=== PATIENT | female | born 1935 | race Caucasian/White ===

== ENCOUNTER 2017-04-30 20:32 | Emergency (ER) | payer MEDICARE, OTHER ==
[~2017-04-30] VITALS: Ht 162.6 cm; Wt 83.5 kg
--- OUTSIDE RECORDS SUMMARY | ~2017-04-30 | XMS | Clinical Summary ---
Demographics + + + | Address | [address] | | | [place] [address] | + + + | Home Phone | | + + + | Preferred Language | Unknown | + + + | Marital Status | Single | + + + | Roman Catholic Affiliation | Unknown | + + + [...] | Unavailable | + + + Support +------+ +---------+ + | Name | Relationship | Address | Phone | +------+ +---------+ + ECON | Unknown | Unavailable | +------+ +---------+ + Care Team Providers + +------+-------+ | Care Process Line Operator Name | Role | Phone | + +------+-------+ | Tanvir Waters DO | PP | tel | + +------+-------+ Source Comments BOGDAN is fully live on both [facility] Ambulatory and [facility] InPatient.[facility] Allergies + + + + + + [...] 1 Tab by mouth | | | 12/20 | | Activ | | Oral Tablet | every two days. | | | 09/07 | | e | | | | | | 11 | | | + + +-------+---------+------+------+-------+ | ALPRAZolam XR 2 mg | Take 1 Tab by mouth | | | 08/2 | | Activ | | Oral Tablet | once daily at | | | 4/20 | | e | | Extended Release [...] kidney disease) stage 4, GFR 15-29 ml/min (HCC) | | + +---+ + + | 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 | | GFR < 20 mL/min | + + + +---+ | Diabetes mellitus, type II (HCC) | | + +---+ + + [...] + +---+ | Reactive airways dysfunction syndrome | | + +---+ + + | [...] lumpectomy approximately for benign | | disease 2003 | + + Social History + + [...] | + + + + + | INFLUENZA VACCINE | | | | | (FLU SHOT) | 7 | | | + + + + + Results Not on filefrom Last 3 Months
[~2017-04-30 20:32] MED LIST: ACETAMINOPHEN325 M1 PO; ALBUTEROL SULFAT4 MG PO; ALPRAZOLAM2 MG PO; AMLODIPINE BES2.5 MG PO; ATROVENT HFA12.9 GM INH; BENADRYL25 MG PO; COREG25 MG PO; EFFEXOR XR150 MG PO; FUROSEMIDE40 MG PO; KEFLEX500 MG PO; LISINOPRIL5 MG PO; LOSARTAN POTASS50 MG PO; NORCO 5-325 TA1 EACH PO; NOVOLOG MI100 UNIT/1 SUB-Q; OMEPRAZOLE20 MG PO; PARICALCITOL2 MCG PO; POTASSIUM CHLO20 ME1 PO; PRAVASTATIN SOD40 MG PO
== END 2017-04-30 21:00 | disposition left against medical advice (07) ==
LOC: ED 20:32
DX: Z53.21 Procedure and treatment not carried out due to patient leaving prior to being seen by health care provider (principal)

== ENCOUNTER 2018-08-07 11:50 | Observation (INO) | payer MEDICARE, OTHER, MEDICAID ==
[~2018-08-07] VITALS: Ht 162.6 cm; Wt 83.5 kg
--- OUTSIDE RECORDS SUMMARY | ~2018-08-07 | XMS | Encounter Summary ---
Demographics + + + | Address | [address] | | | [place] [address] | + + + | Home Phone | | + + + | Preferred Language | Unknown | + + + | Marital Status | Single | + + + | Adventist Affiliation | [phone] | + + + | Race | Unknown | + + + | Ethnic Group | Unknown | + + + Author + + + | Author | [facility] | | | and [place] | + + + | Organization | [facility] | | | and [place] | + + + | Address | Unknown | + + + | Phone | Unavailable | + + + Support + + + + + | Name | Relationship | Address | Phone | + + + + + | Brissa Dale | ECON | [address] | | | | | [place] | | | | | [address] | | + + + + + Care Team Providers + +------+ + | Care Auger Mill Operator Name | Role | Phone | + +------+ + | Shaan Manzanares PCP | | | MD | | | + +------+ + Encounter Details +--------+ + + + + | Date | Type | Department | Care Team | Description | +--------+ + + + + | 06/03/ | Orders Only | [facility] | Andre Pickett | CHRONIC KIDNEY | | 2019 | | NEPHROLOGY [address] | M, DO [address] | DISEASE STAGE IV | | | | [address] | [place] | ([place]) (Primary | | | | [place], [place] | [place], [place] | Dx); Mixed | | | | [address] | [address] | hyperlipidemia; Type | | | | [phone] | | 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 | | | | | | disease, unspecified | | | | | | whether prison | | | | | | insulin use (HCC) | +--------+ + + + + Social History + + + +--------+ + | Tobacco Use | Types | Packs/Day | Years | Date | | | | | Used | | + + + +--------+ + | Former Smoker | Cigarettes | 1 | 15 | Quit: 05/21/1983 | + + + +--------+ + + +---+---+---+ | Smokeless Tobacco: | | | | | Never Used | | | | + +---+---+---+ + + +---------+ + | Alcohol Use | Drinks/We | oz/Week | Comments | | | ek | | | + + +---------+ + | No | | | | + + +---------+ + + + + | Sex Assigned at | Date Recorded | | | | + + + | Not on file | | + + + as of this encounter Functional Status + + + + | Functional Status | Response | Date of Assessment | + + + + | Are you deaf or do you have serious | No | 09/12/2013 | | difficulty hearing? | | | + + + + | Are you blind or do you have serious | No | 09/12/2013 | | difficulty seeing, even when wearing | | | | glasses? | | | + + + + | Do you have serious difficulty walking or | Yes | 09/12/2013 | | climbing stairs? (5 years old or older) | | | + + + + | Do you have difficulty dressing or bathing? | No | 09/12/2013 | | (5 years old or older) | | | + + + + | Because of a physical, mental, or emotional | No | 09/12/2013 | | condition, do you have difficulty doing | | | | errands alone such as visiting a doctor's | | | | office or shopping? [15 years old or | | | | older)] | | | + + + + + + + + | Cognitive Status | Response | Date of Assessment | + + + + | Because of a physical, mental, or emotional | No | 09/12/2013 | | condition, do you have serious difficulty | | | | concentrating, remembering, or making | | | | decisions? (5 years old or older) | | | + + + + as of this encounter Progress Notes Lizebth Negro RN - 06/03/2018 1626 PSTLabs for nephrology appt on 07/01/18 sent to Arsenio santiago in this encounter Plan of Treatment +--------+ + + + + | Date | Type | Specialty | Care Team | Description | +--------+ + + + + | 08/19/ | Off-Site | Nephrology | [facility]ett | | | 2018 | Visit | | Colin, [address] [place] [address] | | | | | | [place], [address] | | | | | | [place] | | | | | | [phone] | | | | | | | | +--------+ + + + + as of this encounter Visit Diagnoses + + | Diagnosis | + + | CHRONIC KIDNEY DISEASE STAGE IV (SEVERE) - Primary | + + | Chronic kidney disease, Stage IV (severe) | + + | Mixed hyperlipidemia | + + | Type 2 diabetes mellitus with stage 4 chronic kidney disease, unspecified whether long | | term insulin use (HCC) | + +"
--- OUTSIDE RECORDS SUMMARY | ~2018-08-07 | XMS | Clinical Summary ---
Demographics + + + | Address | [address] | | | [place] [address] | + + + | Home Phone | | + + + | Preferred Language | Unknown | + + + | Marital Status | Single | + + + | Church Affiliation | Unknown | + + + | Race | Unknown | + + + | Ethnic Group | Unknown | + + + Author + + + | Author | [facility] | + + + | Organization | [facility] | + + + | Address | Unknown | + + + | Phone | Unavailable | + + + Support + + + + + | Name | Relationship | Address | Phone | + + + + + | Brissa Corrales | ECON | [address] | | | | | [place] | | | | | [address] | | + + + + + Care Team Providers + +------+ + | Care Fertilizer Mixer Name | Role | Phone | + +------+ + | Hardik Waters DO | PP | | + +------+ + Allergies + + + + + + | Active Allergy | Reactions | Severity | Noted | Comments | | | | | Date | | + + + + + + | Sulfa Antibiotics | Hives | High | 06/08/19 | | | | | | 15 | | + + + + + + Current Medications + + +-------+---------+------+------+-------+ | Prescription | Sig. | Disp. | Refills | Star | End | Statu | | | | | | t | Date | s | | | | | | Date | | | + + +-------+---------+------+------+-------+ | carvedilol (COREG) | Take 25 mg by mouth | | | | | Activ | | 25 MG tablet | 2 (two) times daily | | | | | e | | | with meals. | | | | | | + + +-------+---------+------+------+-------+ | venlafaxine | Take 75 mg by mouth | | | | | Activ | | (EFFEXOR) 75 MG | 3 (three) times | | | | | e | | tablet | daily. | | | | | | + + +-------+---------+------+------+-------+ | furosemide (LASIX) | Take 40 mg by mouth | | | | | Activ | | 40 MG tablet | 2 (two) times daily. | | | | | e | + + +-------+---------+------+------+-------+ | omeprazole | Take 20 mg by mouth | | | | | Activ | | (PRILOSEC) 20 MG | every morning before | | | | | e | | capsule | breakfast. | | | | | | + + +-------+---------+------+------+-------+ | pravastatin | Take 40 mg by mouth | | | | | Activ | | (PRAVACHOL) 40 MG | nightly. | | | | | e | | tablet | | | | | | | + + +-------+---------+------+------+-------+ | ALPRAZolam (XANAX | Take 2 mg by mouth | | | | | Activ | | XR) 2 MG 24 hr | every morning. | | | | | e | | tablet | | | | | | | + + +-------+---------+------+------+-------+ | paricalcitol | Take 1 mcg by mouth | | | | | Activ | | (ZEMPLAR) 1 MCG | daily. | | | | | e | | capsule | | | | | | | + + +-------+---------+------+------+-------+ | insulin aspart | Inject into the | | | | | Activ | | (NOVOLOG) 100 | skin 3 (three) times | | | | | e | | UNIT/ML injection | daily before meals. | | | | | | + + +-------+---------+------+------+-------+ | diphenhydrAMINE | Take 25 mg by mouth | | | | | Activ | | (BENADRYL) 25 mg | every 6 (six) hours | | | | | e | | capsule | as needed for | | | | | | | | Itching. | | | | | | + + +-------+---------+------+------+-------+ | acetaminophen | Take 325 mg by mouth | | | | | Activ | | (TYLENOL) 325 MG | every 6 (six) hours | | | | | e | | tablet | as needed for Pain. | | | | | | + + +-------+---------+------+------+-------+ | nitroGLYCERIN | Place 0.6 mg under | | | | | Activ | | (NITROSTAT) 0.6 MG | the tongue every 5 | | | | | e | | SL tablet | (five) minutes as | | | | | | | | needed for Chest | | | | | | | | pain. | | | | | | + + +-------+---------+------+------+-------+ | amLODIPine | Take 5 mg by mouth | | | | | Activ | | (NORVASC) 5 MG | daily. | | | | | e | | tablet | | | | | | | + + +-------+---------+------+------+-------+ | ipratropium | Take 0.5 mg by | | | | | Activ | | (ATROVENT) 0.02 % | nebulization 4 | | | | | e | | nebulizer solution | (four) times daily. | | | | | | + + +-------+---------+------+------+-------+ Active Problems Not on file Social History + +-------+ +--------+------+ | Tobacco Use | Types | Packs/Day | Years | Date | | | | | Used | | + +-------+ +--------+------+ | Former Smoker | | | | | + +-------+ +--------+------+ + + +---------+ + | Alcohol Use | Drinks/We | oz/Week | Comments | | | ek | | | + + +---------+ + | No | | | | + + +---------+ + + + + | Sex Assigned at | Date Recorded | | | | + + + | Not on file | | + + + Last Filed Vital Signs + + + + | Vital Sign | Reading | Time Taken | + + + + | Blood Pressure | 162/67 | 06/08/2014 4:28 PM PST | + + + + | Pulse | 79 | 06/08/2014 4:28 PM PST | + + + + | Temperature | 36.9 C (98.5 F) | 06/08/2014 1:18 PM PST | + + + + | Respiratory Rate | 16 | 06/08/2014 4:28 PM PST | + + + + | Oxygen Saturation | 97% | 06/08/2014 4:28 PM PST | + + + + | Inhaled Oxygen | - | - | | Concentration | | | + + + + | Weight | 88 kg (194 lb) | 06/08/2014 1:18 PM PST | + + + + | Height | 162.6 cm (5' 4") | 06/08/2014 1:18 PM PST | + + + + | Body Mass Index | 33.3 | 06/08/2014 1:18 PM PST | + + + + Plan of Treatment Not on file Results Not on filefrom Last 3 Months Insurance + +--------+ +------+-------+ + | Payer | Benefi | Subscriber | Type | Phone | Address | | | t Plan | ID | | | | | | / | | | | | | | Group | | | | | + +--------+ +------+-------+ + | MEDICARE | MEDICA | [id number] | | | [address] | | | RE | | | | [place] [address] | | | IP-OP | | | | | + +--------+ +------+-------+ + | [employer] | ODS | [id number] | | | | | | HEALTH | | | | | | | PLAN | | | | | + +--------+ +------+-------+ + + +--------+ +--------+ + + | Guarantor Name | Accoun | Relation to | Date | Phone | Billing Address | | | t Type | Patient | of | | | | | | | | | | + +--------+ +--------+ + + | DALIA KAT | Person | Self [birth year] Home: | [address] | | | man[place] | | 1936 | [phone] [place] | | | [place] | | | [phone] | [phone] | + +--------+ +--------+ + +
--- OUTSIDE RECORDS SUMMARY | ~2018-08-07 | XMS | Clinical Summary ---
Demographics + + + | Address | [address] | | | [place] [address] | + + + | Home Phone | | + + + | Preferred Language | Unknown | + + + | Marital Status | Single | + + + | Buddhist Affiliation | 1041 | + + + | Race | Unknown | + + + | Ethnic Group | Unknown | + + + Author + + + | Author | [facility] | | | and [place] | + + + | Organization | [facility] | | | [...] [place] | | | | | [address] | | + + + + + Care Team Providers + +------+ + | Care Director Of Industrial Relations Name | Role | Phone | + +------+ + | Shaan Manzanares | PP | | | MD | | | + +------+ + Allergies + + + + + + | Active Allergy | Reactions | Severity | Noted | Comments | | | | | Date | | + + + + + + | Codeine Sulfate | Itching | Low | | | + + + + + + | Oxycodone | Itching | Low | 01/19/20 | | | | | | 11 | | + + + + + + | Sulfa Antibiotics | Rash | Low | | | + + + + + + Current Medications + + +---------+---------+------+------+-------+ | Prescription | Sig. | Disp. | Refills | Star | End | Statu | | | | | | t | Date | s | | | | | | Date | | | + + +---------+---------+------+------+-------+ | carvedilol (COREG) | Take 25 mg by mouth | | | 05/1 | | Activ | | 25 mg tablet | 2 times daily. | | | 01/07 | | e | | | | | | 12 | | | + + +---------+---------+------+------+-------+ | pravastatin | Take 40 mg by mouth | | | 09/18 | | Activ | | (PRAVACHOL) 40 MG | Daily. | | | 01/07 | | e | | tablet | | | | 12 | | | + + +---------+---------+------+------+-------+ | furosemide (LASIX) | Take 40 mg by mouth | | | 09/18 | | Activ | | 40 mg | 2 times daily. | | | 01/07 | | e | | tabletIndications: | | | | 12 | | | | Chronic kidney | | | | | | | | disease, stage III | | | | | | | | (moderate) ([facility]), | | | | | | | | Anemia in chronic | | | | | | | | kidney | | | | | | | | disease(285.21), | | | | | | | | Diabetes mellitus, | | | | | | | | type 2 ([facility]), CHF | | | | | | | | (congestive heart | | | | | | | | failure) ([facility]), | | | | | | | | Chronic kidney | | | | | | | | failure | | | | | | | + + +---------+---------+------+------+-------+ | insulin aspart | Inject 10 Units | | | | | Activ | | protamine-insulin | under the skin 2 | | | | | e | | aspart (NOVOLOG MIX | times daily (with | | | | | | | 70/30 FLEXPEN) 100 | breakfast & dinner). | | | | | | | units/mL | | | | | | | | injectionIndications | | | | | | | | : Chronic kidney | | | | | | | | disease, stage III | | | | | | | | (moderate) (HCC), | | | | | | | | Anemia in chronic | | | | | | | | kidney | | | | | | | | disease(285.21), | | | | | | | | Diabetes mellitus, | | | | | | | | type 2 (HCC), | | | | | | | | Secondary | | | | | | | | hyperparathyroidism | | | | | | | | (HCC) | | | | | | | + + +---------+---------+------+------+-------+ | venlafaxine | Take 75 mg by mouth. | | | | | Activ | | (EFFEXOR XR) 75 mg | total of 225 mg, | | | | | e | | 24 hr | daily. | | | | | | | capsuleIndications: | | | | | | | | Chronic kidney | | | | | | | | disease, stage IV | | | | | | | | (severe) (HCC), | | | | | | | | Diabetes mellitus, | | | | | | | | type 2 (HCC), Other | | | | | | | | and unspecified | | | | | | | | hyperlipidemia, | | | | | | | | Unspecified | | | | | | | | essential | | | | | | | | hypertension | | | | | | | + + +---------+---------+------+------+-------+ | venlafaxine | Take 150 mg by mouth | | | | | Activ | | (EFFEXOR XR) 150 mg | Daily. total of 225 | | | | | e | | 24 hr | mg, daily. | | | | | | | capsuleIndications: | | | | | | | | Chronic kidney | | | | | | | | disease, stage IV | | | | | | | | (severe) (HCC), | | | | | | | | Diabetes mellitus, | | | | | | | | type 2 (HCC), Other | | | | | | | | and unspecified | | | | | | | | hyperlipidemia, | | | | | | | | Unspecified | | | | | | | | essential | | | | | | | | hypertension | | | | | | | + + +---------+---------+------+------+-------+ | ATROVENT HFA 17 | Inhale 2 puffs into | | | 02/0 | | Activ | | MCG/ACT inhaler | the lungs Twice | | | 6/20 | | e | | | daily as needed. | | | 14 | | | + + +---------+---------+------+------+-------+ | albuterol (PROAIR | Inhale 2 puffs into | | | 06/0 | | Activ | | HFA) 90 mcg/puff | the lungs every 6 | | | 420 | | e | | inhalerIndications: | hours as needed. | | | 12 | | | | Chronic kidney | | | | | | | | disease, stage IV | | | | | | | | (severe) (HCC), | | | | | | | | Unspecified | | | | | | | | hypertensive kidney | | | | | | | | disease with chronic | | | | | | | | kidney disease | | | | | | | | stage I through | | | | | | | | stage IV, or | | | | | | | | unspecified(403.90), | | | | | | | | Hyperlipidemia, | | | | | | | | Secondary | | | | | | | | hyperparathyroidism | | | | | | | | (HCC) | | | | | | | + + +---------+---------+------+------+-------+ | NITROSTAT 0.4 MG | | | | 10/2 | | Activ | | SL tablet | | | | 8 | | e | | | | | | 14 | | | + + +---------+---------+------+------+-------+ | amLODIPine | Take 2.5 mg by mouth | | | 12/3 | | Activ | | (NORVASC) 5 mg | Daily. | | | 0/20 | | e | | tablet | | | | 14 | | | + + +---------+---------+------+------+-------+ | ALPRAZolam (XANAX | Take 1 tablet by | | 0 | 08/2 | | Activ | | XR) 3 MG 24 hr | mouth every morning. | | | 01/07 | | e | | tablet | | | | 17 | | | + + +---------+---------+------+------+-------+ | losartan (COZAAR) | Take 1 tablet by | 60 | 5 | 08/0 | | Activ | | 25 mg | mouth Daily. | tablet | | 11/07 | | e | | tabletIndications: | | | | 18 | | | | Essential | | | | | | | | hypertension with | | | | | | | | goal blood pressure | | | | | | | | less than 140/90, | | | | | | | | Secondary | | | | | | | | hyperparathyroidism | | | | | | | | (HCC), Chronic | | | | | | | | kidney disease, | | | | | | | | stage IV (severe) | | | | | | | | (HCC), Mixed | | | | | | | | hyperlipidemia | | | | | | | + + +---------+---------+------+------+-------+ | paricalcitol | Take 2 capsules by | 60 | 10 | 10/3 | | Activ | | (ZEMPLAR) 1 mcg | mouth daily. | capsule | | 0/20 | | e | | capsuleIndications: | Indications: | | | 18 | | | | Secondary | secondary | | | | | | | Hyperparathyroidism | hyperparathyroidism | | | | | | + + +---------+---------+------+------+-------+ Active Problems + + + | Problem | Noted Date | + + + | Awaiting kidney transplant status | 10/29/2013 | + + + + + | Overview: Referred to [facility] on 07/26/10 | | Status: Inactive due to GFR too high | + + + + + | CERVICAL STRAIN | 10/13/2011 | + + + | THORACIC STRAIN | 10/13/2011 | + + + | CANDIDIASIS, VAGINAL | 10/13/2011 | + + + | COPD | 10/19/2009 | + + + | ANEMIA IN CHRONIC KIDNEY DISEASE | 10/19/2009 | + + + + + | Overview: ICD-10 Record update | + + + +---+ | HYPERLIPIDEMIA | | + +---+ | DYSURIA | | + +---+ | CHRONIC KIDNEY DISEASE STAGE IV (SEVERE) | | + +---+ | SECONDARY HYPERPARATHYROIDISM | | + +---+ | DIABETES, TYPE 2 | | + +---+ | HYPERTENSION | | + +---+ | GERD | | + +---+ | ANXIETY STATE, UNSPECIFIED | | + +---+ + + | Overview: ICD-10 Record update | + + + +---+ | Migraine headache | | + +---+ | Depression | | + +---+ | CHF (congestive heart failure) (HCC) | | + +---+ | Other and unspecified hyperlipidemia | | + +---+ | Chronic airway obstruction, not elsewhere classified | | + +---+ | Other primary cardiomyopathies | | + +---+ | Type II or unspecified type diabetes mellitus without mention of | | | complication, not stated as uncontrolled | | + +---+ | Secondary hyperparathyroidism (of renal origin) | | + +---+ + + | Overview: ICD-10 Record update | + + + +---+ | Essential hypertension | | + +---+ | Esophageal reflux | | + +---+ | Sprain of neck | | + +---+ | Sprain of thoracic region | | + +---+ Resolved Problems + + + + | Problem | Noted | Resolved | | | Date | Date | + + + + | Unspecified hypertensive kidney disease with chronic kidney | 11/09/19 | | | disease stage I through stage IV, or unspecified(403.90) | 14 | 5 | + + + + | Chronic kidney disease, stage III (moderate) ([facility]) | 02/28/20 | | | | 12 | 5 | + + + + | Asthma | | | | | | 8 | + + + + Encounters +--------+ + + + + | Date | Type | Specialty | Care Team | Description | +--------+ + + + + | 07/17/ | Orders Only | | Andre Pickett | CHRONIC KIDNEY | | 2018 | | | DO Colin | DISEASE STAGE IV | | | | | | (SEVERE) (Primary | | | | | | Dx); Mixed | | | | | | hyperlipidemia; Type | | | | | | 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 | | | | | | disease, unspecified | | | | | | whether terminal make up operator | | | | | | insulin use (HCC) | +--------+ + + + + | 06/21/ | Abstract | | Andre Pickett | | | 2018 | | | DO Colin | | +--------+ + + + + | 01/31/ | Orders Only | | Andre Pickett | CHRONIC KIDNEY | | 2018 | | | M, DO | DISEASE STAGE IV | | | | | | (SEVERE) (Primary | | | | | | Dx); Mixed | | | | | | hyperlipidemia; Type | | | | | | 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 | | | | | | disease, unspecified | | | | | | whether longterm | | | | | | insulin use (HCC) | +--------+ + + + + | 06/11/ | Abstract | | Andre Pickett | | | 2018 | | | M, DO | | +--------+ + + + + | 06/03/ | Orders Only | | Andre Pickett | CHRONIC KIDNEY | | 2018 | | | M, DO | DISEASE STAGE IV | | | | | | (SEVERE) (Primary | | | | | | Dx); Mixed | | | | | | hyperlipidemia; Type | | | | | | 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 | | | | | | disease, unspecified | | | | | | whether longterm | | | | | | insulin use (HCC) | +--------+ + + + + from Last 3 Months Family History + + +------+ + | Medical History | Relation | Name | Comments | + + +------+ + | Diabetes | Other | | | + + +------+ + | Heart disease | Other | | | + + +------+ + | Stroke | Other | | | + + +------+ + + +------+--------+ + | Relation | Name | Status | Comments | + +------+--------+ + | Other | | | | + +------+--------+ + Social History + + + +--------+ [...] + + + | Blood Pressure | 152/60 | 12/24/20171749 PDT | + + + + | Pulse | 81 | 07/20/20141409 PST | + + + + | Temperature | 35.6 C (96 F) | 12/24/20171749 PDT | + + + + | Respiratory Rate | 15 | 07/20/20141409 PST | + + + + | Oxygen Saturation | 97% | 07/20/2014 1410 PST | + + + + | Inhaled Oxygen | - | - | | Concentration | | | + + + + | Weight | 83 kg (183 lb) | 12/24/20171749 PDT | + + + + | Height | 162.6 cm (5' 4") | 07/20/2014 1410 PST | + + + + | Body Mass Index | 31.41 | 12/24/20171749 PDT | + + + + Plan of Treatment +--------+ + + + + | Date | Type | Specialty | Care Team | Description | +--------+ + + + + | 08/19/ | Off-Site | | Andre Pickett | | | 2018 | Visit | | DO [place] [address] | | | | | | [address] | | | | | | [place], [place] | | | | | | [address] | | | | | | | | +--------+ + + + + + + + + + | Health Maintenance | Due Date | Last Done | Comments | + + + + + | Diabetic Eye Exam | | | | | | 6 | | | + + + + + | Diabetic Foot Exam | | | | | | 6 | | | + + + + + | Vaccine: | | | | | Dtap/Tdap/Td (1 - | 7 | | | | Tdap) | | | | + + + + + | Vaccine: Zoster (1 | | | | | of 2) | 8 | | | + + + + + | Vaccine: | | | | | Pneumococcal 65+ | 3 | | | | High/Highest Risk (1 | | | | | of 2 - PCV13) | | | | + + + + + | Adult Annual | | | | | Wellness Visit | 5 | | | + + + + + | Vaccine: Influenza | | | | | (#1) | 8 | | | + + + + + | Hemoglobin A1c Q6 | | 06/20/2018, 06/10/2018, | | | Months | 9 | 12/20/2017, Additional history | | | | | exists | | + + + + + Procedures + +--------+ + + + | Procedure Name | Priori | Date/Time | Associated Diagnosis | Comments | | | ty | | | | + +--------+ + + + | LABS - EXTERNAL SCAN | | 06/20/2018 | | Results for this | | | | 0000 PST | | procedure are in the | | | | | | results section. | + +--------+ + + + | CREATININE | Routin | 06/20/2018 | | Results for this | | CLEARANCE, RESULT | e | 0000 PST | | procedure are in the | | | | | | results section. | + +--------+ + + + | HEMOGLOBIN A1C | Routin | 06/20/2018 | | Results for this | | | e | 0000 PST | | procedure are in the | | | | | | results section. | + +--------+ + + + | EXTERNAL LAB: BUN | Routin | 06/20/2018 | | Results for this | | | e | 0000 PST | | procedure are in the | | | | | | results section. | + +--------+ + + + | EXTERNAL LAB: | Routin | 06/20/2018 | | Results for this | | GLUCOSE | e | 0000 PST | | procedure are in the | | | | | | results section. | + +--------+ + + + | EXTERNAL LAB: ALT | Routin | 06/20/2018 | | Results for this | | | e | 0000 PST | | procedure are in the | | | | | | results section. | + +--------+ + + + | EXTERNAL LAB: AST | Routin | 06/20/2018 | | Results for this | | | e | 0000 PST | | procedure are in the | | | | | | results section. | + +--------+ + + + | EXTERNAL LAB: | Routin | 06/20/2018 | | Results for this | | ALKALINE PHOSPHATASE | e | 0000 PST | | procedure are in the | | | | | | results section. | + +--------+ + + + | EXTERNAL LAB: | Routin | 06/20/2018 | | Results for this | | BILIRUBIN, TOTAL | e | 0000 PST | | procedure are in the | | | | | | results section. | + +--------+ + + + | EXTERNAL LAB: | Routin | 06/20/2018 | | Results for this | | ALBUMIN | e | 0000 PST | | procedure are in the | | | | | | results section. | + +--------+ + + + | EXTERNAL LAB: | Routin | 06/20/2018 | | Results for this | | PROTEIN, TOTAL | e | 0000 PST | | procedure are in the | | | | | | results section. | + +--------+ + + + | EXTERNAL LAB: | Routin | 06/20/2018 | | Results for this | | PHOSPHORUS | e | 0000 PST | | procedure are in the | | | | | | results section. | + +--------+ + + + | EXTERNAL LAB: | Routin | 06/20/2018 | | Results for this | | CALCIUM | e | 0000 PST | | procedure are in the | | | | | | results section. | + +--------+ + + + | EXTERNAL LAB: CARBON | Routin | 06/20/2018 | | Results for this | | DIOXIDE | e | 0000 PST | | procedure are in the | | | | | | results section. | + +--------+ + + + | EXTERNAL LAB: | Routin | 06/20/2018 | | Results for this | | CHLORIDE | e | 0000 PST | | procedure are in the | | | | | | results section. | + +--------+ + + + | EXTERNAL LAB: | Routin | 06/20/2018 | | Results for this | | POTASSIUM | e | 0000 PST | | procedure are in the | | | | | | results section. | + +--------+ + + + | EXTERNAL LAB: SODIUM | Routin | 06/20/2018 | | Results for this | | | e | 0000 PST | | procedure are in the | | | | | | results section. | + +--------+ + + + | EXTERNAL LAB: | Routin | 06/20/2018 | | Results for this | | VITAMIN D, | e | 0000 PST | | procedure are in the | | 25-HYDROXY | | | | results section. | + +--------+ + + + | EXTERNAL LAB: | Routin | 06/20/2018 | | Results for this | | PROTEIN, URINE, 24HR | e | 0000 PST | | procedure are in the | | | | | | results section. | + +--------+ + + + | EXTERNAL LAB: CBC | Routin | 06/20/2018 | | Results for this | | | e | 0000 PST | | procedure are in the | | | | | | results section. | + +--------+ + + + | EXTERNAL LAB: | Routin | 06/20/2018 | | Results for this | | TRIGLYCERIDES | e | 0000 PST | | procedure are in the | | | | | | results section. | + +--------+ + + + | EXTERNAL LAB: | Routin | 06/20/2018 | | Results for this | | CHOLESTEROL, HDL | e | 0000 PST | | procedure are in the | | | | | | results section. | + +--------+ + + + | EXTERNAL LAB: | Routin | 06/20/2018 | | Results for this | | CHOLESTEROL, TOTAL | e | 0000 PST | | procedure are in the | | | | | | results section. | + +--------+ + + + | EXTERNAL LAB: | Routin | 06/20/2018 | | Results for this | | CHOLESTEROL, LDL | e | 0000 PST | | procedure are in the | | | | | | results section. | + +--------+ + + + | EXTERNAL LAB: EGFR | Routin | 06/20/2018 | | Results for this | | | e | 0000 PST | | procedure are in the | | | | | | results section. | + +--------+ + + + | EXTERNAL LAB: | Routin | 06/20/2018 | | Results for this | | CREATININE | e | 0000 PST | | procedure are in the | | | | | | results section. | + +--------+ + + + | LABS - EXTERNAL SCAN | | 06/10/2018 | | Results for this | | | | 0000 PST | | procedure are in the | | | | | | results section. | + +--------+ + + + | EXTERNAL LAB: | Routin | 06/10/2018 | | Results for this | | PROTEIN/CREATININE | e | 0000 PST | | procedure are in the | | RATIO | | | | results section. | + +--------+ + + + | EXTERNAL LAB: PTH, | Routin | 06/10/2018 | | Results for this | | INTACT | e | 0000 PST | | procedure are in the | | | | | | results section. | + +--------+ + + + | HEMOGLOBIN A1C | Routin | 06/10/2018 | | Results for this | | | e | 0000 PST | | procedure are in the | | | | | | results section. | + +--------+ + + + | EXTERNAL LAB: BUN | Routin | 06/10/2018 | | Results for this | | | e | 0000 PST | | procedure are in the | | | | | | results section. | + +--------+ + + + | EXTERNAL LAB: | Routin | 06/10/2018 | | Results for this | | GLUCOSE | e | 0000 PST | | procedure are in the | | | | | | results section. | + +--------+ + + + | EXTERNAL LAB: ALT | Routin | 06/10/2018 | | Results for this | | | e | 0000 PST | | procedure are in the | | | | | | results section. | + +--------+ + + + | EXTERNAL LAB: AST | Routin | 06/10/2018 | | Results for this | | | e | 0000 PST | | procedure are in the | | | | | | results section. | + +--------+ + + + | EXTERNAL LAB: | Routin | 06/10/2018 | | Results for this | | ALKALINE PHOSPHATASE | e | 0000 PST | | procedure are in the | | | | | | results section. | + +--------+ + + + | EXTERNAL LAB: | Routin | 06/10/2018 | | Results for this | | BILIRUBIN, TOTAL | e | 0000 PST | | procedure are in the | | | | | | results section. | + +--------+ + + + | EXTERNAL LAB: | Routin | 06/10/2018 | | Results for this | | ALBUMIN | e | 0000 PST | | procedure are in the | | | | | | results section. | + +--------+ + + + | EXTERNAL LAB: | Routin | 06/10/2018 | | Results for this | | PROTEIN, TOTAL | e | 0000 PST | | procedure are in the | | | | | | results section. | + +--------+ + + + | EXTERNAL LAB: | Routin | 06/10/2018 | | Results for this | | PHOSPHORUS | e | 0000 PST | | procedure are in the | | | | | | results section. | + +--------+ + + + | EXTERNAL LAB: | Routin | 06/10/2018 | | Results for this | | CALCIUM | e | 0000 PST | | procedure are in the | | | | | | results section. | + +--------+ + + + | EXTERNAL LAB: CARBON | Routin | 06/10/2018 | | Results for this | | DIOXIDE | e | 0000 PST | | procedure are in the | | | | | | results section. | + +--------+ + + + | EXTERNAL LAB: | Routin | 06/10/2018 | | Results for this | | CHLORIDE | e | 0000 PST | | procedure are in the | | | | | | results section. | + +--------+ + + + | EXTERNAL LAB: | Routin | 06/10/2018 | | Results for this | | POTASSIUM | e | 0000 PST | | procedure are in the | | | | | | results section. | + +--------+ + + + | EXTERNAL LAB: SODIUM | Routin | 06/10/2018 | | Results for this | | | e | 0000 PST | | procedure are in the | | | | | | results section. | + +--------+ + + + | EXTERNAL LAB: | Routin | 06/10/2018 | | Results for this | | VITAMIN D, | e | 0000 PST | | procedure are in the | | 25-HYDROXY | | | | results section. | + +--------+ + + + | EXTERNAL LAB: CBC | Routin | 06/10/2018 | | Results for this | | | e | 0000 PST | | procedure are in the | | | | | | results section. | + +--------+ + + + | EXTERNAL LAB: | Routin | 06/10/2018 | | Results for this | | TRIGLYCERIDES | e | 0000 PST | | procedure are in the | | | | | | results section. | + +--------+ + + + | EXTERNAL LAB: | Routin | 06/10/2018 | | Results for this | | CHOLESTEROL, HDL | e | 0000 PST | | procedure are in the | | | | | | results section. | + +--------+ + + + | EXTERNAL LAB: | Routin | 06/10/2018 | | Results for this | | CHOLESTEROL, TOTAL | e | 0000 PST | | procedure are in the | | | | | | results section. | + +--------+ + + + | EXTERNAL LAB: | Routin | 06/10/2018 | | Results for this | | CHOLESTEROL, LDL | e | 0000 PST | | procedure are in the | | | | | | results section. | + +--------+ + + + | EXTERNAL LAB: EGFR | Routin | 06/10/2018 | | Results for this | | | e | 0000 PST | | procedure are in the | | | | | | results section. | + +--------+ + + + | EXTERNAL LAB: | Routin | 06/10/2018 | | Results for this | | CREATININE | e | 0000 PST | | procedure are in the | | | | | | results section. | + +--------+ + + + from Last 3 Months Results External Lab: CODY (06/20/2018)Only the most recent of 2 results within the time period is i ncluded. + +--------+ + + | Component | Value | Ref Range | Performed At | + +--------+ + + | BUN, External | 28 (A) | 6 - 23 | EXTERNAL LAB | + +--------+ + + + + | Other Results Text | + + | [facility] | + + + +---------+ + + | Performing | Address | City/State/Zipcode | Phone Number | | Organization | | | | + +---------+ + + | EXTERNAL LAB | | | | + +---------+ + + External Lab: Glucose (06/20/2018)Only the most recent of 2 results within the time period is included. + +---------+ + + | Component | Value | Ref Range | Performed At | + +---------+ + + | Glucose, External | 168 (A) | 70 - 100 | EXTERNAL LAB | + +---------+ + + + + | Other Results Text | + + | [facility] | + + + +---------+ + + | Performing | Address | City/State/Zipcode | Phone Number | | Organization | | | | + +---------+ + + | EXTERNAL LAB | | | | + +---------+ + + External Lab: ALT (06/20/2018)Only the most recent of 2 results within the time period is i ncluded. + +-------+ + + | Component | Value | Ref Range | Performed At | + +-------+ + + | ALT, External | 9 | 7 - 52 | EXTERNAL LAB | + +-------+ + + + + | Other Results Text | + + | [facility] | + + + +---------+ + + | Performing | Address | City/State/Zipcode | Phone Number | | Organization | | | | + +---------+ + + | EXTERNAL LAB | | | | + +---------+ + + External Lab: DEAN (06/20/2018)Only the most recent of 2 results within the time period is i ncluded. + +--------+ + + | Component | Value | Ref Range | Performed At | + +--------+ + + | AST, External | 10 (A) | 13 - 39 | EXTERNAL LAB | + +--------+ + + + + | Other Results Text | + + | [facility] | + + + +---------+ + + | Performing | Address | City/State/Zipcode | Phone Number | | Organization | | | | + +---------+ + + | EXTERNAL LAB | | | | + +---------+ + + External Lab: Alkaline Phosphatase (06/20/2018)Only the most recent of 2 results within the time period is included. + +-------+ + + | Component | Value | Ref Range | Performed At | + +-------+ + + | ALP, External | 65 | 31 - 130 | EXTERNAL LAB | + +-------+ + + + + | Other Results Text | + + | [facility] | + + + +---------+ + + | Performing | Address | City/State/Zipcode | Phone Number | | Organization | | | | + +---------+ + + | EXTERNAL LAB | | | | + +---------+ + + External Lab: Bilirubin, Total (06/20/2018)Only the most recent of 2 results within the is included. + +-------+ + + | Component | Value | Ref Range | Performed At | + +-------+ + + | Bilirubin, Total, | 0.5 | 0 - 1.2 | EXTERNAL LAB | | External | | | | + +-------+ + + + + | Other Results Text | + + | [facility] | + + + +---------+ + + | Performing | Address | City/State/Zipcode | Phone Number | | Organization | | | | + +---------+ + + | EXTERNAL LAB | | | | + +---------+ + + External Lab: Albumin (06/20/2018)Only the most recent of 2 results within the time period is included. + +-------+ + + | Component | Value | Ref Range | Performed At | + +-------+ + + | Albumin, External | 4 | 3.5 - 5 | EXTERNAL LAB | + +-------+ + + + + | Other Results Text | + + | [facility] | + + + +---------+ + + | Performing | Address | City/State/Zipcode | Phone Number | | Organization | | | | + +---------+ + + | EXTERNAL LAB | | | | + +---------+ + + External Lab: Protein, Total (06/20/2018)Only the most recent of 2 results within the time period is included. + +-------+ + + | Component | Value | Ref Range | Performed At | + +-------+ + + | Protein, Total, | 6.1 | 6 - 8.3 | EXTERNAL LAB | | External | | | | + +-------+ + + + + | Other Results Text | + + | [facility] | + + + +---------+ + + | Performing | Address | City/State/Zipcode | Phone Number | | Organization | | | | + +---------+ + + | EXTERNAL LAB | | | | + +---------+ + + External Lab: Phosphorus (06/20/2018)Only the most recent of 2 results within the time karen od is included. + +-------+ + + | Component | Value | Ref Range | Performed At | + +-------+ + + | Phosphorus, External | 3.5 | 2.5 - 5 | EXTERNAL LAB | + +-------+ + + + + | Other Results Text | + + | [facility] | + + + +---------+ + + | Performing | Address | City/State/Zipcode | Phone Number | | Organization | | | | + +---------+ + + | EXTERNAL LAB | | | | + +---------+ + + External Lab: Calcium (06/20/2018)Only the most recent of 2 results within the time period is included. + +-------+ + + | Component | Value | Ref Range | Performed At | + +-------+ + + | Calcium, External | 9.7 | 8.5 - 10.3 | EXTERNAL LAB | + +-------+ + + + + | Other Results Text | + + | [facility] | + + + +---------+ + + | Performing | Address | City/State/Zipcode | Phone Number | | Organization | | | | + +---------+ + + | EXTERNAL LAB | | | | + +---------+ + + External Lab: Carbon Dioxide (06/20/2018)Only the most recent of 2 results within the time period is included. + +--------+ + + | Component | Value | Ref Range | Performed At | + +--------+ + + | Carbon Dioxide, | 28 (A) | 6 - 23 | EXTERNAL LAB | | External | | | | + +--------+ + + + + | Other Results Text | + + | [facility] | + + + +---------+ + + | Performing | Address | City/State/Zipcode | Phone Number | | Organization | | | | + +---------+ + + | EXTERNAL LAB | | | | + +---------+ + + External Lab: Chloride (06/20/2018)Only the most recent of 2 results within the time period is included. + +-------+ + + | Component | Value | Ref Range | Performed At | + +-------+ + + | Chloride, External | 101 | 95 - 112 | EXTERNAL LAB | + +-------+ + + + + | Other Results Text | + + | [facility] | + + + +---------+ + + | Performing | Address | City/State/Zipcode | Phone Number | | Organization | | | | + +---------+ + + | EXTERNAL LAB | | | | + +---------+ + + External Lab: Potassium (06/20/2018)Only the most recent of 2 results within the time dipika cardona is included. + +-------+ + + | Component | Value | Ref Range | Performed At | + +-------+ + + | Potassium, External | 3.6 | 3.6 - 5.1 | EXTERNAL LAB | + +-------+ + + + + | Other Results Text | + + | [facility] | + + + +---------+ + + | Performing | Address | City/State/Zipcode | Phone Number | | Organization | | | | + +---------+ + + | EXTERNAL LAB | | | | + +---------+ + + External Lab: Sodium (06/20/2018)Only the most recent of 2 results within the time period i s included. + +-------+ + + | Component | Value | Ref Range | Performed At | + +-------+ + + | Sodium, External | 143 | 132 - 143 | EXTERNAL LAB | + +-------+ + + + + | Other Results Text | + + | [facility] | + + + +---------+ + + | Performing | Address | City/State/Zipcode | Phone Number | | Organization | | | | + +---------+ + + | EXTERNAL LAB | | | | + +---------+ + + External Lab: Vitamin D, 25-Hydroxy (06/20/2018)Only the most recent of 2 results within e time period is included. + +-------+ + + | Component | Value | Ref Range | Performed At | + +-------+ + + | Vitamin D, | 32 | 30 - 100 | EXTERNAL LAB | | 25-Hydroxy, External | | | | + +-------+ + + + + | Specimen | + + | Blood | + + + + | Other Results Text | + + | [facility] | + + + +---------+ + + | Performing | Address | City/State/Zipcode | Phone Number | | Organization | | | | + +---------+ + + | EXTERNAL LAB | | | | + +---------+ + + External Lab: Protein, Urine, 24Hr (06/20/2018) + +-------+ + + | Component | Value | Ref Range | Performed At | + +-------+ + + | Protein, Urine 24Hr, | 255 | | EXTERNAL LAB | | External | | | | + +-------+ + + + + | Specimen | + + | Urine | + + + + | Other Results Text | + + | [facility] | + + + +---------+ + + | Performing | Address | City/State/Zipcode | Phone Number | | Organization | | | | + +---------+ + + | EXTERNAL LAB | | | | + +---------+ + + External Lab: CBC (06/20/2018)Only the most recent of 2 results within the time period is i ncluded. + + + + + | Component | Value | Ref Range | Performed At | + + + + + | WBC, External | 5.6 | 4.5 - 11 | EXTERNAL LAB | + + + + + | HGB, External | 11.9 (A) | 12 - 16 | EXTERNAL LAB | + + + + + | HCT, External | 35.9 | 35 - 45 | EXTERNAL LAB | + + + + + | PLT, External | 203 | 140 - 440 | EXTERNAL LAB | + + + + + | RBC, External | 3.66 (A) | 3.8 - 5.1 | EXTERNAL LAB | + + + + + | MCV, External | 98 | 81 - 99 | EXTERNAL LAB | + + + + + | RDW, External | 16.5 (A) | 10.5 - 15 | EXTERNAL LAB | + + + + + + + | Other Results Text | + + | [facility] | + + + +---------+ + + | Performing | Address | City/State/Zipcode | Phone Number | | Organization | | | | + +---------+ + + | EXTERNAL LAB | | | | + +---------+ + + External Lab: Triglycerides (06/20/2018)Only the most recent of 2 results within the time nash fonseca is included. + +---------+ + + | Component | Value | Ref Range | Performed At | + +---------+ + + | Triglycerides, | 157 (A) | 30 - 150 | EXTERNAL LAB | | External | | | | + +---------+ + + + + | Specimen | + + | Blood | + + + + | Other Results Text | + + | [facility] | + + + +---------+ + + | Performing | Address | City/State/Zipcode | Phone Number | | Organization | | | | + +---------+ + + | EXTERNAL LAB | | | | + +---------+ + + External Lab: Cholesterol, HDL (06/20/2018)Only the most recent of 2 results within the period is included. + +-------+ + + | Component | Value | Ref Range | Performed At | + +-------+ + + | HDL Cholesterol, | 47.9 | 40 mg/dl | EXTERNAL LAB | | External | | | | + +-------+ + + + + | Specimen | + + | Blood | + + + + | Other Results Text | + + | [facility] | + + + +---------+ + + | Performing | Address | City/State/Zipcode | Phone Number | | Organization | | | | + +---------+ + + | EXTERNAL LAB | | | | + +---------+ + + External Lab: Cholesterol, Total (06/20/2018)Only the most recent of 2 results within the period is included. + +-------+ + + | Component | Value | Ref Range | Performed At | + +-------+ + + | Cholesterol, Total, | 178 | 200 mg/dl | EXTERNAL LAB | | External | | | | + +-------+ + + + + | Specimen | + + | Blood | + + + + | Other Results Text | + + | [facility] | + + + +---------+ + + | Performing | Address | City/State/Zipcode | Phone Number | | Organization | | | | + +---------+ + + | EXTERNAL LAB | | | | + +---------+ + + External Lab: Cholesterol, LDL (06/20/2018)Only the most recent of 2 results within the is included. + +-------+ + + | Component | Value | Ref Range | Performed At | + +-------+ + + | LDL Cholesterol, | 99 | 100 | EXTERNAL LAB | | External | | | | + +-------+ + + + + | Specimen | + + | Blood | + + + + | Other Results Text | + + | [facility] | + + + +---------+ + + | Performing | Address | City/State/Zipcode | Phone Number | | Organization | | | | + +---------+ + + | EXTERNAL LAB | | | | + +---------+ + + External Lab: eGFR (06/20/2018)Only the most recent of 2 results within the time period is included. + +-------+ + + | Component | Value | Ref Range | Performed At | + +-------+ + + | eGFR, External | 19 | | EXTERNAL LAB | + +-------+ + + + + | Specimen | + + | Blood | + + + + | Other Results Text | + + | [facility] | + + + +---------+ + + | Performing | Address | City/State/Zipcode | Phone Number | | Organization | | | | + +---------+ + + | EXTERNAL LAB | | | | + +---------+ + + External Lab: Creatinine (06/20/2018)Only the most recent of 2 results within the time karen od is included. + +---------+ + + | Component | Value | Ref Range | Performed At | + +---------+ + + | Creatinine, External | 2.5 (A) | 0.7 - 1.11 | EXTERNAL LAB | + +---------+ + + + + | Specimen | + + | Blood | + + + + | Other Results Text | + + | [facility] | + + + +---------+ + + | Performing | Address | City/State/Zipcode | Phone Number | | Organization | | | | + +---------+ + + | EXTERNAL LAB | | | | + +---------+ + + LABS - EXTERNAL SCAN (06/20/2018)Only the most recent of 2 results within the time period i s included. + + + | Narrative | Performed At | + + + | Ordered by an | | | unspecified provider. | | + + + Creatinine Clearance, Result (06/20/2018) + + + + + | Component | Value | Ref Range | Performed At | + + + + + | CREATININE CLEARANCE | 26.0 (A) | 88.0 - 128.0 mL/min | | + + + + + | 24H Urine Volume | 2,550 (A) | 15 - 65 mL | | + + + + + | PTH Intact, External | 74.30 | | | + + + + + + + | Specimen | + + | Urine | + + Hemoglobin A1C (06/20/2018)Only the most recent of 2 results within the time period is incl uded. + +-------+ + + | Component | Value | Ref Range | Performed At | + +-------+ + + | Hemoglobin A1c | 6.3 | % | EXTERNAL LAB | + +-------+ + + + + | Specimen | + + | Blood | + + + + | Other Results Text | + + | [facility] | + + + +---------+ + + | Performing | Address | City/State/Zipcode | Phone Number | | Organization | | | | + +---------+ + + | EXTERNAL LAB | | | | + +---------+ + + External Lab: PTH, Intact (06/10/2018) + +-------+ + + | Component | Value | Ref Range | Performed At | + +-------+ + + | PTH Intact, External | 80.51 | 12 - 88 | | + +-------+ + + External Lab: Protein/Creatinine Ratio (06/10/2018) + +-------+ + + | Component | Value | Ref Range | Performed At | + +-------+ + + | Protein/Creatinine | 0.178 | 0.2 | | | Ratio, External | | | | + +-------+ + + from Last 3 Months Insurance + +--------+ +--------+ + + | Payer | Benefi | Subscriber | Type | Phone | Address | | | t Plan | ID | | | | | | / | | | | | | | Group | | | | | + +--------+ +--------+ + + | MEDICARE | MEDICA | [id number] | Medica | [phone] | | | RE | | re | [phone] | | | | PART A | | | | | | | AND B | | | | | + +--------+ +--------+ + + | MODA | MODA | [id number] | Indemn | [phone] | [address] [address] | | | HEALTH | | ity | [phone] | [place] [address] | | | MDCR | | | | | | | SUPPL | | | | | + +--------+ +--------+ + + + +--------+ +--------+ + + | Guarantor Name | Accoun | Relation to | Date | Phone | Billing Address | | | t Type | Patient | of | | | | | | | | | | + +--------+ +--------+ + + | DALIA KAT | Person | Self [birth year] Home: | [address] | | [place] | al/Fam | | 1936 | [phone] | [address] | | | [address] | | | [phone] | [place] [address] | + +--------+ +--------+ + +
--- OUTSIDE RECORDS SUMMARY | ~2018-08-07 | XMS | Clinical Summary ---
Demographics + + + | Address | [address] | | | [place] [address] | + + + | Home Phone | | + + + | Preferred Language | Unknown | + + + | Marital Status | Single | + + + | Methodist Affiliation | Unknown | + + + | Race | Unknown | + + + | Ethnic Group | Unknown | + + + Author + + + | Author | [facility] | + + + | Organization | [facility] | + + + | Address | Unknown | + + + | Phone | Unavailable | + + + Support + + + + + | Name | Relationship | Address | Phone | + + + + + | Brissa Corrales | ECON | [address] | | | | | [place] | | | | | [address] | | + + + + + Care Team Providers + +------+ + | Care Sports Photographer Name | Role | Phone | + [...] +------+-------+ + | MEDICARE | MEDICA | [id number] | | | [address] | | | RE | | | | [place] [address] | | | IP-OP | | | | | + +--------+ +------+-------+ + | ODS HEALTH PLAN | ODS | [id number] | | | | | | HEALTH [...] | | | [place] | | | [phone] | [address] | + +--------+ +--------+ + +
--- OUTSIDE RECORDS SUMMARY | ~2018-08-07 | XMS | Encounter Summary ---
Demographics + + + | Address | [address] [facility] | | | [place] [address] | + + + | Home Phone [...] + + + | Author | [facility] | | | and [place] | + + + | Organization | 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
--- OUTSIDE RECORDS SUMMARY | ~2018-08-07 | XMS | Encounter Summary ---
Demographics + + + | Address | [address] | | | [place] [address] | + + + | Home Phone | | + + + | Preferred Language | Unknown | + + + | Marital Status | Single | + + + | Episcopal Affiliation | 1041 | + + + | Race | Unknown | + + + | Ethnic Group | Unknown | + + + Author + + + | Author | [facility] | | | and [place] | + + + | Organization | [facility] | | [...] [place] | | | | | [address] | | + + + + + Care Team Providers + +------+ + | Care Groundsman Name | Role | Phone | + +------+ + | Shaan Manzanares PCP | | | MD | | | + +------+ + Encounter Details +--------+ + + + + | Date | Type | Department | Care Team | Description | +--------+ + + + + | 06/21/ | Abstract | [facility] | Andre Pickett | | | 2019 | | NEPHROLOGY [address] | M, DO [address] | | | | | [address] | [place] | | | | | [place], [place] | [place], [place] | | | | | [address] | [address] | | | | | [phone] | | | +--------+ + + + [...] + + + as of this encounter Plan of Treatment +--------+ + + + + | Date | Type | Specialty | Care Team | Description | +--------+ + + + + | 08/19/ | Off-Site | Nephrology | Andre Pickett | | | 2018 | Visit | | DO [address] | | | | | | [address] | | | | | | [place], [place] | | | | | | [address] | | | | | | | | +--------+ + + + + as of this encounter Procedures + +--------+ + + + | Procedure Name | Priori | Date/Time | Associated Diagnosis | Comments | | | ty | | | | + +--------+ + + + | EXTERNAL LAB: CODY | Routin | 06/20/2018 | | Results [...] section. | + +--------+ + + + in this encounter Results Creatinine Clearance, Result (06/20/2018) + + + [...] | Urine | + + Hemoglobin A1C (06/20/2018) + +-------+ + + | Component [...] | + +---------+ + + External Lab: CODY (06/20/2018) + +--------+ + + | Component | [...] + +---------+ + + External Lab: Glucose (06/20/2018) + +---------+ + + | Component | [...] + +---------+ + + External Lab: ALT (06/20/2018) + +-------+ + + | Component [...] + +---------+ + + External Lab: AST (06/20/2018) + +--------+ + + | Component | [...] +---------+ + + External Lab: Alkaline Phosphatase (06/20/2018) + +-------+ + + | Component [...] +---------+ + + External Lab: Bilirubin, Total (06/20/2018) + +-------+ + + | Component [...] + +---------+ + + External Lab: Albumin (06/20/2018) + +-------+ + + | Component [...] +---------+ + + External Lab: Protein, Total (06/20/2018) + +-------+ + + | Component [...] + +---------+ + + External Lab: Phosphorus (06/20/2018) + +-------+ + + | Component [...] + +---------+ + + External Lab: Calcium (06/20/2018) + +-------+ + + | Component [...] +---------+ + + External Lab: Carbon Dioxide (06/20/2018) + +--------+ + + | Component | [...] + +---------+ + + External Lab: Chloride (06/20/2018) + +-------+ + + | Component [...] + +---------+ + + External Lab: Potassium (06/20/2018) + +-------+ + + | Component [...] + +---------+ + + External Lab: Sodium (06/20/2018) + +-------+ + + | Component [...] + + External Lab: Vitamin D, 25-Hydroxy (06/20/2018) + +-------+ + + | Component [...] + +---------+ + + External Lab: CBC (06/20/2018) + + + + + | [...] + +---------+ + + External Lab: Triglycerides (06/20/2018) + +---------+ + + | Component | [...] +---------+ + + External Lab: Cholesterol, HDL (06/20/2018) + +-------+ + + | Component [...] +---------+ + + External Lab: Cholesterol, Total (06/20/2018) + +-------+ + + | Component [...] +---------+ + + External Lab: Cholesterol, LDL (06/20/2018) + +-------+ + + | Component [...] + +---------+ + + External Lab: eGFR (06/20/2018) + +-------+ + + | Component [...] + +---------+ + + External Lab: Creatinine (06/20/2018) + +---------+ + + | Component | [...] | | | + +---------+ + + in this encounter Visit Diagnoses Not on filein this encounter"
--- OUTSIDE RECORDS SUMMARY | ~2018-08-07 | XMS | Encounter Summary ---
Demographics + + + | Address | [address] | | | [place] [address] | + + + | Home Phone | | + + + | Preferred Language | Unknown | + + + | Marital Status | Single | + + + | Congregation Affiliation | 1041 | + + + | Race | Unknown | + + + | Ethnic Group | Unknown | + + + Author + + + | Author | [facility] | | | and [place] | + + + | Organization | [facility] | | | and [...] [place] | | | | | [address] | | + + + + + Care Team Providers + +------+ + | Care Wireline Field Operator Name | Role | Phone | [...] | | [address] | [place] | ([place]) (Primary | | | | [place], [place] | [place], [place] | Dx); Mixed | | | | [address] | [address] | hyperlipidemia; Type | | | | [phone] | | 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 | | | | | | disease, unspecified | | | | | | whether usp | | | | | | insulin [...] + as of this encounter Progress Notes Alejandra Rosales RN - 07/17/2018 1537 PSTLabs for upcoming nephrology appointment sent to: Zohreh this encounter Plan of Treatment +--------+ + + + + | Date | Type | Specialty | Care Team | Description | +--------+ + + + + | 08/19/ | Off-Site | Nephrology | Andre Pickett | | | 2018 | Visit | | Colin, [address] [place] [address] | | | | | | [address] | | | | | | [place] | | | | | | [address] | | | | | | | [...] 07/17/2019 | + +--------+ + + | Creatinine Clearance, Result | Routin | CHRONIC KIDNEY | 1 Occurrences | | | e | DISEASE STAGE IV | starting 07/17/2018 | | | | ([place]) | until 07/17/2019 | + +--------+ + + | Protein, Urine, 24Hr | Routin | CHRONIC KIDNEY | 1 [...] unspecified whether | | | | | usp insulin | | | | | use (HCC) | | + +--------+ + + | [...] hyperlipidemia | | + +--------+ + + as of this encounter Visit [...]
--- OUTSIDE RECORDS SUMMARY | ~2018-08-07 | XMS | Clinical Summary ---
Demographics + + + | Address | [address] | | | [place] [address] | + + + | Home Phone | | + + + | Preferred Language | Unknown | + + + | Marital Status | Single | + + + | Holiness Affiliation | Unknown | + + + | Race | Unknown | + + + | Ethnic Group | Unknown | + + + Author + + + | Author | [facility] | + + + | Organization | [facility] | + + + | Address | Unknown | + + + | Phone | Unavailable | + + + Support + + + + + | Name | Relationship | Address | Phone | + + + + + | Brissa Corrales | ECON | [address] | | | | | [place] | | | | | [address] | | + + + + + Care Team Providers + +------+ + | Care Developer Prover Mechanical Name | Role | Phone | + [...] +------+-------+ + | MEDICARE | MEDICA | [id number] | | | [address] | | | RE | | | | [place] [address] | | | IP-OP | | | | | + +--------+ +------+-------+ + | ODS HEALTH PLAN | ODS | [id number] | | | | | | HEALTH [...] | | | [place] | | | [phone] | [address] | + +--------+ +--------+ + +
--- OUTSIDE RECORDS SUMMARY | ~2018-08-07 | XMS | Encounter Summary ---
Demographics + + + | Address | [address] | | | [place] [address] | + + + | Home Phone | | + + + | Preferred Language | Unknown | + + + | Marital Status | Single | + + + | Shinto Affiliation | 1041 | + + + | Race | Unknown | + + + | Ethnic Group | Unknown | + + + Author + + + | Author | [facility] | | | and [place] | + + + | Organization | [facility] | | | [...] [place] | | | | | [address] | | + + + + + Care Team Providers + +------+ + | Care Still Pump Operator Name | Role | Phone | [...] | | [address] | [place] | ([place]) (Primary | | | | [place], [place] | [place], [place] | Dx); Mixed | | | | [phone] | [address] | hyperlipidemia; Type | | | | [phone] | | 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
--- OUTSIDE RECORDS SUMMARY | ~2018-08-07 | XMS | Clinical Summary ---
Demographics + + + | Address | [address] | | | [place] [address] | + + + | Home Phone | | + + + | Preferred Language | Unknown | + + + | Marital Status | Single | + + + | Sikhism Affiliation | 1041 | + + + | Race | Unknown | + + + | Ethnic Group | Unknown | + + + Author + + + | Author | [facility] | | | and [place] | + + + | Organization | [facility] | | [...] [place] | | | | | [address] | | + + + + + Care Team Providers + +------+ + | Care Wood Last Maker Name | Role | Phone | + [...] | | | | | | (moderate) ([facility]), | | | | | | | | Anemia in chronic | | | | | | | | kidney | | | | | | | | disease(285.21), | | | | | | | | Diabetes mellitus, | | | | | | | | type 2 ([facility]), CHF | | | | | | | | (congestive heart | | | | | | | | failure) ([facility]), | | | | | [...] | Chronic kidney disease, stage III (moderate) ([facility]) | 02/28/20 | | | [...] | | | | | | whether laborer marine terminal | | | | | | insulin [...] | Visit | | DO [address] | | | | | | [address] | | | | | | [place], [place] | | | | | | [address] | | | | | | | [...] + + | MEDICARE | MEDICA | [id number] | Medica | [phone] | | | RE | | re | [phone] | | | | PART A | | | | | | | AND B | | | | | + +--------+ +--------+ + + | MODA | MODA | [id number] | Indemn | [phone] | [address] [address] | | | HEALTH | | ity | [phone] | [place] [address] | | | MDCR | | | [...] SHANKAR | al/Fam | | 1936 | [phone] | [address] | | | [address] | | | [phone] | [place] [address] | + +--------+ +--------+ + +
--- OUTSIDE RECORDS SUMMARY | ~2018-08-07 | XMS | Encounter Summary ---
Demographics + + + | Address | [address] | | | [place] [address] | + + + | Home Phone | | + + + | Preferred Language | Unknown | + + + | Marital Status | Single | + + + | Yarsani Affiliation | 1041 | + + + | Race | Unknown | + + + | Ethnic Group | Unknown | + + + Author + + + | Author | [facility] | | | and [place] | + + + | Organization | [facility] | | | and [...] [place] | | | | | [address] | | + + + + + Care Team Providers + +------+ + | Care Exterminator Name | Role | Phone | + [...] | | [address] | [place] | ([place]) (Primary | | | | [place], [place] | [place], [place] | Dx); Mixed | | | | [phone] | [address] | hyperlipidemia; Type | | | | [phone] | | 2 diabetes mellitus | | [...] | Visit | | DO [address] | | | | | | [address] | | | | | | [place] | | | | | | [address] | | | | | | | [...]
--- OUTSIDE RECORDS SUMMARY | ~2018-08-07 | XMS | Encounter Summary ---
Demographics + + + | Address | [address] | | | [place] [address] | + + + | Home Phone | | + + + | Preferred Language | Unknown | + + + | Marital Status | Single | + + + | Rastafarian Affiliation | 1041 | + + + | Race | Unknown | + + + | Ethnic Group | Unknown | + + + Author + + + | Author | [facility] | | | and [place] | + + + | Organization | [facility] | | | [...] [place] | | | | | [address] | | + + + + + Care Team Providers + +------+ + | Care Veneer Jointer Offbearer Name | Role | Phone | + +------+ + | Shaan Manzanares PCP | | | MD | | | + +------+ + Encounter Details +--------+ + + + + | Date | Type | Department | Care Team | Description | +--------+ + + + + | 06/11/ | Abstract | [facility] | Andre Pickett | | | 2019 | | NEPHROLOGY [address] | M, DO [address] | | | | | [address] | [place] | | | | | [place], [place] | [place], [place] | | | | | [address] | [address] | | | | | [phone] | | | +--------+ + + + [...] | Visit | | DO Colin [address] [place] [address] | | | | | | [address] | | | | | | [place], [place] | | | | | | [address] | | | | | | | [...] + + + in this encounter Results External Lab: Protein/Creatinine Ratio (06/10/2018) + +-------+ + + | Component | Value | Ref Range | Performed At | + +-------+ + + | Protein/Creatinine | 0.178 | 0.2 | | | Ratio, External | | | | + +-------+ + + External Lab: PTH, Intact (06/10/2018) + +-------+ + + | Component | Value | Ref Range | Performed At | + +-------+ + + | PTH Intact, External | 80.51 | 12 - 88 | | + +-------+ + + Hemoglobin A1C (06/10/2018) + +-------+ + + | Component | Value | Ref Range | Performed At | + +-------+ + + | Hemoglobin A1c | 6.2 | % | EXTERNAL LAB | + +-------+ + + + + | Specimen | + + | Blood | + + + +---------+ + + | Performing | Address | City/State/Zipcode | Phone Number | | Organization | | | | + +---------+ + + | EXTERNAL LAB | | | | + +---------+ + + External Lab: CODY (06/10/2018) + +-------+ + + | Component | Value | Ref Range | Performed At | + +-------+ + + | BUN, External | 31 | | EXTERNAL LAB | + +-------+ + + + +---------+ + + | Performing | Address | City/State/Zipcode | Phone Number | | Organization | | | | + +---------+ + + | EXTERNAL LAB | | | | + +---------+ + + External Lab: Glucose (06/10/2018) + +-------+ + + | Component | Value | Ref Range | Performed At | + +-------+ + + | Glucose, External | 177 | | EXTERNAL LAB | + +-------+ + + + +---------+ + + | Performing | Address | City/State/Zipcode | Phone Number | | Organization | | | | + +---------+ + + | EXTERNAL LAB | | | | + +---------+ + + External Lab: ALT (06/10/2018) + +-------+ + + | Component | Value | Ref Range | Performed At | + +-------+ + + | ALT, External | 9 | | EXTERNAL LAB | + +-------+ + + + +---------+ + + | Performing | Address | City/State/Zipcode | Phone Number | | Organization | | | | + +---------+ + + | EXTERNAL LAB | | | | + +---------+ + + External Lab: AST (06/10/2018) + +-------+ + + | Component | Value | Ref Range | Performed At | + +-------+ + + | AST, External | 11 | | EXTERNAL LAB | + +-------+ + + + +---------+ + + | Performing | Address | City/State/Zipcode | Phone Number | | Organization | | | | + +---------+ + + | EXTERNAL LAB | | | | + +---------+ + + External Lab: Alkaline Phosphatase (06/10/2018) + +-------+ + + | Component | Value | Ref Range | Performed At | + +-------+ + + | ALP, External | 65 | | EXTERNAL LAB | + +-------+ + + + +---------+ + + | Performing | Address | City/State/Zipcode | Phone Number | | Organization | | | | + +---------+ + + | EXTERNAL LAB | | | | + +---------+ + + External Lab: Bilirubin, Total (06/10/2018) + +-------+ + + | Component | Value | Ref Range | Performed At | + +-------+ + + | Bilirubin, Total, | 0.5 | | EXTERNAL LAB | | External | | | | + +-------+ + + + +---------+ + + | Performing | Address | City/State/Zipcode | Phone Number | | Organization | | | | + +---------+ + + | EXTERNAL LAB | | | | + +---------+ + + External Lab: Albumin (06/10/2018) + +-------+ + + | Component | Value | Ref Range | Performed At | + +-------+ + + | Albumin, External | 3.9 | | EXTERNAL LAB | + +-------+ + + + +---------+ + + | Performing | Address | City/State/Zipcode | Phone Number | | Organization | | | | + +---------+ + + | EXTERNAL LAB | | | | + +---------+ + + External Lab: Protein, Total (06/10/2018) + +-------+ + + | Component | Value | Ref Range | Performed At | + +-------+ + + | Protein, Total, | 6.3 | | EXTERNAL LAB | | External | | | | + +-------+ + + + +---------+ + + | Performing | Address | City/State/Zipcode | Phone Number | | Organization | | | | + +---------+ + + | EXTERNAL LAB | | | | + +---------+ + + External Lab: Phosphorus (06/10/2018) + +-------+ + + | Component | Value | Ref Range | Performed At | + +-------+ + + | Phosphorus, External | 4.1 | | EXTERNAL LAB | + +-------+ + + + +---------+ + + | Performing | Address | City/State/Zipcode | Phone Number | | Organization | | | | + +---------+ + + | EXTERNAL LAB | | | | + +---------+ + + External Lab: Calcium (06/10/2018) + +-------+ + + | Component | Value | Ref Range | Performed At | + +-------+ + + | Calcium, External | 9.2 | | EXTERNAL LAB | + +-------+ + + + +---------+ + + | Performing | Address | City/State/Zipcode | Phone Number | | Organization | | | | + +---------+ + + | EXTERNAL LAB | | | | + +---------+ + + External Lab: Carbon Dioxide (06/10/2018) + +-------+ + + | Component | Value | Ref Range | Performed At | + +-------+ + + | Carbon Dioxide, | 26 | | EXTERNAL LAB | | External | | | | + +-------+ + + + +---------+ + + | Performing | Address | City/State/Zipcode | Phone Number | | Organization | | | | + +---------+ + + | EXTERNAL LAB | | | | + +---------+ + + External Lab: Chloride (06/10/2018) + +-------+ + + | Component | Value | Ref Range | Performed At | + +-------+ + + | Chloride, External | 103 | | EXTERNAL LAB | + +-------+ + + + +---------+ + + | Performing | Address | City/State/Zipcode | Phone Number | | Organization | | | | + +---------+ + + | EXTERNAL LAB | | | | + +---------+ + + External Lab: Potassium (06/10/2018) + +-------+ + + | Component | Value | Ref Range | Performed At | + +-------+ + + | Potassium, External | 3.7 | | EXTERNAL LAB | + +-------+ + + + +---------+ + + | Performing | Address | City/State/Zipcode | Phone Number | | Organization | | | | + +---------+ + + | EXTERNAL LAB | | | | + +---------+ + + External Lab: Sodium (06/10/2018) + +-------+ + + | Component | Value | Ref Range | Performed At | + +-------+ + + | Sodium, External | 143 | | EXTERNAL LAB | + +-------+ + + + +---------+ + + | Performing | Address | City/State/Zipcode | Phone Number | | Organization | | | | + +---------+ + + | EXTERNAL LAB | | | | + +---------+ + + External Lab: Vitamin D, 25-Hydroxy (06/10/2018) + +-------+ + + | Component | Value | Ref Range | Performed At | + +-------+ + + | Vitamin D, | 24 | | EXTERNAL LAB | | 25-Hydroxy, External [...] + +---------+ + + External Lab: CBC (06/10/2018) + +-------+ + + | Component | Value | Ref Range | Performed At | + +-------+ + + | WBC, External | 5.0 | | EXTERNAL LAB | + +-------+ + + | HGB, External | 12.4 | | EXTERNAL LAB | + +-------+ + + | HCT, External | 37.3 | | EXTERNAL LAB | + +-------+ + + | PLT, External | 185 | | EXTERNAL LAB | + +-------+ + + | RBC, External | 3.78 | | EXTERNAL LAB | + +-------+ + + | MCV, External | 99 | | EXTERNAL LAB | + +-------+ + + | RDW, External | 16.3 | | EXTERNAL LAB | + +-------+ + + + +---------+ + + | Performing | Address | City/State/Zipcode | Phone Number | | Organization | | | | + +---------+ + + | EXTERNAL LAB | | | | + +---------+ + + External Lab: Triglycerides (06/10/2018) + +-------+ + + | Component | Value | Ref Range | Performed At | + +-------+ + + | Triglycerides, | 206 | | EXTERNAL LAB | | External [...] +---------+ + + External Lab: Cholesterol, HDL (06/10/2018) + +-------+ + + | Component | Value | Ref Range | Performed At | + +-------+ + + | HDL Cholesterol, | 47.6 | mg/dl | EXTERNAL LAB | | External [...] +---------+ + + External Lab: Cholesterol, Total (06/10/2018) + +-------+ + + | Component | Value | Ref Range | Performed At | + +-------+ + + | Cholesterol, Total, | 171 | mg/dl | EXTERNAL LAB | | External [...] +---------+ + + External Lab: Cholesterol, LDL (06/10/2018) + +-------+ + + | Component | Value | Ref Range | Performed At | + +-------+ + + | LDL Cholesterol, | 82 | | EXTERNAL LAB | | External [...] + +---------+ + + External Lab: eGFR (06/10/2018) + +-------+ + + | Component | Value | Ref Range | Performed At | + +-------+ + + | eGFR, External | 16 | | EXTERNAL LAB | + +-------+ + + + + | Specimen | + + | Blood | + + + +---------+ + + | Performing | Address | City/State/Zipcode | Phone Number | | Organization | | | | + +---------+ + + | EXTERNAL LAB | | | | + +---------+ + + External Lab: Creatinine (06/10/2018) + +-------+ + + | Component | Value | Ref Range | Performed At | + +-------+ + + | Creatinine, External | 2.81 | | EXTERNAL LAB | + +-------+ [...]
--- OUTSIDE RECORDS SUMMARY | ~2018-08-07 | XMS | Encounter Summary ---
Demographics + + + | Address | [address] | | | [place] [address] | + + + | Home Phone | | + + + | Preferred Language | Unknown | + + + | Marital Status | Single | + + + | Orthodoxy Affiliation | 1041 | + + + | Race | Unknown | + + + | Ethnic Group | Unknown | + + + Author + + + | Author | [facility] | | | and [place] | + + + | Organization | [facility] | | | [...] [place] | | | | | [address] | | + + + + + Care Team Providers + +------+ + | Care Guncotton Packer Name | Role | Phone | + [...] | | [address] | [place], [address] | | | | | [place], [place] | [place], [place] | | | | | [address] | [address] | | | | | [phone] | | | +--------+ + + + [...] | Visit | | DO Colin [address] [place] | | | | | | [address] | | | | | | [place], [place] | | | | | | [address] | | | | | | | [...]
--- OUTSIDE RECORDS SUMMARY | ~2018-08-07 | XMS | Clinical Summary ---
Demographics + + + | Address | [address] | | | [place] [address] | + + + | Home Phone | | + + + | Preferred Language | Unknown | + + + | Marital Status | Single | + + + | Rastafari Affiliation | Unknown | + + + [...] Team Providers + +------+ + | Care Poising Inspector Name | Role | Phone | + +------+ + | Tanvir Waters DO | PP | Unavailable | + +------+ + Source Comments [facility]OGDAN is fully live on both [facility] and [facility] InPatient.[facility] Allergies + + + [...] kidney disease) stage 4, GFR 15-29 ml/min ([facility]) | | + +---+ + + | 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 | | GFR < 20 mL/min | + + + +---+ | Diabetes mellitus, type II ([facility]) | | + +---+ + + | [...] | re | [address] | [place] [address] | | | B | | | | | + +--------+ +--------+ + + | MEDICARE RENAL | MEDICA | xxxxxxxxxx | Agency | | RENAL DEPT [id number] | | RECIPIENT EVAL | RE | | | | [place] [address] | | | RENAL | | | | | | | RECIPI | | | | | | | ENT | | | | | | | EVAL | | | | | + +--------+ +--------+ + + | MODA MEDICARE | MODA | xxxxxxxxx | POS | [phone] | [address] [address] | | SUPPLEMENT | MEDICA | | | [phone] | [place] [address] | | | RE | | | [...] | 1936 | +- | [place] [address] | | | heladio | | | [address]87 | | + +--------+ +--------+ + + | DALIA KAT | Specia | Self [birth year] | Home: | [address] | | [place] | l | | 1936 | [phone] | [place] [address] | | | [place] | | | [address] | | | | g | | | | | + +--------+ +--------+ + +
--- OUTSIDE RECORDS SUMMARY | ~2018-08-07 | XMS | Encounter Summary ---
Demographics + + + | Address | [address] | | | [place] [address] | + + + | Home Phone | | + + + | Preferred Language | Unknown | + + + | Marital Status | Single | + + + | Confucianism Affiliation | 1041 | + + + | Race | Unknown | + + + | Ethnic Group | Unknown | + + + Author + + + | Author | [facility] | | | and [place] | + + + | Organization | [facility] | | | [...] [place] | | | | | [address] | | + + + + + Care Team Providers + +------+ + | Care Laundry Manager Name | Role | Phone | + [...] | | [address] | [place], [address] | | | | | [place], [place] | [place], [place] | | | | | [address] | [address] | | | | | [phone] | | | +--------+ + + + [...] | Visit | | DO Colin [address] [place] | | | | | | [address] | | | | | | [place], [place] | | | | | | [address] | | | | | | | [...]
--- OUTSIDE RECORDS SUMMARY | ~2018-08-07 | XMS | Clinical Summary ---
Demographics + + + | Address | [address] | | | [place] [address] | + + + | Home Phone | | + + + | Preferred Language | Unknown | + + + | Marital Status | Single | + + + | Baptist Affiliation | Unknown | + + + [...] Team Providers + +------+ + | Care Interface Developer Name | Role | Phone | + +------+ + | Tanvir Waters DO | PP | Unavailable | + +------+ + Source Comments [facility]OG[facility] is fully live on both [facility] and [facility] InPatient.[facility] Allergies + + + + + [...] kidney disease) stage 4, GFR 15-29 ml/min (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 | | GFR < 20 mL/min | + + + +---+ | Diabetes mellitus, type II ([facility]) | | + +---+ + [...] | re | [address] | [place] [address] | | | B | | | | | + +--------+ +--------+ + + | MEDICARE RENAL | MEDICA | xxxxxxxxxx | Agency | | RENAL DEPT [id number] | | RECIPIENT EVAL | RE | | | | [place] [address] | | | RENAL | | | | | | | RECIPI | | | | | | | ENT | | | | | | | EVAL | | | | | + +--------+ +--------+ + + | MODA MEDICARE | MODA | xxxxxxxxx | POS | [phone] | [address] [address] | | SUPPLEMENT | MEDICA | | | [address] | [place] [address] | | | RE | | | [...] | 1936 | +- | [place] [address] | | | heladio | | | [address] | | + +--------+ +--------+ + + | DALIA KAT | Specia | Self | [birth year] | Home: | [address] | | [place] | l | | 1936 | [phone]- | [place] [address] | | | [place] | | | [address] | | | | g | | | | | + +--------+ +--------+ + +
--- OUTSIDE RECORDS SUMMARY | ~2018-08-07 | XMS | Encounter Summary ---
Demographics + + + | Address | [address] | | | [place] [address] | + + + | Home Phone | | + + + | Preferred Language | Unknown | + + + | Marital Status | Single | + + + | Tenriism Affiliation | 1041 | + + + | Race | Unknown | + + + | Ethnic Group | Unknown | + + + Author + + + | Author | [facility] | | | and [place] | + + + | Organization | [facility] | | | and [...] [place] | | | | | [address] | | + + + + + Care Team Providers + +------+ + | Care Electronics Engineering Manager Name | Role | Phone | [...] | | [address] | [place], [address] | ([place]) (Primary | | | | [place], [place] | [place], [place] | Dx); Mixed | | | | [address] | [address] | hyperlipidemia; Type | | | | [phone] | | 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 | | | | | | disease, unspecified | | | | | | whether snf | | | | | | insulin [...] | Visit | | DO Colin [address] [place] | | | | | | [address] | | | | | | [place] | | | | | | [address] | | | | | | | [...]
--- OUTSIDE RECORDS SUMMARY | ~2018-08-07 | XMS | Encounter Summary ---
Demographics + + + | Address | [address] | | | [place] [address] | + + + | Home Phone | | + + + | Preferred Language | Unknown | + + + | Marital Status | Single | + + + | Yazidism Affiliation | 1041 | + + + | Race | Unknown | + + + | Ethnic Group | Unknown | + + + Author + + + | Author | [facility] | | | and [place] | + + + | Organization | [facility] | | [...] [place] | | | | | [address] | | + + + + + Care Team Providers + +------+ + | Care Wilton Weaver Name | Role | Phone | + [...] | | [address] | [place], [address] | ([place]) (Primary | | | | [place], [place] | [place], [place] | Dx); Mixed | | | | [address] | [address] | hyperlipidemia; Type | | | | [phone] | | 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 | | | | | | disease, unspecified | | | | | | whether care home | | | | | | insulin [...] | Visit | | DO [address] [place] | | | | | | [address] | | | | | | [place] | | | | | | [address] | | | | | | | [...]
--- OUTSIDE RECORDS SUMMARY | ~2018-08-07 | XMS | Encounter Summary ---
Demographics + + + | Address | [address] | | | [place] [address] | + + + | Home Phone | | + + + | Preferred Language | Unknown | + + + | Marital Status | Single | + + + | Baptism Affiliation | 1041 | + + + | Race | Unknown | + + + | Ethnic Group | Unknown | + + + Author + + + | Author | [facility] | | | and [place] | + + + | Organization | [facility] | | | and [...] [place] | | | | | [address] | | + + + + + Care Team Providers + +------+ + | Care Php Mysql Developer Name | Role | Phone | [...] | | [address] | [place], [address] | | | | | [place], [place] | [place], [place] | | | | | [address] | [address] | | | | | [phone] | | | +--------+ + + + [...] | Visit | | DO [address] [place] | | | | | | [address] | | | | | | [place], [place] | | | | | | [address] | | | | | | | [...]
--- OUTSIDE RECORDS SUMMARY | ~2018-08-07 | XMS | Clinical Summary ---
Demographics + + + | Address | [address] | | | [place] [address] | + + + | Home Phone [...] Team Providers + +------+ + | Care Key Filer Name | Role | Phone | + +------+ + | Tanvir Waters DO | PP | Unavailable | + +------+ + Source Comments [facility]OG[facility] is fully live on both [facility] and 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 | | GFR < 20 mL/min | + + + +---+ | Diabetes mellitus, type II ([facility]) | | + +---+ + + | [...] | re | [address] | [place] [address] | | | B | | | | | + +--------+ +--------+ + + | MEDICARE RENAL | MEDICA | xxxxxxxxxx | Agency | | RENAL DEPT [id number] | | RECIPIENT EVAL | RE | | | | [place] [address] | | | RENAL | | | | | | | RECIPI | | | | | | | ENT | | | | | | | EVAL | | | | | + +--------+ +--------+ + + | MODA MEDICARE | MODA | xxxxxxxxx | POS | [phone] | [address] [address] | | SUPPLEMENT | MEDICA | | | [address] | [place] [address] | | | RE | | | [...] | 1936 | +- | [place] [address] | | | [place]adio | | | [address] | | + +--------+ +--------+ + + | DALIA AKT | Specia | Self | [birth year] | Home: | [address] | | [place] | l | | 1936 | [address]- | [place] [address] | | | [place] | | | [address] | | | | g | | | | | + +--------+ +--------+ + +
--- OUTSIDE RECORDS SUMMARY | ~2018-08-07 | XMS | Encounter Summary ---
Demographics + + + | Address | [address] | | | [place] [address] | + + + | Home Phone | | + + + | Preferred Language | Unknown | + + + | Marital Status | Single | + + + | Scientology Affiliation | 1041 | + + + [...] [place] | | | | | [address] | | + + + + + Care Team Providers + +------+ + | Care Public Area Supervisor Name | Role | Phone | + [...] | | [address] | [place], [address] | | | | | [place], [place] | [place], [place] | | | | | [address] | [address] | | | | | [phone] | | | +--------+ + + + [...] | Visit | | DO Colin [address] [place] | | | | | | [address] | | | | | | [place], [place] | | | | | | [address] | | | | | | | [...]
--- OUTSIDE RECORDS SUMMARY | ~2018-08-07 | XMS | Encounter Summary ---
Demographics + + + | Address | [address] | | | [place] [address] | + + + | Home Phone | | + + + | Preferred Language | Unknown | + + + | Marital Status | Single | + + + | Evangelical Affiliation | 1041 | + + + | Race | Unknown | + + + | Ethnic Group | Unknown | + + + Author + + + | Author | [facility] | | | and [place] | + + + | Organization | [facility] | | | [...] [place] | | | | | [address] | | + + + + + Care Team Providers + +------+ + | Care Engineering Supplies Sales Name | Role | Phone | + [...] | | [address] | [place], [address] | ([place]) (Primary | | | | [place], [place] | [place], [place] | Dx); Mixed | | | | [address] | [address] | hyperlipidemia; Type | | | | [phone] | | 2 diabetes mellitus | | [...] | 2018 | Visit | | Colin, [address] [place] [address] | | | | | | [place] [address] | | | | | | [place] | | | | | | [address] | | | | | | | [...] unspecified whether | | | | | longterm insulin | | | | | use [...]
--- OUTSIDE RECORDS SUMMARY | ~2018-08-07 | XMS | Encounter Summary ---
Demographics + + + | Address | [address] | | | [place] [address] | + + + | Home Phone | | + + + | Preferred Language | Unknown | + + + | Marital Status | Single | + + + | Latter-Day Affiliation | 1041 | + + + [...] [place] | | | | | [address] | | + + + + + Care Team Providers + +------+ + | Care Women Nurse Name | Role | Phone | + [...] | | [address] | [place], [address] | ([place]) (Primary | | | | [place], [place] | [place], [place] | [place]x); Mixed | | | | [address] | [address] | hyperlipidemia; Type | | | | [phone] | | 2 diabetes mellitus | | [...] | 2018 | Visit | | Colin, [address] [place] [address] | | | | | | [place], [address] | | | | | | [place] | | | | | | [phone] | | | | | | | [...]
--- OUTSIDE RECORDS SUMMARY | ~2018-08-07 | XMS | Clinical Summary ---
Demographics + + + | Address | [address] | | | [place] [address] | + + + | Home Phone | | + + + | Preferred Language | Unknown | + + + | Marital Status | Single | + + + | Orthodox Affiliation | 1041 | + + + | Race | Unknown | + + + | Ethnic Group | Unknown | + + + Author + + + | Author | [facility] | | | and [place] | + + + | Organization | [facility] | | | [...] [place] | | | | | [address] | | + + + + + Care Team Providers + +------+ + | Care Watch Technician Name | Role | Phone | [...] | | | | | | (moderate) ([facility]), | | | | | | | | Anemia in chronic | | | | | | | | kidney | | | | | | | | disease(285.21), | | | | | | | | Diabetes mellitus, | | | | | | | | type 2 ([facility]), CHF | | | | | | | | (congestive heart | | | | | | | | failure) ([facility]), | | | | | | | [...] | Chronic kidney disease, stage III (moderate) ([facility]) | 02/28/20 | | | | 12 [...] | | | | | | whether customer services supervisor | | | | | | insulin [...] | | | | | | whether skilled nursing | | | | | | insulin [...] | | | | | | whether skilled nursing | | | | | | insulin [...] | Visit | | DO [address] | | | | | | [address] | | | | | | [place], [place] | | | | | | [address] | | | | | | | [...] + + | MEDICARE | MEDICA | [id number] | Medica | [phone] | | | RE | | re | [phone] | | | | PART A | | | | | | | AND B | | | | | + +--------+ +--------+ + + | MODA | MODA | [id number] | Indemn | [phone] | [address] [address] | | | HEALTH | | ity | [phone] | [place] [address] | | | MDCR | | | [...] [place] | al/Fam | | 1936 | [phone] | [address] | | | [place] | | | [phone] | [place] [address] | + +--------+ +--------+ + +
[~2018-08-07 11:50] MED LIST changes: -PARICALCITOL2 MCG PO; +PRAVACHOL20 MG PO; -PRAVASTATIN SOD40 MG PO; +ZEMPLAR1 MCG PO
--- OUTSIDE RECORDS SUMMARY | 2018-08-07 11:54 | XMS ---
PreManage Notification: [facility] Assistant Events 1 event(s) in the past 18 months Most recent security events: Elopement at [facility] 04/30/2017 20:32 - Patient eloped before treatment completed. Details: [facility] CRITERIA MET - Group Notification - PDMP CARE PROVIDERS MICKIE CUELLAR [facility] 02/26/2018-Current PHONE: Unknown Hardik Waters Current PHONE: Unknown Deshawn has no Care Guidelines for this patient. E.DMelvin VISIT COUNT (12 MO.) [address] [place] [address] TOTAL 3 NOTE: Visits indicate total known visits. ED/UCC VISIT TRACKING (12 MO.) 08/07/2018 11:51 [facility] [place] TYPE: Emergency COMPLAINT: - FLU SYMPTOMS 03/14/2018 12:17 [facility] [place] TYPE: Emergency COMPLAINT: - CONFUSION DIAGNOSES: - Type 2 diabetes mellitus without complications - Heart failure, unspecified - Other termite exterminator helper (current) drug therapy - Gastro-esophageal reflux disease without esophagitis - Anxiety disorder, unspecified - Disorientation, unspecified - Chronic kidney disease, unspecified - Urinary tract infection, site not specified - Hypertensive heart and chronic kidney disease with heart failure and stage 1 through stage 4 chronic kidney disease, or unspecified chronic kidney disease - Allergy status to sulfonamides status 02/25/2018 08:[address] [facility] [place] TYPE: Emergency COMPLAINT: - FOREIGN OBJECT R EAR/MSE TO HOME DIAGNOSES: - Foreign body in right ear, initial encounter INPATIENT VISIT TRACKING (12 MO.) No inpatient visits to display in this time frame [email or web address]
[2018-08-07] MEDS ORDERED: DEMADEX20 MG PO (12:00)
[2018-08-07] MEDS ORDERED: VITAMIN D31000 UNI1 PO (12:01)
[2018-08-07] MEDS ORDERED: ALPRAZOLAM ER3 MG PO (15:28)
--- NOTE | 2018-08-07 15:35 | NUR ---
New admit to the floor. Pt awake, alert and oriented x3. Pt denies sob and chest pain. Pt oriented to room and call light. Personal supplies and call light within reach. No needs at this time.
[2018-08-07] MEDS ORDERED: VENLAFAXINE HCL75 M1 PO (15:52)
--- NOTE | 2018-08-07 16:36 | NUR ---
Medications reconciled using pharmacy records and patient interview. Patient will be taking her own medication, paricalcitol, which is stored in patient's cubby in [email or web address] [place]
--- NOTE | 2018-08-07 17:35 | NUR ---
PT FORGETFUL AT TIMES. AC/HS BS CHECKS. TOLERATING 60G DIABETIC DIET. STANDBY ASSIST TO BR. LR @125ML/HR. RA. VOIDING Q/S.
--- NOTE | 2018-08-07 19:00 | NUR ---
RECIEVED REPORT FROM MAY DAVILA. PATIENT RESTING AWAKE IN BED. IV FLUIDS INFUSING PER JUL ORDER. BED ALARM ON FOR SAFETY. DINNER TRAY REMOVED FROM ROOM. CALL LIGHT WITHIN REACH. NO MORE NEEDS AT THIS TIME.
--- NOTE | 2018-08-07 20:50 | NUR ---
ASSESSMENT COMPLETE. MEDICATIONS ADMINISTERED PER MAR ORDER. PATIENT DENIES PAIN, CHEST PAIN, SOB OR DIFFICULTY BREATHING. PATIENT REPORTS FEELING SLIGHTLY BLOATED, ACTIVE BOWEL TONES PRESENT. CAPILLARY REFILL LESS THAN 2 SECONDS. IV FLUIDS INFUSING PER MAR ORDER. PATIENT REPORTS HAVING NONPRODUCTIVE COUGH. IV ASSESSED, WNL. SCHEDULED BREATHING TREATMENT PROVIDED PER ORDER. CALL LIGHT WITHIN REACH. NO MORE NEEDS AT THIS TIME.
--- NOTE | 2018-08-07 23:09 | NUR ---
AMBULATED WITH PATIENT ON THE HALLWAY X1
--- NOTE | 2018-08-07 23:31 | NUR ---
ROUNDED ON PATIENT IN ROOM WITH COMPLIANCE INVESTIGATOR. IV FLUID BAG REPLACED AND INFUSING PER MAR ORDER. PROVIDED EDUCATION ABOUT PLAN OF CARE WITH PATIENT. BED ALARM ON FOR SAFETY. CALL LIGHT WITHIN REACH. NO MORE NEEDS AT THIS TIME.
--- NOTE | 2018-08-08 01:41 | NUR ---
ASSESSMENT COMPLETE. PATIENT DENIES CHEST PAIN, PAIN, SOB OR DIFFICULTY BREATHING. IV FLUIDS INFUSING PER MAR ORDER. TEMPERATURE IN ROOM INCREASED TO 75 DEGREES PER PATIENT REQUEST. THERAPEUTIC MUSIC PLAYING, EYE MASK PROVIDED, AND WARM BLANKET PROVIDED TO PROMOTE THERAPEUTIC ENVIROMENT AND TO HELP PATIENT REST DUE TO PATIENT STATING SHE HASN'T BEEN ABLE TO SLEEP VERY WELL. WHILE PERFORMING ASSESSMENT, PATIENT EXHIBITIED SOME SCATTERED THROUGHTS, REORIENTED PATIENT TO DAY OF WEEK. CALL LIGHT WITHIN REACH. NO MORE NEEDS AT THIS TIME.
--- NOTE | 2018-08-08 03:02 | NUR ---
ROUNDED ON PATIENT RESTING IN BED WITH EYE MASK ON, RESPIRATORY RATE IS EVEN AND UNLABORED. CALL LIGHT WITHIN REACH. BED ALARM ON FOR SAFETY.
--- NOTE | 2018-08-08 04:41 | NUR ---
PATIENT AWAKE FOR FIRST HALF OF SHIFT AND SLEPT ON AND OFF THROUGHOUT THE REST OF SHIFT. ROOM AIR. SBA. 60 G CONSISTENT CARBOHYDRATE DIET. PT/OT. ACCU CHECKS WITH SS, NO COVERAGE NEEDED THIS SHIFT. IV FLUIDS INFUSING PER MAR ORDER. PATIENT FORGETFUL AT TIME. BED ALARM FOR SAFETY.
--- NOTE | 2018-08-08 05:39 | NUR ---
ROUNDED ON PATIENT LAYING AWAKE IN BED. LEATHER TOOLER IN ROOM OBTAINING VITALS. CALL LIGHT WITHIN REACH. NO MORE NEEDS AT THIS TIME.
--- NOTE | 2018-08-08 07:30 | NUR ---
PATIENT RESTING IN BED. PATIENT'S BREAKFAST ORDERED. CALL LIGHT WITHIN REACH. NO OTHER NEEDS AT THIS TIME
--- NOTE | 2018-08-08 07:35 | NUR ---
0700: Bedside report recieved from Bhumika DAVILA. Pt resting in her bed and she denies any new problems at this time. Call zamora within reach and other personal items.
--- NOTE | 2018-08-08 08:32 | NUR ---
PT RESTING AT THE BEDSIDE HAVING BREAKFAST AT THIS TIME. SHE DENIES ANY PAIN OR SOB AT THIS TIME. CALL KEEN WITHIN REACH.
--- NOTE | 2018-08-08 09:18 | NUR ---
PATIENT SITTING UP IN BED. VITAL SIGNS AND I&O DONE. ICE WATER GIVEN. CALL LIGHT WITHIN REACH. NO OTHER NEEDS AT THIS TIME
--- NOTE | 2018-08-08 09:46 | NUR ---
Pt resting in bed, call light in reach and bed alarm is on. PT denies any problems and states she is going to take a nap at this time.
--- NOTE | 2018-08-08 10:10 | NUR ---
Pt ambulated in the length of the gregory and back. She denies any SOB, CP or dizziness. She did state she felt "a little tired" and she stoped twice to rest durring the walk. Her sat was 98% on room air durring the walk and the highest her HR hit was 118. Pt now back to her room and is sitting in her chair.
--- NOTE | 2018-08-08 10:40 | NUR ---
A DISCUSSION WITH THE PT TOOK PLACE TO WHY SHE IS HERE AND SHE STATES SHE UNDERSTANDS BUT STATES SHE WOULD LIKE TO GO HOME TODAY. I INFORMED HER THAT THAT ORDER WOULD HAVE TO COME FROM HER PHYSICIAN WHICH SHE STATES SHE UNDERSTANDS. THE PT IS CURRENTLY ABLE TO ANSWER PERSON, PLACE AND TIME QUESTIONS CORRECLTY. SHE IS HOWEVER QUITE FORGETFUL AND BOUNCES FROM TOPIC TO TOPIC. CHARLES WAS INFORMED TO CALL BEFORE GETTING UP AND SHE STATES SHE HAS RECENTLY DID GET UP AND WALKED AROUND THE ROOM, HOWEVER THE BED ALARM WAS ON AND IT DID NOT GO OFF AND HER IV PUMP IS STILL PLUGGED IN. BED ALARM REMAINS ON AT THIS TIME.
--- NOTE | 2018-08-08 11:03 | NUR ---
PT SITTING IN BED, ALERT AND [place]. WE TALKED SHE SEEMED TO GET DISTRACTED EASILY AND CONFUSION SEEMED TO SET IN. AT ONE POINT SHE STATED THAT SHE FEELS SHE IS BEING LIED TO ABOUT HER CARE. SHE THEN BACKTRACKED SOME AND SAID THAT SHE JUST ISN'T BEING TOLD ANYTHING. I MENTIONED THIS TO HER RN FANI AND HE SAID THAT HE WOULD VISIT WITH PT. OFFERED TO HAVE RADIOLOGY DIRECTOR COME AND VISIT, SHE NEVER COULD GIVE ME AN ANSWER. EXTENDED A BLESSING, WILL FOLLOW NEEDED
--- NOTE | 2018-08-08 12:15 | NUR ---
PT STATES SHE HAS HIP PAIN RATED AT AN 8/10 AFTER HER WALK WITH PT. PT MEDICATED AT THIS TIME.
--- NOTE | 2018-08-08 12:46 | NUR ---
Pt now moved to the recliner and chair alarm turned on. Pt denies pain with movement.
--- NOTE | 2018-08-08 13:13 | NUR ---
PATIENT SITTING UP IN CHAIR. PATIENT GOES TO USE BATHROOM. PATIENT USES A WALKER. ONE PERSON ASSISTING. PATIENT BACKS TO BED. VITAL SIGNS AND I&O DONE. CALL LIGHT WITHIN REACH. NO OTHER NEEDS AT THIS TIME
--- NOTE | 2018-08-08 13:48 | NUR ---
PT DENIES PAIN AND APPEARS IN NO DISTRESS AT THIS TIME. BED ALARM IS ON AND CALL KEEN WITHIN REACH.
--- NOTE | 2018-08-08 16:02 | NUR ---
PT resting in bed with no complaints other than not wanting to be here. Bed alarm is on and call zamora is within reach.
--- NOTE | 2018-08-08 16:04 | NUR ---
PATIENT RESTING IN BED. PATIENT WAS ASKED ABOUT TAKING A SHOWER TODAY BUT SHE REFUSED. CALL LIGHT WITHIN REACH. BED ALARM ON. NO OTHER NEEDS AT THIS TIME
--- NOTE | 2018-08-08 18:05 | NUR ---
PATIENT RESTING IN BED. VITAL SIGNS AND I&O DONE. CALL LIGHT WITHIN REACH. NO OTHER NEEDS AT THIS TIME
--- NOTE | 2018-08-08 18:23 | NUR ---
Pt has attempted to get out of bed several times and forgets to call. Her bed alarm has gone off many times as she has attepted to get up, due to this the pt was moved to room 111 across from the nurses station and her alarm remains on.
--- NOTE | 2018-08-08 19:38 | NUR ---
REPORT RECEIVED, PT RESTING IN BED, EYES CLOSED, BREATHS EVEN, UNLABORED, IV FLUIDS INFUSING PER EMAR WNL, CALL LIGHT WITHIN REACH. FALL PRECAUTIONS IN PLACE.
--- NOTE | 2018-08-08 21:10 | NUR ---
IN ROOM TO ADMIN EVENING MEDS, PT AOX4, HOWEVER IS FORGETFUL, AND OCCASIONALLY CONFUSED, PT'S CBG 131, NO INSULIN COVERAGE INDICATED, PT RESTING IN BED, ASSESSMENT COMPLETE, NO C/O SOB/CP, NO C/O PAIN, PT DOES NOT USE CALL LIGHT APPROPRIATELY AND IS IMPULSIVE AT TIMES TO GET UP AND OUT OF BED, BED ALARM ON, PT AMBULATES WELL WITH 1 PERSON SBA/CANE. PT DENIES LIGHT HEADEDNESS OR DIZZINESS, CALL LIGHT WITHIN REACH. NO REQUESTS AT THIS TIME, FALL PRECAUTIONS IN PLACE, IV FLUIDS INFUSING PER EMAR WNL.
--- NOTE | 2018-08-08 23:00 | NUR ---
PT RESTING IN BED, NO REQUESTS AT THIS TIME, CALL LIGHT WITHIN REACH. IV FLUIDS INFUSING PER EMAR WNL.
--- NOTE | 2018-08-09 00:20 | NUR ---
HELPED PT TO THE BATHROOM AND BACK TO BED WITH HER FWW. BED ALARM SET. BEDSIDE TABLE AND CALL LIGHT IN REACH.
--- NOTE | 2018-08-09 00:30 | NUR ---
PT RESTING IN BED, EYES CLOSED, BREATHS EVEN, UNLABORED, NO REQUESTS AT THIS TIME, IV FLUIDS INFUSING PER EMAR WNL, CALL LIGHT WITHIN REACH.
--- NOTE | 2018-08-09 02:26 | NUR ---
PT RESTING IN BED, EYES CLOSED, BREATHS EVEN, UNLABORED, NO REQUESTS AT THIS TIME, IV FLUIDS INFUSING PER EMAR WNL. CALL LIGHT WITHIN REACH. BED ALARM ON.
--- NOTE | 2018-08-09 03:31 | NUR ---
PT RESTING IN BED, EYES CLOSED, BREATHS EVEN, UNLABORED, NO REQUESTS AT THIS TIME, IV FLUIDS INFUSING PER EMAR WNL, CALL LIGHT WITHIN REACH. FALL PRECAUTIONS IN PLACE. BED ALARM ON.
--- NOTE | 2018-08-09 03:49 | NUR ---
PT ASSISTED TO BATHROOM FROM BED, PT AOX4, SOME CONFUSION REMAINS, PT PLEASANT OVERALL, SHIFT ASSESSMENT COMPLETE. PT BACK TO BED, NO FURTHER REQUESTS AT THIS TIME, IV FLUIDS INFUSING PER EMAR WNL, CALLL IGHT WITHIN REACH, BED ALARM ON.
--- NOTE | 2018-08-09 05:10 | NUR ---
PT AOX4 THIS SHIFT HOWEVER IS CONFUSED AND FORGETFUL AND IS EASILY DISTRACTED AND EMOTIONAL AT TIMES, PT'S VSS, AFEBRILE, IMPULSIVE AT TIMES, BED ALARM ON THROUGHOUT NIGHT, IV FLUIDS INFUSED PER EMAR WNL. PT HAS HAD GOOD URINE OUTPUT, TOLERATES AMBULATION WELL WITH 1 PERSON SBA/CANE, PT HAS BEEN ABLE TO SLEEP ON AND OFF THIS SHIFT, NO C/O PAIN.
--- NOTE | 2018-08-09 06:16 | NUR ---
PT RESTING IN BED, EYES CLOSED, BREATHS EVEN, UNLABORED, NO REQUESTS AT THIS TIME, CALL LIGHT WITHIN REACH, FALL PRECAUTIONS IN PLACE. BED ALARM ON. IV FLUIDS INFUSING PER EMAR WNL.
--- NOTE | 2018-08-09 06:56 | NUR ---
HELPED PT TO THE BATHROOM AND BACK TO BED WITH HER FWW. BEDSIDE TABLE AND CALL LIGHT IN REACH. BED ALARM SET.
--- NOTE | 2018-08-09 07:30 | NUR ---
0710: Bedside report recieved from Bethel DAVILA. The pt just awoke and denies any problems. Call zamora within reach.
--- NOTE | 2018-08-09 08:30 | NUR ---
PATIENT IN BED. PATIENT TRANSFERRED TO CHAIR. PATIENT USES A CANE. ONE PERSON ASSITING. LINENS CHANGED. CALL LIGHT WITHIN REACH. CHAIR ALARM ON. NO OTHER NEEDS AT THIS TIME
--- NOTE | 2018-08-09 09:10 | NUR ---
Dr Latham to the room checking up on the pt. She states she is feeling "better". She denies feeling dizzy or lightheaded.
--- NOTE | 2018-08-09 09:54 | NUR ---
PATIENT RESTING IN BED. VITAL SIGNS AND I&O DONE. BED ALARM ON. CALL LIGHT WITHIN REACH. NO OTHER NEEDS AT THIS TIME
--- NOTE | 2018-08-09 10:59 | NUR ---
Pt sleeping at this time.
--- NOTE | 2018-08-09 11:31 | NUR ---
Pt recieved her discharge instuctions by myself and pharmacy both written and verbal. Pt states her ride home will not be here untill around 1400. Pt denies any problems at this time.
--- NOTE | 2018-08-09 13:23 | NUR ---
PATIENT SITTING UP IN CHAIR. VITAL SIGNS AND I&O DONE. CALL LIGHT WITHIN REACH. NO OTHER NEEDS AT THIS TIME
== END 2018-08-09 14:00 | disposition home or self-care (01) ==
LOC: ED 11:50 → MS 11:52
PROVIDERS: ADMIT Student in an Organized Health Care Education/Training Program
DX: N17.9 Acute kidney failure, unspecified (principal); E86.0 Dehydration; E87.6 Hypokalemia; E21.1 Secondary hyperparathyroidism, not elsewhere classified; E11.22 Type 2 diabetes mellitus with diabetic chronic kidney disease; I13.0 Hypertensive heart and chronic kidney disease with heart failure and stage 1 through stage 4 chronic kidney disease, or unspecified chronic kidney disease; N18.4 Chronic kidney disease, stage 4 (severe); I50.9 Heart failure, unspecified; E83.52 Hypercalcemia; E03.9 Hypothyroidism, unspecified; K21.9 Gastro-esophageal reflux disease without esophagitis; F41.9 Anxiety disorder, unspecified; F43.10 Post-traumatic stress disorder, unspecified; E78.5 Hyperlipidemia, unspecified; D47.2 Monoclonal gammopathy; Z87.891 Personal history of nicotine dependence; Z66 Do not resuscitate; Z79.4 Long term (current) use of insulin; Z79.899 Other long term (current) drug therapy; Z88.2 Allergy status to sulfonamides
CPT/HCPCS: 36415; 71046; 80048; 80053; 82310; 82565; 83690; 83735; 83880; 83970; 84132; 84520; 85025; 94640; 96360; 96361; 96372; 97162; 97165; 99285-25; G0378; J1650; J7030; J7040; J7120

== ENCOUNTER 2018-08-25 18:14 | Emergency (ER) | payer MEDICARE, OTHER, MEDICAID ==
[~2018-08-25] VITALS: Ht 162.6 cm; Wt 83.5 kg
--- OUTSIDE RECORDS SUMMARY | ~2018-08-25 | XMS | Encounter Summary ---
Demographics + + + | Address | [address] | | | [place] [address] | + + + | Home Phone | | + + + | Preferred Language | Unknown | + + + | Marital Status | Single | + + + | Amish Affiliation | 1041 | + + + | Race | Unknown | + + + | Ethnic Group | Unknown | + + + Author + + + | Author | [facility] | | | and [place] | + + + | Organization | [facility] | | | and [...] [place] | | | | | [address] | | + + + + + Care Team Providers + +------+ + | Care Supervisor Show Operations Name | Role | Phone | + +------+ + | Shaan Manzanares PCP | | | MD | | | + +------+ + Encounter Details +--------+ + + + + | Date | Type | Department | Care Team | Description | +--------+ + + + + | 06/20/ | Orders Only | [facility] [place] | Andre Pickett | CHRONIC KIDNEY | | 2019 | | NEPHROLOGY [address] | M, DO [address] | DISEASE STAGE IV | | | | [address] | [place] | ([place]) (Primary | | | | [place], [place] | [place], [place] | Dx); Mixed | | | | [address] | [id number] | hyperlipidemia; Type | | | | [phone] | | 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 | | | | | | disease, unspecified | | | | | | whether senior care | | | | | | insulin [...] on file | | + + + + + + + | Job Start Date | Occupation | Industry | + + + + | Not on file | Not on file | Not on file | + + + + + + + + | Travel History | Travel Start | Travel End | + + + + + + | No recent travel history available. | + + documented as of this encounter Functional Status + [...] | | | + + + + documented as of this encounter Plan of Treatment +--------+ + + + + | Date | Type | Specialty | Care Team | Description | +--------+ + + + + | 03/03/ | Off-Site | Nephrology | Andre Pickett | | | 2018 | Visit | | DO [address] | | | | | | [place] | | | | | | [place] | | | | | | [phone] | | | | | | | | +--------+ + + + + documented as of this encounter Visit Diagnoses + + | Diagnosis | + + | CHRONIC KIDNEY DISEASE STAGE IV ([place]) - Primary Chronic kidney disease, Stage IV | | (severe) | + + | Mixed hyperlipidemia | + + | Type 2 diabetes mellitus with stage 4 chronic kidney disease, unspecified whether long | | term insulin use (HCC) | + + documented in this encounter"
--- OUTSIDE RECORDS SUMMARY | ~2018-08-25 | XMS | Encounter Summary ---
Demographics + + + | Address | [address] | | | [place] [address] | + + + | Home Phone | | + + + | Preferred Language | Unknown | + + + | Marital Status | Single | + + + | Catholic Affiliation | 1041 | + + + | Race | Unknown | + + + | Ethnic Group | Unknown | + + + Author + + + | Author | [facility] | | | and [place] | + + + | Organization | [facility] | | | and [...] [place] | | | | | [address] | | + + + + + Care Team Providers + +------+ + | Care Sheet Pile Driver Operator Name | Role | Phone | [...] | | [address] | [place] | ([place]) (Primary | | | | [place], [place] | [place], [place] | Dx); Mixed | | | | [phone] | [address] | hyperlipidemia; Type | | | | [phone] | | 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 | | | | | | disease, unspecified | | | | | | whether shelter | | | | | | insulin [...] + + documented as of this encounter Progress Notes Lizbeth Negro RN - 06/03/2018 1626 PSTLabs for nephrology appt on 07/01/18 sent to [facility]. documented in this encou nter Plan of Treatment +--------+ + + + + | Date | Type | Specialty | Care Team | Description | +--------+ + + + + | 03/03/ | Off-Site | Nephrology | Andre Pickett | | | 2018 | Visit | | DO [address] | | | | | | [address] | | | | | | [place] | | | | | | [phone] | | | | | | | [...]
--- OUTSIDE RECORDS SUMMARY | ~2018-08-25 | XMS | Encounter Summary ---
Demographics + + + | Address | [address] | | | [place] [address] | + + + | Home Phone | | + + + | Preferred Language | Unknown | + + + | Marital Status | Single | + + + | Anabaptism Affiliation | 1041 | + + + | Race | Unknown | + + + | Ethnic Group | Unknown | + + + Author + + + | Author | [facility] | | | and [place] | + + + | Organization | [facility] | | | [...] [place] | | | | | [address] | | + + + + + Care Team Providers + +------+ + | Care Ent Physician Name | Role | Phone | + +------+ + | Shaan Manzanares PCP | | | MD | | | + +------+ + Encounter Details +--------+ + + + + | Date | Type | Department | Care Team | Description | +--------+ + + + + | 08/19/ | Abstract | [facility] [place] | Andre iPckett | | | 2019 | | NEPHROLOGY [address] | M, DO [address] | | | | | [address] | [place] | | | | | [place], [place] | [place], [place] | | | | | [address] | [address] | | | | | [phone] | | | +--------+ + + + + Social [...] Nephrology | Andre Pickett | | | 2019 | Visit | | DO [address] | | | | | | [place] | | | | | | [place] | | | | | | [address] | | | | | | | | +--------+ + + + + documented as of this encounter Procedures + +--------+ + + + | Procedure Name | Priori | Date/Time | Associated Diagnosis | Comments | | | ty | | | | + +--------+ + + + | EXTERNAL LAB: SODIUM | Routin | 08/16/2018 | | Results for this | | | e | | | procedure are in the | | | | | | results section. | + +--------+ + + + | EXTERNAL LAB: | Routin | 08/16/2018 | | Results for this | | TRIGLYCERIDES | e | | | procedure are in the | | | | | | results section. | + +--------+ + + + | EXTERNAL LAB: | Routin | 08/16/2018 | | Results for this | | CHOLESTEROL, HDL | e | | | procedure are in the | | | | | | results section. | + +--------+ + + + | EXTERNAL LAB: | Routin | 08/16/2018 | | Results for this | | CHOLESTEROL, TOTAL | e | | | procedure are in the | | | | | | results section. | + +--------+ + + + | EXTERNAL LAB: | Routin | 08/16/2018 | | Results for this | | CHOLESTEROL, LDL | e | | | procedure are in the | | | | | | results section. | + +--------+ + + + | HEMOGLOBIN A1C | Routin | 08/16/2018 | | Results for this | | | e | | | procedure are in the | | | | | | results section. | + +--------+ + + + documented in this encounter Results Hemoglobin A1C (08/16/2018) + +-------+ + + + | Component | Value | Ref Range | Performed | Pathologist | | | | | At | Signature | + +-------+ + + + | Hemoglobin | 5.7 | % | | | | A1c | | | | | + +-------+ + + + + + | Specimen | + + | Blood | + + External Lab: Sodium (08/16/2018) + +-------+ + + + | Component | Value | Ref Range | Performed | Pathologist | | | | | At | Signature | + +-------+ + + + | Sodium, | 142 | 132 - 143 | | | | External | | | | | + +-------+ + + + External Lab: Triglycerides (08/16/2018) + +-------+ + + + | Component | Value | Ref Range | Performed | Pathologist | | | | | At | Signature | + +-------+ + + + | Triglycerid | 124 | 30 - 150 | | | | es, | | | | | | External | | | | | + +-------+ + + + + + | Specimen | + + | Blood | + + External Lab: Cholesterol, HDL (08/16/2018) + +-------+ + + + | Component | Value | Ref Range | Performed | Pathologist | | | | | At | Signature | + +-------+ + + + | HDL | 46.3 | 40 mg/dl | | | | Cholesterol | | | | | | , External | | | | | + +-------+ + + + + + | Specimen | + + | Blood | + + External Lab: Cholesterol, Total (08/16/2018) + +-------+ + + + | Component | Value | Ref Range | Performed | Pathologist | | | | | At | Signature | + +-------+ + + + | Cholesterol | 144 | 200 mg/dl | | | | , Total, | | | | | | External | | | | | + +-------+ + + + + + | Specimen | + + | Blood | + + External Lab: Cholesterol, LDL (08/16/2018) + +-------+ + + + | Component | Value | Ref Range | Performed | Pathologist | | | | | At | Signature | + +-------+ + + + | LDL | 73 | 100 | | | | Cholesterol | | | | | | , External | | | | | + +-------+ + + + + + | Specimen | + + | Blood | + + documented in this encounter Visit Diagnoses Not on filedocumented in this encounter"
--- OUTSIDE RECORDS SUMMARY | ~2018-08-25 | XMS | Encounter Summary ---
Demographics + + + | Address | [address] | | | [place] [address] | + + + | Home Phone | | + + + | Preferred Language | Unknown | + + + | Marital Status | Single | + + + | Yarsani Affiliation | [id number] | + + + | Race | Unknown | + + + | Ethnic Group | Unknown | + + + Author + + + | Author | [facility] | | | and [place] | + + + | Organization | [facility] | | | [...] [place] | | | | | [address] | | + + + + + Care Team Providers + +------+ + | Care Geological Technician Name | Role | Phone | + +------+ + | Shaan Manzanares PCP | | | MD | | | + +------+ + Reason for Visit Follow Up (Routine) + +--------+ + + + + | Status | Reason | Specialty | Diagnoses / | Referred By | Referred To | | | | | Procedures | Contact | Contact | + +--------+ + + + + | Authorized | | Nephrology | Diagnoses | Jt, | Piyush, | | | | | Chronic | Tanvir E, | Andre M, DO | | | | | kidney | DO [address] | [address] | | | | | disease, | [address] | [place], [place] | | | | | stage 4 | [place], [place] | [address] | | | | | (severe) | [address] | [facility], [place] | | | | | (HCC) | Phone: | [phone] Phone: | | | | | Essential | [phone] | [phone] | | | | | hypertension | Fax: | Fax: | | | | | Anemia in | [phone] | [phone] | | | | | chronic | | | | | | | kidney | | | | | | | disease | | | | | | | Dysuria | | | | | | | Procedures | | | | | | | DC OFFICE | | | | | | | OUTPATIENT | | | | | | | VISIT 25 | | | | | | | MINUTES | | | + +--------+ + + + + Encounter Details +--------+ + + + + | Date | Type | Department | Care Team | Description | +--------+ + + + + | 08/19/ | Off-Site | [facility] | JakeAndre richardson | Mixed hyperlipidemia | | 2019 | Visit | NEPHROLOGY [address] | M, DO [address] | (Primary Dx); | | | | [address] | [place] | CHRONIC KIDNEY | | | | [place], [place] | [address] | DISEASE STAGE IV | | | | [address] | [address] | (SEVERE); Essential | | | | [phone] | | hypertension; Type 2 | | | | | | diabetes mellitus | | | | | | without | | | | | | complication, with | | | | | | long-term current | | | | | | use of insulin (HCC) | +--------+ + + + + [...] + + documented as of this encounter Last Filed Vital Signs + + + + | Vital Sign | Reading | Time Taken | + + + + | Blood Pressure | 162/60 | 08/19/20181532 PDT | + + + + | Pulse | - | - | + + + + | Temperature | 35.7 C (96.2 F) | 08/19/20181532 PDT | + + + + | Respiratory Rate | - | - | + + + + | Oxygen Saturation | - | - | + + + + | Inhaled Oxygen | - | - | | Concentration | | | + + + + | Weight | 79.5 kg (175 lb 4.3 | 08/19/20181532 PDT | | | oz) | | + + + + | Height | - | - | + + + + | Body Mass Index | 30.08 | 07/20/2014 1410 PST | + + + + documented in this encounter Functional Status + + + [...] documented as of this encounter Progress Notes Andre Pickett, - 08/19/2018 1500 PDTFormatting of this note might be different fro m the original. Subjective: NEPHROLOGY Patient ID: Dalia Anton is a 82 y.o. female. HPI : Followup for this pleasant, 82 YOWF with CKD suspicious for hypertensive nephroscler osis. She also has Type 2 DM, requiring insulin, a stable dilated cardiomyopathy, anemia se condary to CKD, hyperlipidemia, and SHPTH. She has previously had placement of a left arm AVF on 11/24/13, which has fully matured. She states that she was DC'd from [facility], [place], [place] on 08/16 after a stay for "dehydration. " Her lasix was held, but she cannot recall a great deal of other details, ad the DC record s are not currently available. She denies new edema, orthostatic sxs, hiccups or nausea. She does appear lucid, A&O x3, but slightly pale. Outpatient Prescriptions Marked as Taking for the 08/19/18 encounter (Off-Site Visit) with Mya Pickett, DO Medication Sig Dispense Refill albuterol (PROAIR HFA) 90 mcg/puff inhaler Inhale 2 puffs into the lungs every 6 hours as needed. ALPRAZolam (XANAX XR) 3 MG 24 hr tablet Take 1 tablet by mouth every morning. 0 amLODIPine (NORVASC) 5 mg tablet Take 2.5 mg by mouth Daily. ATROVENT HFA 17 MCG/ACT inhaler Inhale 2 puffs into the lungs Twice daily as needed. carvedilol (COREG) 25 mg tablet Take 25 mg by mouth 2 times daily. insulin aspart protamine-insulin aspart (NOVOLOG MIX 70/30 FLEXPEN) 100 units/mL inject ion Inject 10 Units under the skin 2 times daily (with breakfast & dinner). NITROSTAT 0.4 MG SL tablet paricalcitol (ZEMPLAR) 1 mcg capsule Take 2 capsules by mouth daily. Indications: secon blanco hyperparathyroidism 60 capsule 10 pravastatin (PRAVACHOL) 40 MG tablet Take 40 mg by mouth Daily. (Patient taking differe ntly: Take 20 mg by mouth Daily.) venlafaxine (EFFEXOR XR) 150 mg 24 hr capsule Take 150 mg by mouth Daily. total of 225 mg, daily. venlafaxine (EFFEXOR XR) 75 mg 24 hr capsule Take 75 mg by mouth. total of 225 mg, jennifer y. ALLERGIES: Allergies Allergen Reactions Codeine Sulfate Itching Oxycodone Itching Sulfa Antibiotics Rash Objective: BP 162/60 | Temp 35.7 C (96.2 F) | Wt 79.5 kg (175 lb 4.3 oz) | BMI 3 0.08 kg/m Physical Exam Heart: Regular rate and rhythm with grade 2/6 mid-DELROY at aortic area, no S3, or rub. Lungs: CTA in all [place]. No rales or wheezes. Abdomen: soft, obese, nontender, normoactive bowel sounds. Extremities: no edema, no clubbing, no cyanosis, AVF in LUE with (+) bruit. (+) pale skin. Lab Results Component Value Date NAEX 142 08/16/2018 KEX 3.7 08/16/2018 CLEX 105 08/16/2018 CO2EX 28 08/16/2018 BUNEX 26 08/16/2018 CREEX 2.77 08/16/2018 EGFREX 16 08/16/2018 GLUEX 133 08/16/2018 CAEX 9.3 08/16/2018 PHOSEX 3.5 06/20/2018 PTHEX 143 (A) 08/16/2018 ISU3IWS 5.7 08/16/2018 Lab Results Component Value Date CHOLEX 144 08/16/2018 HDLEX 46.3 08/16/2018 LDLEX 73 08/16/2018 TRIGEX 124 08/16/2018 Lab Results Component Value Date WBCEX 4.3 08/16/2018 HGBEX 10.7 08/16/2018 HCTEX 31.7 08/16/2018 PLTEX 197 08/16/2018 Lab Results Component Value Date CRCLEARANCE 26.0 (A) 06/20/2018 PROTEX 255 06/20/2018 Assessment: 1. CKD Stage 4, secondary to hypertensive nephrosclerosis-- eGFR is slightly improved. 2. Hypertension-- good control. 3. SHPTH-- good control. 4. Anemia secondary to CKD-- not yet requiring EPO. 5. Type II DM, requiring insulin-- good control. 6. Dilated cardiomyopathy-- compensated. 7. Hyperlipidemia--on statin Rx. 8. Gout-- stable. Plan: 1. Will attempt to obtain her DC records from [facility] from the recent stay. 2 I reviewed with Dalia her lab , HbA1c, GFR, and BP. Overall, she appears stable rela tive her prior comorbid conditions? 3. Her AVF is continuing to develop nicely, over time. 4. She may benefit from the ARB, losartain, which is currently on hold, in the future in lieu of the Amlodipine, for the renoprotective effect of the ARB? 5. Overall, she appears to be managing her risk factors as well as possible for the circum stances. 6. Will plan to see her back in 6 months at the [facility] at [place], [place]. She will have a CBC, CMP, PO4, HbA1c, iPTH, lipid profile, and 24 Hour Urine one week prior to that. : Shaan Cruz MD, FACS documented in this encounter Plan of Treatment +--------+ + + + + | Date | Type | Specialty | Care Team | Description | +--------+ + + + + | 03/03/ | Off-Site | Nephrology | Andre Pickett | | | 2018 | Visit | | DO [place] [address] | | | | | | [address] | | | | | | [place] | | | | | | [id number] | | | | | | | | +--------+ + + + + documented as of this encounter Procedures + +--------+ + + + | Procedure Name | Priori | Date/Time | Associated Diagnosis | Comments | | | ty | | | | + +--------+ + + + | EXTERNAL LAB: | Routin | 08/16/2018 | | Results for this | | HEMOGLOBIN A1C | e | | | procedure are in the | | | | | | results section. | + +--------+ + + + documented in this encounter Results External Lab: Hemoglobin A1c (08/16/2018) + +-------+ + + + | Component | Value | Ref Range | Performed | Pathologist | | | | | At | Signature | + +-------+ + + + | Hemoglobin | 5.7 | % | | | | A1c, | | | | | | external | | | | | + +-------+ + + + + + | Specimen | + + | Blood | + + documented in this encounter Visit Diagnoses + + | Diagnosis | + + | Mixed hyperlipidemia - Primary | + + | CHRONIC KIDNEY DISEASE STAGE IV (SEVERE) Chronic kidney disease, Stage IV (severe) | + + | Essential hypertension Unspecified essential hypertension | + + | Type 2 diabetes mellitus without complication, with long-term current use of insulin | | (HCC) | + + documented in this encounter
--- OUTSIDE RECORDS SUMMARY | ~2018-08-25 | XMS | Clinical Summary ---
Demographics + + + | Address | [id number] | | | [place] [address] | + + + | Home Phone | | + + + | Preferred Language | Unknown | + + + | Marital Status | Single | + + + | Church Affiliation | 1041 | + + + | Race | Unknown | + + + | Ethnic Group | Unknown | + + + Author + + + | Author | [facility] | | | and [place] | + + + | Organization | [facility] | | [...] [place] | | | | | [id number] | | + + + + + Care Team Providers + +------+ + | [facility] Director Name | Role | Phone | + [...] | + + + + + + Medications + + + +---------+------+------+-------+ | Medication | Sig | Dispensed | Refills | Star | End | Statu | | | | | | t | Date | s | | | | | | Date | | | + + + +---------+------+------+-------+ | carvedilol (COREG) | Take 25 mg by mouth | | 0 | 05/1 | | Activ | | 25 mg tablet | 2 times daily. | | | 8 | | e | | | | | | 12 | | | + + + +---------+------+------+-------+ | pravastatin | Take 40 mg by mouth | | 0 | 05/1 | | Activ | | (PRAVACHOL) 40 MG | Daily. | | | 01/07 | | e | | tablet | | | | 12 | | | + + + +---------+------+------+-------+ | furosemide (LASIX) | Take 40 mg by mouth | | 0 | 05/1 | | Activ | | 40 mg | 2 times daily. 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 | | 0 | | | Activ | | (EFFEXOR [...] | | | | | + + + +---------+------+------+-------+ | venlafaxine | Take 150 mg by mouth | | 0 | | | Activ | | (EFFEXOR [...] | | | | | + + + +---------+------+------+-------+ | ATROVENT HFA 17 | Inhale 2 puffs into | | 0 | 02/0 | | Activ | | MCG/ACT inhaler | the lungs Twice | | | 6/20 | | e | | | daily as needed. | | | 14 | | | + + + +---------+------+------+-------+ | albuterol (PROAIR | Inhale 2 puffs into | | 0 | 06/0 | | Activ | | HFA) 90 mcg/puff | the lungs every 6 | | | 4/20 | | e | | inhalerIndications: | [...] | | | | | + + + +---------+------+------+-------+ | NITROSTAT 0.4 MG | | | 0 | 10/2 | | Activ | | SL tablet | | | | 8/20 | | e | | | | | | 14 | | | + + + +---------+------+------+-------+ | amLODIPine | Take 2.5 mg by mouth | | 0 | 12/3 | | Activ | | (NORVASC) 5 mg | Daily. | | | 0/20 | | e | | tablet | | | | 14 | | | + + + +---------+------+------+-------+ | ALPRAZolam (XANAX | Take 1 tablet by | | 0 | 08/2 | | Activ | | XR) 3 MG 24 hr | mouth every morning. | | | 8 | | e | | tablet | | | | 17 | | | + + + +---------+------+------+-------+ | losartan (COZAAR) | Take 1 tablet [...] | | | | | + + + +---------+------+------+-------+ | paricalcitol | Take 2 capsules by [...] | | | | | + + + +---------+------+------+-------+ Active Problems + + + | Problem [...] + +---+ | CHF (congestive heart failure) | | + +---+ | Other and [...] | Chronic kidney disease, stage III (moderate) | 02/28/20 | | | | 12 | 5 | + + + + | Asthma | | | | | | 8 | + + + + Encounters +--------+ + + + + | Date | Type | Specialty | Care Team | Description | +--------+ + + + + | 08/19/ | Off-Site | | Andre Pickett | Mixed hyperlipidemia | | 2019 | Visit | | M, DO | (Primary Dx); | | | | | | CHRONIC KIDNEY | | | | | | DISEASE STAGE IV | | | | | | (SEVERE); Essential | | | | | | hypertension; Type 2 | | | | | | diabetes mellitus | | | | | | without | | | | | | complication, with | | | | | | long-term current | | | | | | use of insulin (HCC) | +--------+ + + + + | 08/19/ | Abstract | | Andre Pickett | | | 2018 | | | M, DO | | +--------+ + + + + | 08/19/ | Abstract | | Andre Pickett | | | 2018 | | | M, DO | | +--------+ + + + + | 08/15/ | Abstract | | Andre Pickett | [...] | | | | | | whether penitentiary | | | | | | insulin use (HCC) | +--------+ + + + + | 06/21/ | Abstract | | Andre Pickett | | | 2018 | | | M, DO | | +--------+ + + + + | 06/20/ | Orders Only | | Andre Pickett [...] | | | | | | whether longwall foreman | | | | | | insulin use (HCC) | +--------+ + + + + | 06/11/ | Abstract | | Andre Pickett | | | 2018 | | | M, DO | | +--------+ + + + + | 06/03/ | Orders Only | | Andre Pickett | CHRONIC KIDNEY | | 2019 | | | M, DO | DISEASE [...] | | | | | | whether penitentiary | | | | | | insulin [...] recent travel history available. | + + Last Filed Vital Signs + [...] + | Oxygen Saturation | 97% | 07/20/20141409 PST | + + + + | Inhaled Oxygen | - | - | | Concentration | | | + + + + | Weight | 79.5 kg (175 lb 4.3 | 08/19/2018 1533 PDT | | | oz) | | + + + + | Height | 162.6 cm (5' 4") | 07/20/20141409 PST | + + + + | Body Mass Index | 30.08 | 07/20/20141409 PST | + + + + Plan of Treatment +--------+ + + + + | Date | Type | Specialty | Care Team | Description | +--------+ + + + + | 03/03/ | Off-Site | | Andre Pickett | | | 2018 | Visit | | Colin [address] [place] [address] | | | | | | [place], [address] | | | | | | [place] | | | | | | [address] | | | | | | | [...] + + + | Vaccine: | | 08/23/2017, 02/21/2015 | | | Pneumococcal 65+ | 8 | | | | High/Highest Risk (2 | | | | | of 2 - PPSV23) | | | | + + + + + | Hemoglobin A1c | | 08/16/2018, 08/16/2018, | | | Screening | 9 | 08/16/2018, Additional history | | | | | exists | | + + + + + | Vaccine: Influenza | Completed | 01/13/2018, 01/17/2017, | | | | | 03/10/2016, Additional history | | | | | [...] +--------+ + + + | EXTERNAL LAB: JOVANA | Routin | 08/16/2018 | | Results for this | | INTACT | e | | | procedure are in the | | | | | | results section. | + +--------+ + + + | HEMOGLOBIN A1C | Routin | 08/16/2018 | | | | | e | | | | + +--------+ + + + | EXTERNAL LAB: CODY | Routin | 08/16/2018 | | Results for this | | | e | | | procedure are in the | | | | | | results section. | + +--------+ + + + | EXTERNAL LAB: Rosana Routin | 08/16/2018 | | Results for this | | GLUCOSE | e | | | procedure are in the | | | | | | results section. | + +--------+ + + + | EXTERNAL LAB: ALT | Routin | 08/16/2018 | | Results for this | | | e | | | procedure are in the | | | | | | results section. | + +--------+ + + + | EXTERNAL LAB: AST | Routin | 08/16/2018 | | Results for this | | | e | | | procedure are in the | | | | | | results section. | + +--------+ + + + | EXTERNAL LAB: | Routin | 08/16/2018 | | Results for this | | ALKALINE PHOSPHATASE | e | | | procedure are in the | | | | | | results section. | + +--------+ + + + | EXTERNAL LAB: | Routin | 08/16/2018 | | Results for this | | BILIRUBIN, TOTAL | e | | | procedure are in the | | | | | | results section. | + +--------+ + + + | EXTERNAL LAB: | Routin | 08/16/2018 | | Results for this | | ALBUMIN | e | | | procedure are in the | | | | | | results section. | + +--------+ + + + | EXTERNAL LAB: | Routin | 08/16/2018 | | Results for this | | PROTEIN, TOTAL | e | | | procedure are in the | | | | | | results section. | + +--------+ + + + | EXTERNAL LAB: | Routin | 08/16/2018 | | Results for this | | CALCIUM | e | | | procedure are in the | | | | | | results section. | + +--------+ + + + | EXTERNAL LAB: CARBON | Routin | 08/16/2018 | | Results for this | | DIOXIDE | e | | | procedure are in the | | | | | | results section. | + +--------+ + + + | EXTERNAL LAB: | Routin | 08/16/2018 | | Results for this | | CHLORIDE | e | | | procedure are in the | | | | | | results section. | + +--------+ + + + | EXTERNAL LAB: | Routin | 08/16/2018 | | Results for this | | POTASSIUM | e | | | procedure are in the | | | | | | results section. | + +--------+ + + + | EXTERNAL LAB: SODIUM | Routin | 08/16/2018 | | | | | e | | | | + +--------+ + + + | EXTERNAL LAB: | Routin | 08/16/2018 | | Results for this | | VITAMIN D, | e | | | procedure are in the | | 25-HYDROXY | | | | results section. | + +--------+ + + + | EXTERNAL LAB: CBC | Routin | 08/16/2018 | | Results for this | | | e | | | procedure are in the | | | | | | results section. | + +--------+ + + + | EXTERNAL LAB: | Routin | 08/16/2018 | | | | TRIGLYCERIDES | e | | | | + +--------+ + + + | EXTERNAL LAB: | Routin | 08/16/2018 | | | | CHOLESTEROL, HDL | e | | | | + +--------+ + + + | EXTERNAL LAB: | Routin | 08/16/2018 | | | | CHOLESTEROL, TOTAL | e | | | | + +--------+ + + + | EXTERNAL LAB: | Routin | 08/16/2018 | | | | CHOLESTEROL, LDL | e | | | | + +--------+ + + + | EXTERNAL LAB: EGFR | Routin | 08/16/2018 | | Results for this | | | e | | | procedure are in the | | | | | | results section. | + +--------+ + + + | EXTERNAL LAB: | Routin | 08/16/2018 | | Results for this | | CREATININE | e | | | procedure are [...] | EXTERNAL LAB: BUN | Routin | 08/09/2018 | | Results for this | | | e | | | procedure are in the | | | | | | results section. | + +--------+ + + + | EXTERNAL LAB: | Routin | 08/09/2018 | | Results for this | | CALCIUM | e | | | procedure are in the | | | | | | results section. | + +--------+ + + + | EXTERNAL LAB: | Routin | 08/09/2018 | | Results for this | | POTASSIUM | e | | | procedure are in the | | | | | | results section. | + +--------+ + + + | EXTERNAL LAB: EGFR | Routin | 08/09/2018 | | Results for this | | | e | | | procedure are in the | | | | | | results section. | + +--------+ + + + | EXTERNAL LAB: | Routin | 08/09/2018 | | Results for this | | CREATININE | e | | | procedure are in the | | | | | | results section. | + +--------+ + + + | EXTERNAL LAB: BUN | Routin | 08/08/2018 | | Results for this | | | e | | | procedure are in the | | | | | | results section. | + +--------+ + + + | EXTERNAL LAB: | Routin | 08/08/2018 | | Results for this | | GLUCOSE | e | | | procedure are in the | | | | | | results section. | + +--------+ + + + | EXTERNAL LAB: | Routin | 08/08/2018 | | Results for this | | CALCIUM | e | | | procedure are in the | | | | | | results section. | + +--------+ + + + | EXTERNAL LAB: CARBON | Routin | 08/08/2018 | | Results for this | | DIOXIDE | e | | | procedure are in the | | | | | | results section. | + +--------+ + + + | EXTERNAL LAB: | Routin | 08/08/2018 | | Results for this | | CHLORIDE | e | | | procedure are in the | | | | | | results section. | + +--------+ + + + | EXTERNAL LAB: | Routin | 08/08/2018 | | Results for this | | POTASSIUM | e | | | procedure are in the | | | | | | results section. | + +--------+ + + + | EXTERNAL LAB: SODIUM | Routin | 08/08/2018 | | Results for this | | | e | | | procedure are in the | | | | | | results section. | + +--------+ + + + | EXTERNAL LAB: EGFR | Routin | 08/08/2018 | | Results for this | | | e | | | procedure are in the | | | | | | results section. | + +--------+ + + + | EXTERNAL LAB: | Routin | 08/08/2018 | | Results for this | | CREATININE | e | | | procedure are in the | | | | | | results section. | + +--------+ + + + | EXTERNAL LAB: BUN | Routin | 08/07/2018 | | Results for this | | | e | | | procedure are in the | | | | | | results section. | + +--------+ + + + | EXTERNAL LAB: | Routin | 08/07/2018 | | Results for this | | GLUCOSE | e | | | procedure are in the | | | | | | results section. | + +--------+ + + + | EXTERNAL LAB: LIPASE | Routin | 08/07/2018 | | Results for this | | | e | | | procedure are in the | | | | | | results section. | + +--------+ + + + | EXTERNAL LAB: ALT | Routin | 08/07/2018 | | Results for this | | | e | | | procedure are in the | | | | | | results section. | + +--------+ + + + | EXTERNAL LAB: AST | Routin | 08/07/2018 | | Results for this | | | e | | | procedure are in the | | | | | | results section. | + +--------+ + + + | EXTERNAL LAB: | Routin | 08/07/2018 | | Results for this | | ALKALINE PHOSPHATASE | e | | | procedure are in the | | | | | | results section. | + +--------+ + + + | EXTERNAL LAB: | Routin | 08/07/2018 | | Results for this | | BILIRUBIN, TOTAL | e | | | procedure are in the | | | | | | results section. | + +--------+ + + + | EXTERNAL LAB: | Routin | 08/07/2018 | | Results for this | | ALBUMIN | e | | | procedure are in the | | | | | | results section. | + +--------+ + + + | EXTERNAL LAB: | Routin | 08/07/2018 | | Results for this | | PROTEIN, TOTAL | e | | | procedure are in the | | | | | | results section. | + +--------+ + + + | EXTERNAL LAB: CARBON | Routin | 08/07/2018 | | Results for this | | DIOXIDE | e | | | procedure are in the | | | | | | results section. | + +--------+ + + + | EXTERNAL LAB: CBC | Routin | 08/07/2018 | | Results for this | | | e | | | procedure are in the | | | | | | results section. | + +--------+ + + + | EXTERNAL LAB: Jayme MALAVE | Routin | 08/07/2018 | | Results for this | | NATURETIC PEPTIDE | e | | | procedure are in the | | | | | | results section. | + +--------+ + + + | EXTERNAL LAB: EGFR | Routin | 08/07/2018 | | Results for this | | | e | | | procedure are in the | | | | | | results section. | + +--------+ + + + | EXTERNAL LAB: | Routin | 08/07/2018 | | Results for this | | CREATININE | e | | | procedure are in the | | | | | | results section. | + +--------+ + + + | EXTERNAL LAB: | Routin | 08/07/2018 | | Results for this | | CHLORIDE | e | | | procedure are in the | | | | | | results section. | + +--------+ + + + | EXTERNAL LAB: | Routin | 08/07/2018 | | Results for this | | POTASSIUM | e | | | procedure are in the | | | | | | results section. | + +--------+ + + + | EXTERNAL LAB: MISAEL | Routin | 08/07/2018 | | Results for this | | | e | | | procedure are in the | | | | | | results section. | + +--------+ + + + | EXTERNAL LAB: JOVANA | Routin | 08/07/2018 | | Results for this | | INTACT | e | | | procedure are in the | | | | | | results section. | + +--------+ + + + | EXTERNAL LAB: | Routin | 08/07/2018 | | Results for this | | MAGNESIUM | e | | | procedure are in the | | | | | | results section. | + +--------+ + + + | EXTERNAL LAB: | Routin | 08/07/2018 | | Results for this | | CALCIUM | e | | | procedure are in the | | | | | | results section. | + +--------+ + + + | LABS - EXTERNAL SCAN | | 06/20/2018 | | Results for this | | | | 0:00 PST | | procedure are in the | | | | | | results section. | + +--------+ + + + | CREATININE | Routin | 06/20/2018 | | Results for this | | CLEARANCE, RESULT | e | | | procedure are [...] this | | GLUCOSE | e | | | procedure are [...] | | ALKALINE PHOSPHATASE | e | | | procedure are in the | | | | | | results section. | + +--------+ + + + | EXTERNAL LAB: | Routin | 06/20/2018 | | Results for this | | BILIRUBIN, TOTAL | e | | | procedure are in the | | | | | | results section. | + +--------+ + + + | EXTERNAL LAB: | Routin | 06/20/2018 | | Results for this | | ALBUMIN | e | | | procedure are in the | | | | | | results section. | + +--------+ + + + | EXTERNAL LAB: | Routin | 06/20/2018 | | Results for this | | PROTEIN, TOTAL | e | | | procedure are in the | | | | | | results section. | + +--------+ + + + | EXTERNAL LAB: | Routin | 06/20/2018 | | Results for this | | PHOSPHORUS | e | | | procedure are in the | | | | | | results section. | + +--------+ + + + | EXTERNAL LAB: | Routin | 06/20/2018 | | Results for this | | CALCIUM | e | | | procedure are in the | | | | | | results section. | + +--------+ + + + | EXTERNAL LAB: CARBON | Routin | 06/20/2018 | | Results for this | | DIOXIDE | e | | | procedure are in the | | | | | | results section. | + +--------+ + + + | EXTERNAL LAB: | Routin | 06/20/2018 | | Results for this | | CHLORIDE | e | | | procedure are in the | | | | | | results section. | + +--------+ + + + | EXTERNAL LAB: | Routin | 06/20/2018 | | Results for this | | POTASSIUM | e | | | procedure are [...] | | VITAMIN D, | e | | | procedure are in the | | 25-HYDROXY | | | | results section. | + +--------+ + + + | EXTERNAL LAB: | Routin | 06/20/2018 | | Results for this | | PROTEIN, URINE, 24HR | e | | | procedure are [...] this | | CREATININE | e | | | procedure are in the | | | | | | results section. | + +--------+ + + + | LABS - EXTERNAL SCAN | | 06/10/2018 | | Results for this | | | | 0:00 PST | | procedure are in the | | | | | | results section. | + +--------+ + + + | EXTERNAL LAB: | Routin | 06/10/2018 | | Results for this | | PROTEIN/CREATININE | e | | | procedure are in the | | RATIO | | | | results section. | + +--------+ + + + | EXTERNAL LAB: JOVANA | Routin | 06/10/2018 | | Results for this | | INTACT | e | | | procedure are in the | | | | | | results section. | + +--------+ + + + | HEMOGLOBIN A1C | Routin | 06/10/2018 | | Results for this | | | e | | | procedure are in the | | | | | | results section. | + +--------+ + + + | EXTERNAL LAB: CODY | Routin | 06/10/2018 | | Results for this | | | e | | | procedure are in the | | | | | | results section. | + +--------+ + + + | EXTERNAL LAB: | Routin | 06/10/2018 | | Results for this | | GLUCOSE | e | | | procedure are [...] | | ALKALINE PHOSPHATASE | e | | | procedure are in the | | | | | | results section. | + +--------+ + + + | EXTERNAL LAB: | Routin | 06/10/2018 | | Results for this | | BILIRUBIN, TOTAL | e | | | procedure are in the | | | | | | results section. | + +--------+ + + + | EXTERNAL LAB: | Routin | 06/10/2018 | | Results for this | | ALBUMIN | e | | | procedure are in the | | | | | | results section. | + +--------+ + + + | EXTERNAL LAB: | Routin | 06/10/2018 | | Results for this | | PROTEIN, TOTAL | e | | | procedure are in the | | | | | | results section. | + +--------+ + + + | EXTERNAL LAB: | Routin | 06/10/2018 | | Results for this | | PHOSPHORUS | e | | | procedure are in the | | | | | | results section. | + +--------+ + + + | EXTERNAL LAB: | Routin | 06/10/2018 | | Results for this | | CALCIUM | e | | | procedure are in the | | | | | | results section. | + +--------+ + + + | EXTERNAL LAB: CARBON | Routin | 06/10/2018 | | Results for this | | DIOXIDE | e | | | procedure are in the | | | | | | results section. | + +--------+ + + + | EXTERNAL LAB: | Routin | 06/10/2018 | | Results for this | | CHLORIDE | e | | | procedure are in the | | | | | | results section. | + +--------+ + + + | EXTERNAL LAB: | Routin | 06/10/2018 | | Results for this | | POTASSIUM | e | | | procedure are [...] | | VITAMIN D, | e | | | procedure are [...] this | | CREATININE | e | | | procedure are in the | | | | | | results section. | + +--------+ + + + from Last 3 Months Results External Lab: CODY (08/16/2018)Only the most recent of 6 results within the time period is i ncluded. + +-------+ + + + | Component | Value | Ref Range | Performed | Pathologist | | | | | At | Signature | + +-------+ + + + | BUN, | 26 | | EXTERNAL | | | External | | | LAB | | + +-------+ + + + + +---------+ + + | Performing | Address | City/State/Zipcode | Phone Number | | Organization | | | | + +---------+ + + | EXTERNAL LAB | | | | + +---------+ + + External Lab: Glucose (08/16/2018)Only the most recent of 5 results within the time period is included. + +-------+ + + + | Component | Value | Ref Range | Performed | Pathologist | | | | | At | Signature | + +-------+ + + + | Glucose, | 133 | | EXTERNAL | | | External | | | LAB | | + +-------+ + + + + +---------+ + + | Performing | Address | City/State/Zipcode | Phone Number | | Organization | | | | + +---------+ + + | EXTERNAL LAB | | | | + +---------+ + + External Lab: ALT (08/16/2018)Only the most recent of 4 results within the time period is i ncluded. + +-------+ + + + | Component | Value | Ref Range | Performed | Pathologist | | | | | At | Signature | + +-------+ + + + | ALT, | 17 | | EXTERNAL | | | External | | | LAB | | + +-------+ + + + + +---------+ + + | Performing | Address | City/State/Zipcode | Phone Number | | Organization | | | | + +---------+ + + | EXTERNAL LAB | | | | + +---------+ + + External Lab: AST (08/16/2018)Only the most recent of 4 results within the time period is i ncluded. + +-------+ + + + | Component | Value | Ref Range | Performed | Pathologist | | | | | At | Signature | + +-------+ + + + | AST, | 11 | | EXTERNAL | | | External | | | LAB | | + +-------+ + + + + +---------+ + + | Performing | Address | City/State/Zipcode | Phone Number | | Organization | | | | + +---------+ + + | EXTERNAL LAB | | | | + +---------+ + + External Lab: Alkaline Phosphatase (08/16/2018)Only the most recent of 4 results within the time period is included. + +-------+ + + + | Component | Value | Ref Range | Performed | Pathologist | | | | | At | Signature | + +-------+ + + + | ALP, | 39 | | EXTERNAL | | | External | | | LAB | | + +-------+ + + + + +---------+ + + | Performing | Address | City/State/Zipcode | Phone Number | | Organization | | | | + +---------+ + + | EXTERNAL LAB | | | | + +---------+ + + External Lab: Bilirubin, Total (08/16/2018)Only the most recent of 4 results within the period is included. + +-------+ + + + | Component | Value | Ref Range | Performed | Pathologist | | | | | At | Signature | + +-------+ + + + | Bilirubin, | 0.4 | | EXTERNAL | | | Total, | | | LAB | | | External | | | | | + +-------+ + + + + +---------+ + + | Performing | Address | City/State/Zipcode | Phone Number | | Organization | | | | + +---------+ + + | EXTERNAL LAB | | | | + +---------+ + + External Lab: Albumin (08/16/2018)Only the most recent of 4 results within the time period is included. + +-------+ + + + | Component | Value | Ref Range | Performed | Pathologist | | | | | At | Signature | + +-------+ + + + | Albumin, | 3.9 | | EXTERNAL | | | External | | | LAB | | + +-------+ + + + + +---------+ + + | Performing | Address | City/State/Zipcode | Phone Number | | Organization | | | | + +---------+ + + | EXTERNAL LAB | | | | + +---------+ + + External Lab: Protein, Total (08/16/2018)Only the most recent of 4 results within the time period is included. + +-------+ + + + | Component | Value | Ref Range | Performed | Pathologist | | | | | At | Signature | + +-------+ + + + | Protein, | 5.9 | | EXTERNAL | | | Total, | | | LAB | | | External | | | | | + +-------+ + + + + +---------+ + + | Performing | Address | City/State/Zipcode | Phone Number | | Organization | | | | + +---------+ + + | EXTERNAL LAB | | | | + +---------+ + + External Lab: Calcium (08/16/2018)Only the most recent of 6 results within the time period is included. + +-------+ + + + | Component | Value | Ref Range | Performed | Pathologist | | | | | At | Signature | + +-------+ + + + | Calcium, | 9.3 | | EXTERNAL | | | External | | | LAB | | + +-------+ + + + + +---------+ + + | Performing | Address | City/State/Zipcode | Phone Number | | Organization | | | | + +---------+ + + | EXTERNAL LAB | | | | + +---------+ + + External Lab: Carbon Dioxide (08/16/2018)Only the most recent of 5 results within the time period is included. + +-------+ + + + | Component | Value | Ref Range | Performed | Pathologist | | | | | At | Signature | + +-------+ + + + | Carbon | 28 | | EXTERNAL | | | Dioxide, | | | LAB | | | External | | | | | + +-------+ + + + + +---------+ + + | Performing | Address | City/State/Zipcode | Phone Number | | Organization | | | | + +---------+ + + | EXTERNAL LAB | | | | + +---------+ + + External Lab: Chloride (08/16/2018)Only the most recent of 5 results within the time period is included. + +-------+ + + + | Component | Value | Ref Range | Performed | Pathologist | | | | | At | Signature | + +-------+ + + + | Chloride, | 105 | | EXTERNAL | | | External | | | LAB | | + +-------+ + + + + +---------+ + + | Performing | Address | City/State/Zipcode | Phone Number | | Organization | | | | + +---------+ + + | EXTERNAL LAB | | | | + +---------+ + + External Lab: Potassium (08/16/2018)Only the most recent of 6 results within the time perio d is included. + +-------+ + + + | Component | Value | Ref Range | Performed | Pathologist | | | | | At | Signature | + +-------+ + + + | Potassium, | 3.7 | | EXTERNAL | | | External | | | LAB | | + +-------+ + + + + +---------+ + + | Performing | Address | City/State/Zipcode | Phone Number | | Organization | | | | + +---------+ + + | EXTERNAL LAB | | | | + +---------+ + + External Lab: Sodium (08/16/2018)Only the most recent of 6 results within the time period i s included. + +-------+ + + + | Component | Value | Ref Range | Performed | Pathologist | | | | | At | Signature | + +-------+ + + + | Sodium, | | | EXTERNAL | | | External | | | LAB | | + +-------+ + + + + +---------+ + + | Performing | Address | City/State/Zipcode | Phone Number | | Organization | | | | + +---------+ + + | EXTERNAL LAB | | | | + +---------+ + + External Lab: Vitamin D, 25-Hydroxy (08/16/2018)Only the most recent of 3 results within e time period is included. + +-------+ + + + | Component | Value | Ref Range | Performed | Pathologist | | | | | At | Signature | + +-------+ + + + | Vitamin D, | 31 | | EXTERNAL | | | 25-Hydroxy, | | | LAB | | | External | | | | | + +-------+ + + + + + | Specimen | + + | Blood | + + + +---------+ + + | Performing | Address | City/State/Zipcode | Phone Number | | Organization | | | | + +---------+ + + | EXTERNAL LAB | | | | + +---------+ + + External Lab: PTH, Intact (08/16/2018)Only the most recent of 3 results within the time per iod is included. + +---------+ + + + | Component | Value | Ref Range | Performed | Pathologist | | | | | At | Signature | + +---------+ + + + | PTH Intact, | 143 (A) | 12 - 88 | | | | External | | | | | + +---------+ + + + + + | Specimen | + + | | + + External Lab: CBC (08/16/2018)Only the most recent of 4 results within the time period is i ncluded. + +-------+ + + + | Component | Value | Ref Range | Performed | Pathologist | | | | | At | Signature | + +-------+ + + + | WBC, | 4.3 | | EXTERNAL | | | External | | | LAB | | + +-------+ + + + | HGB, | 10.7 | | EXTERNAL | | | External | | | LAB | | + +-------+ + + + | HCT, | 31.7 | | EXTERNAL | | | External | | | LAB | | + +-------+ + + + | PLT, | 197 | | EXTERNAL | | | External | | | LAB | | + +-------+ + + + | RBC, | 3.21 | | EXTERNAL | | | External | | | LAB | | + +-------+ + + + | MCV, | 99 | | EXTERNAL | | | External | | | LAB | | + +-------+ + + + | RDW, | 15.6 | | EXTERNAL | | | External | | | LAB | | + +-------+ + + + + +---------+ + + | Performing | Address | City/State/Zipcode | Phone Number | | Organization | | | | + +---------+ + + | EXTERNAL LAB | | | | + +---------+ + + External Lab: Triglycerides (08/16/2018)Only the most recent of 4 results within the time nash fonseca is included. + +-------+ + + + | Component | Value | Ref Range | Performed | Pathologist | | | | | At | Signature | + +-------+ + + + | Triglycerid | | | EXTERNAL | | | es, | | | LAB | | | External | | | | | + +-------+ + + + + + | Specimen | + + | Blood | + + + +---------+ + + | Performing | Address | City/State/Zipcode | Phone Number | | Organization | | | | + +---------+ + + | EXTERNAL LAB | | | | + +---------+ + + External Lab: Cholesterol, HDL (08/16/2018)Only the most recent of 4 results within the is included. + +-------+ + + + | Component | Value | Ref Range | Performed | Pathologist | | | | | At | Signature | + +-------+ + + + | HDL | | mg/dl | EXTERNAL | | | Cholesterol | | | LAB | | | , External | | | | | + +-------+ + + + + + | Specimen | + + | Blood | + + + +---------+ + + | Performing | Address | City/State/Zipcode | Phone Number | | Organization | | | | + +---------+ + + | EXTERNAL LAB | | | | + +---------+ + + External Lab: Cholesterol, Total (08/16/2018)Only the most recent of 4 results within the period is included. + +-------+ + + + | Component | Value | Ref Range | Performed | Pathologist | | | | | At | Signature | + +-------+ + + + | Cholesterol | | mg/dl | EXTERNAL | | | , Total, | | | LAB | | | External | | | | | + +-------+ + + + + + | Specimen | + + | Blood | + + + +---------+ + + | Performing | Address | City/State/Zipcode | Phone Number | | Organization | | | | + +---------+ + + | EXTERNAL LAB | | | | + +---------+ + + External Lab: Cholesterol, LDL (08/16/2018)Only the most recent of 4 results within the is included. + +-------+ + + + | Component | Value | Ref Range | Performed | Pathologist | | | | | At | Signature | + +-------+ + + + | LDL | | | EXTERNAL | | | Cholesterol | | | LAB | | | , External | | | | | + +-------+ + + + + + | Specimen | + + | Blood | + + + +---------+ + + | Performing | Address | City/State/Zipcode | Phone Number | | Organization | | | | + +---------+ + + | EXTERNAL LAB | | | | + +---------+ + + External Lab: eGFR (08/16/2018)Only the most recent of 6 results within the time period is included. + +-------+ + + + | Component | Value | Ref Range | Performed | Pathologist | | | | | At | Signature | + +-------+ + + + | eGFR, | 16 | | EXTERNAL | | | External | | | LAB | | + +-------+ + + + + + | Specimen | + + | Blood | + + + +---------+ + + | Performing | Address | City/State/Zipcode | Phone Number | | Organization | | | | + +---------+ + + | EXTERNAL LAB | | | | + +---------+ + + External Lab: Creatinine (08/16/2018)Only the most recent of 6 results within the time karen od is included. + +-------+ + + + | Component | Value | Ref Range | Performed | Pathologist | | | | | At | Signature | + +-------+ + + + | Creatinine, | 2.77 | | EXTERNAL | | | External | | | LAB | | + +-------+ + + + + + | Specimen | + + | Blood | + + + +---------+ + + | Performing | Address | City/State/Zipcode | Phone Number | | Organization | | | | + +---------+ + + | EXTERNAL LAB | | | | + +---------+ + + External Lab: Hemoglobin A1c (08/16/2018) + +-------+ [...] + + | Blood | + + Hemoglobin A1C (08/16/2018)Only the most recent of 4 results within the time period is incl uded. + +-------+ + + + | Component | Value | Ref Range | Performed | Pathologist | | | | | At | Signature | + +-------+ + + + | Hemoglobin | | % | EXTERNAL | | | A1c | | | LAB | | + +-------+ + + + + + | Specimen | + + | Blood | + + + +---------+ + + | Performing | Address | City/State/Zipcode | Phone Number | | Organization | | | | + +---------+ + + | EXTERNAL LAB | | | | + +---------+ + + External Lab: Lipase (08/07/2018) + +-------+ + + + | Component | Value | Ref Range | Performed | Pathologist | | | | | At | Signature | + +-------+ + + + | Lipase, | 27 | | | | | External | | | | | + +-------+ + + + External Lab: Magnesium (08/07/2018) + +-------+ + + + | Component | Value | Ref Range | Performed | Pathologist | | | | | At | Signature | + +-------+ + + + | Magnesium, | 2.3 | | | | | External | | | | | + +-------+ + + + External Lab: B Type Naturetic Peptide (08/07/2018) + +-------+ + + + | Component | Value | Ref Range | Performed | Pathologist | | | | | At | Signature | + +-------+ + + + | B-Type | 301 | | | | | Naturetic | | | | | | Peptide, | | | | | | External | | | | | + +-------+ + + + + + | Specimen | + + | Blood | + + External Lab: Phosphorus (06/20/2018)Only the most recent of 2 results within the time karen od is included. + +-------+ + + + | Component | Value | Ref Range | Performed | Pathologist | | | | | At | Signature | + +-------+ + + + | Phosphorus, | 3.5 | 2.5 - 5 | EXTERNAL | | | External | | | LAB | | + +-------+ + + + + + | Resulting Agency Comment | + + | [facility] | + + + +---------+ + + | Performing | Address | City/State/Zipcode | Phone Number | | Organization | | | | + +---------+ + + | EXTERNAL LAB | | | | + +---------+ + + External Lab: Protein, Urine, 24Hr (06/20/2018) + +-------+ + + + | Component | Value | Ref Range | Performed | Pathologist | | | | | At | Signature | + +-------+ + + + | Protein, | 255 | | EXTERNAL | | | Urine 24Hr, | | | LAB | | | External | | | | | + +-------+ + + + + + | Specimen | + + | Urine | + + + + | Resulting Agency Comment | + + | [facility] | + + + +---------+ + + | Performing | Address | City/State/Zipcode | Phone Number | | Organization | | | | + +---------+ + + | EXTERNAL LAB | | | | + +---------+ + + LABS - EXTERNAL SCAN (06/20/2018 0:00 PST)Only the most recent of 2 results within the is included. + + + | Narrative | Performed At | + + + | Ordered by an | | | unspecified provider. | | + + + Creatinine Clearance, Result (06/20/2018) + + + + + + | Component | Value | Ref Range | Performed | Pathologist | | | | | At | Signature | + + + + + + | CREATININE | 26.0 (A) | 88.0 - 128.0 | | | | CLEARANCE | | mL/min | | | + + + + + + | 24H Urine | 2,550 (A) | 15 - 65 mL | | | | Volume | | | | | + + + + + + | PTH Intact, | 74.30 | | | | | External | | | | | + + + + + + + + | Specimen | + + | Urine | + + External Lab: Protein/Creatinine Ratio (06/10/2018) + +-------+ + + + | Component | Value | Ref Range | Performed | Pathologist | | | | | At | Signature | + +-------+ + + + | Protein/Cre | 0.178 | 0.2 | | | | atinine | | | | | | Ratio, | | | | | | External | | | | | + +-------+ + + + + + | Specimen | + + | | + + from Last 3 Months Insurance + +--------+ +--------+ + +--------+ | Payer | Benefi | Subscriber | Effect | Phone | Address | Type | | | t Plan | ID | marlee | | | | | | / | | Dates | | | | | | Group | | | | | | + +--------+ +--------+ + +--------+ | MEDICARE | MEDICA | [id number] | 11/19/19 | [phone] | | Medica | | | RE | | 03-Pre | 5 | | re | | | PART A | | sent | | | | | | AND B | | | | | | + +--------+ +--------+ + +--------+ | MODA | MODA | [id number] | 07/20/19 | [phone] | [address] | Indemn | | | HEALTH | | 08-Pre | [phone] | ity | | | MDCR | | sent | | [place], | | | | [place] | | | | [place] [address] | | + +--------+ +--------+ + +--------+ + +--------+ +--------+ + + | Guarantor Name | Accoun | Relation to | Date | Phone | Billing Address | | | t Type | Patient | of | | | | | | | | | | + +--------+ +--------+ + + | Dalia Anton | Person | Self [birth year] | [address] | | [place] | al/Fam | | 1936 | [phone] | [address] | | | [address] | | | [address] (Home) | [place] [address] | + +--------+ +--------+ + + Advance Directives Patient has advance care planning documents, and code status on file. For more information, please contact:[facility] [address] + + + + + | Code Status | Date | Date | Comments | | | Activated | Inactivated | | + + + + + | Full Code | 11/24/2013 | 11/24/2013 | | | | 13:17 | 17:50 | | + + + + + + + + +---+ | | | | | + + + +---+ | Full Code | 09/12/2013 | 09/12/2013 | | | | 9:32 | 17:33 | | + + + +---+
--- OUTSIDE RECORDS SUMMARY | ~2018-08-25 | XMS | Encounter Summary ---
Demographics + + + | Address | [address] | | | [place] [address] | + + + | Home Phone | | + + + | Preferred Language | Unknown | + + + | Marital Status | Single | + + + | Roman Catholic Affiliation | 1041 | + + + | Race | Unknown | + + + | Ethnic Group | Unknown | + + + Author + + + | Author | [facility] | | | and [place] | + + + | Organization | [facility] | | [...] [place] | | | | | [address] | | + + + + + Care Team Providers + +------+ + | Care Tile Sorter Name | Role | Phone | + +------+ + | Shaan Manzanares PCP | | | MD | | | + +------+ + Encounter Details +--------+ + + + + | Date | Type | Department | Care Team | Description | +--------+ + + + + | 08/15/ | Abstract | [facility] | Andre Pickett | | | 2018 | | NEPHROLOGY [address] | M, DO [address] | | | | | [address] | [place] | | | | | [place], [place] | [place], [place] | | | | | [phone] | [phone] | | | | | [phone] | | | +--------+ + + + [...] | Visit | | DO [address] | | | | | | [place] | | | | | | [place] | | | | | | [address] | | | | | | | | +--------+ + + + + documented as of this encounter Procedures + +--------+ + + + | Procedure Name | Priori | Date/Time | Associated Diagnosis | Comments | | | ty | | | | + +--------+ + + + | EXTERNAL LAB: CODY | Routin | 08/09/2018 | | Results [...] | EXTERNAL LAB: SODIUM | Routin | 08/07/2018 | | Results for this | | | e | | | procedure are in the | | | | | | results section. | + +--------+ + + + | EXTERNAL LAB: JOVANA, | Routin | 08/07/2018 | | Results for this | | INTACT | e | | | procedure are in the | | | | | | results section. | + +--------+ + + + | EXTERNAL LAB: CHEYENNE | Routin | 08/07/2018 | | Results [...] documented in this encounter Results External Lab: CODY (08/09/2018) + +-------+ + + + | Component | Value | Ref Range | Performed | Pathologist | | | | | At | Signature | + +-------+ + + + | CODY, | 33 | | | | | External | | | | | + +-------+ + + + External Lab: Calcium (08/09/2018) + +-------+ + + + | Component | Value | Ref Range | Performed | Pathologist | | | | | At | Signature | + +-------+ + + + | Calcium, | 10.1 | | | | | External | | | | | + +-------+ + + + External Lab: Potassium (08/09/2018) + +-------+ + + + | Component | Value | Ref Range | Performed | Pathologist | | | | | At | Signature | + +-------+ + + + | Potassium, | 3.6 | | | | | External | | | | | + +-------+ + + + External Lab: eGFR (08/09/2018) + +-------+ + + + | Component | Value | Ref Range | Performed | Pathologist | | | | | At | Signature | + +-------+ + + + | eGFR, | 18 | | | | | External | | | | | + +-------+ + + + + + | Specimen | + + | Blood | + + External Lab: Creatinine (08/09/2018) + +-------+ + + + | Component | Value | Ref Range | Performed | Pathologist | | | | | At | Signature | + +-------+ + + + | Creatinine, | 2.85 | | | | | External | | | | | + +-------+ + + + + + | Specimen | + + | Blood | + + External Lab: BUN (08/08/2018) + +-------+ + + + | Component | Value | Ref Range | Performed | Pathologist | | | | | At | Signature | + +-------+ + + + | BUN, | 33 | | | | | External | | | | | + +-------+ + + + External Lab: Glucose (08/08/2018) + +-------+ + + + | Component | Value | Ref Range | Performed | Pathologist | | | | | At | Signature | + +-------+ + + + | Glucose, | 114 | | | | | External | | | | | + +-------+ + + + External Lab: Calcium (08/08/2018) + +-------+ + + + | Component | Value | Ref Range | Performed | Pathologist | | | | | At | Signature | + +-------+ + + + | Calcium, | 10.7 | | | | | External | | | | | + +-------+ + + + External Lab: Carbon Dioxide (08/08/2018) + +-------+ + + + | Component | Value | Ref Range | Performed | Pathologist | | | | | At | Signature | + +-------+ + + + | Carbon | 28 | | | | | Dioxide, | | | | | | External | | | | | + +-------+ + + + External Lab: Chloride (08/08/2018) + +-------+ + + + | Component | Value | Ref Range | Performed | Pathologist | | | | | At | Signature | + +-------+ + + + | Chloride, | 103 | | | | | External | | | | | + +-------+ + + + External Lab: Potassium (08/08/2018) + +-------+ + + + | Component | Value | Ref Range | Performed | Pathologist | | | | | At | Signature | + +-------+ + + + | Potassium, | 3.4 | | | | | External | | | | | + +-------+ + + + External Lab: Sodium (08/08/2018) + +-------+ + + + | Component | Value | Ref Range | Performed | Pathologist | | | | | At | Signature | + +-------+ + + + | Sodium, | 137 | | | | | External | | | | | + +-------+ + + + External Lab: eGFR (08/08/2018) + +-------+ + + + | Component | Value | Ref Range | Performed | Pathologist | | | | | At | Signature | + +-------+ + + + | eGFR, | 16 | | | | | External | | | | | + +-------+ + + + + + | Specimen | + + | Blood | + + External Lab: Creatinine (08/08/2018) + +-------+ + + + | Component | Value | Ref Range | Performed | Pathologist | | | | | At | Signature | + +-------+ + + + | Creatinine, | 3.04 | | | | | External | | | | | + +-------+ + + + + + | Specimen | + + | Blood | + + External Lab: BUN (08/07/2018) + +-------+ + + + | Component | Value | Ref Range | Performed | Pathologist | | | | | At | Signature | + +-------+ + + + | BUN, | 36 | | | | | External | | | | | + +-------+ + + + External Lab: Glucose (08/07/2018) + +-------+ + + + | Component | Value | Ref Range | Performed | Pathologist | | | | | At | Signature | + +-------+ + + + | Glucose, | 112 | | | | | External | | | | | + +-------+ + + + External Lab: Lipase (08/07/2018) + +-------+ + + + | Component | Value | Ref Range | Performed | Pathologist | | | | | At | Signature | + +-------+ + + + | Lipase, | 27 | | | | | External | | | | | + +-------+ + + + External Lab: ALT (08/07/2018) + +-------+ + + + | Component | Value | Ref Range | Performed | Pathologist | | | | | At | Signature | + +-------+ + + + | ALT, | 9 | | | | | External | | | | | + +-------+ + + + External Lab: AST (08/07/2018) + +-------+ + + + | Component | Value | Ref Range | Performed | Pathologist | | | | | At | Signature | + +-------+ + + + | AST, | 13 | | | | | External | | | | | + +-------+ + + + External Lab: Alkaline Phosphatase (08/07/2018) + +-------+ + + + | Component | Value | Ref Range | Performed | Pathologist | | | | | At | Signature | + +-------+ + + + | ALP, | 35 | | | | | External | | | | | + +-------+ + + + External Lab: Bilirubin, Total (08/07/2018) + +-------+ + + + | Component | Value | Ref Range | Performed | Pathologist | | | | | At | Signature | + +-------+ + + + | Bilirubin, | 0.5 | | | | | Total, | | | | | | External | | | | | + +-------+ + + + External Lab: Albumin (08/07/2018) + +-------+ + + + | Component | Value | Ref Range | Performed | Pathologist | | | | | At | Signature | + +-------+ + + + | Albumin, | 4.2 | | | | | External | | | | | + +-------+ + + + External Lab: Protein, Total (08/07/2018) + +-------+ + + + | Component | Value | Ref Range | Performed | Pathologist | | | | | At | Signature | + +-------+ + + + | Protein, | 6.5 | | | | | Total, | | | | | | External | | | | | + +-------+ + + + External Lab: Carbon Dioxide (08/07/2018) + +-------+ + + + | Component | Value | Ref Range | Performed | Pathologist | | | | | At | Signature | + +-------+ + + + | Carbon | 30 | | | | | Dioxide, | | | | | | External | | | | | + +-------+ + + + External Lab: CHEYENNE (08/07/2018) + +-------+ + + + | Component | Value | Ref Range | Performed | Pathologist | | | | | At | Signature | + +-------+ + + + | WBC, | 4.5 | | | | | External | | | | | + +-------+ + + + | HGB, | 12.2 | | | | | External | | | | | + +-------+ + + + | HCT, | 35.6 | | | | | External | | | | | + +-------+ + + + | PLT, | 168 | | | | | External | | | | | + +-------+ + + + | RBC, | 3.69 | | | | | External | | | | | + +-------+ + + + | MCV, | 97 | | | | | External | | | | | + +-------+ + + + | RDW, | 15.2 | | | | | External | [...] | Blood | + + External Lab: eGFR (08/07/2018) + +-------+ + + + | Component | Value | Ref Range | Performed | Pathologist | | | | | At | Signature | + +-------+ + + + | eGFR, | 13 | | | | | External | | | | | + +-------+ + + + + + | Specimen | + + | Blood | + + External Lab: Creatinine (08/07/2018) + +-------+ + + + | Component | Value | Ref Range | Performed | Pathologist | | | | | At | Signature | + +-------+ + + + | Creatinine, | 3.38 | | | | | External | | | | | + +-------+ + + + + + | Specimen | + + | Blood | + + External Lab: Chloride (08/07/2018) + +-------+ + + + | Component | Value | Ref Range | Performed | Pathologist | | | | | At | Signature | + +-------+ + + + | Chloride, | 101 | | | | | External | | | | | + +-------+ + + + External Lab: Potassium (08/07/2018) + +-------+ + + + | Component | Value | Ref Range | Performed | Pathologist | | | | | At | Signature | + +-------+ + + + | Potassium, | 2.9 | | | | | External | | | | | + +-------+ + + + External Lab: Sodium (08/07/2018) + +-------+ + + + | Component | Value | Ref Range | Performed | Pathologist | | | | | At | Signature | + +-------+ + + + | Sodium, | 140 | | | | | External | | | | | + +-------+ + + + External Lab: PTH, Intact (08/07/2018) + +-------+ + + + | Component | Value | Ref Range | Performed | Pathologist | | | | | At | Signature | + +-------+ + + + | PTH Intact, | 27.02 | | | | | External | | | | | + +-------+ + + + + + | Specimen | + + | | + + External Lab: Magnesium (08/07/2018) + +-------+ + + + | Component | Value | Ref Range | Performed | Pathologist | | | | | At | Signature | + +-------+ + + + | Magnesium, | 2.3 | | | | | External | | | | | + +-------+ + + + External Lab: Calcium (08/07/2018) + +-------+ + + + | Component | Value | Ref Range | Performed | Pathologist | | | | | At | Signature | + +-------+ + + + | Calcium, | 12 | | | | | External | | | | | + +-------+ + + + documented in this encounter Visit Diagnoses Not on filedocumented in this encounter"
--- OUTSIDE RECORDS SUMMARY | ~2018-08-25 | XMS | Encounter Summary ---
Demographics + + + | Address | [address] | | | [place] [address] | + + + | Home Phone | | + + + | Preferred Language | Unknown | + + + | Marital Status | Single | + + + | Lutheran Affiliation | 1041 | + + + | Race | Unknown | + + + | Ethnic Group | Unknown | + + + Author + + + | Author | [facility] | | | and [place] | + + + | Organization | [facility] | | | [...] [place] | | | | | [address] | | + + + + + Care Team Providers + +------+ + | Care Refrigeration Service Inspector Name | Role | Phone | + [...] | | [address] | [place] | ([place]) (Primary | | | | [place], [place] | [place], [place] | Dx); 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 documented in this encou nter Plan of Treatment +--------+ + + + + | Date | Type | Specialty | Care Team | Description | +--------+ + + + + | 03/03/ | Off-Site | Nephrology | Andre Pickett | | | 2018 | Visit | | DO [address] | | | | | | [place] | | | | | | [place] | | | | | | [phone] | | | | | | | [...]
--- OUTSIDE RECORDS SUMMARY | ~2018-08-25 | XMS | Encounter Summary ---
Demographics + + + | Address | [address] | | | [place] [address] | + + + | Home Phone | | + + + | Preferred Language | Unknown | + + + | Marital Status | Single | + + + | Adventism Affiliation | 1041 | + + + | Race | Unknown | + + + | Ethnic Group | Unknown | + + + Author + + + | Author | [facility] | | | and [place] | + + + | Organization | [facility] | | | [...] [place] | | | | | [address] | | + + + + + Care Team Providers + +------+ + | Care Public Works Commissioner Name | Role | Phone | + +------+ + | Shaan Manzanares PCP | | | MD | | | + +------+ + Encounter Details +--------+ + + + + | Date | Type | Department | Care Team | Description | +--------+ + + + + | 07/17/ | Orders Only | [facility] | Andre Pickett | CHRONIC KIDNEY | | 2019 | | NEPHROLOGY [address] | M, DO [address] | DISEASE STAGE IV | | | | [address] | [address] | ([place]) (Primary | | | | [place], [place] | [place], [place] | Dx); Mixed | | | | [address] | [address] | hyperlipidemia; Type | | | | [phone] | | 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 | | | | | | disease, unspecified | | | | | | whether fdc | | | | | | insulin [...] documented as of this encounter Progress Notes Alejandra Rosales RN - 07/17/2018 1537 PSTLabs for upcoming nephrology appointment sent to: [facility] documented in this encounter Plan of Treatment +--------+ + + + + | Date | Type | Specialty | Care Team | Description | +--------+ + + + + | 03/03/ | Off-Site | Nephrology | Andre Pickett | | | 2018 | Visit | | DO [address] | | | | | | [address] | | | | | | [place] | | | | | | [id number] | | | | | | | | +--------+ + + + + + +--------+ + + | Name | Priori | Associated Diagnoses | Order Schedule | | | ty | | | + +--------+ + + | CBC with Differential | Routin | CHRONIC KIDNEY | 1 Occurrences | | | e | DISEASE STAGE IV | starting 07/17/2018 | | | | ([place]) | until 07/17/2019 | + +--------+ + + | Comprehensive Metabolic Panel | Routin | CHRONIC KIDNEY | 1 Occurrences | | | e | DISEASE STAGE IV | starting 07/17/2018 | | | | ([place]) | until 07/17/2019 | + +--------+ + + | Hemoglobin A1C | Routin | CHRONIC KIDNEY | 1 Occurrences | | | e | DISEASE STAGE IV | starting 07/17/2018 | | | | ([place]) Type 2 | until 07/17/2019 | | | | diabetes mellitus | | | | | with stage 4 chronic | | | | | kidney disease, | | | | | unspecified whether | | | | | fdc insulin | | | | | use ([facility]) | | + +--------+ + + | Parathyroid Hormone, Intact | Routin | CHRONIC KIDNEY | 1 Occurrences | | | e | DISEASE STAGE IV | starting 07/17/2018 | | | | ([place]) | until 07/17/2019 | + +--------+ + + | Vitamin D, Deficiency Screen | Routin | CHRONIC KIDNEY | 1 Occurrences | | (25-Hydroxy) | e | DISEASE STAGE IV | starting 07/17/2018 | | | | ([place]) | until 07/17/2019 | + +--------+ + + | Protein/Creatinine Ratio, Urine | Routin | CHRONIC KIDNEY | 1 Occurrences | | | e | DISEASE STAGE IV | starting 07/17/2018 | | | | ([place]) | until 07/17/2019 | + +--------+ + + | Lipid Panel | Routin | CHRONIC KIDNEY | 1 Occurrences | | | e | DISEASE STAGE IV | starting 07/17/2018 | | | | ([place]) Mixed | until 07/17/2019 | | | | hyperlipidemia | | + +--------+ + + documented as of this encounter [...]
--- OUTSIDE RECORDS SUMMARY | ~2018-08-25 | XMS | Clinical Summary ---
Demographics + + + | Address | [address] | | | [place] [address] | + + + | Home Phone | | + + + | Preferred Language | Unknown | + + + | Marital Status | Single | + + + | Yazidi Affiliation | Unknown | + + + | Race | White | + + + | Ethnic Group | Not or | + + + Author + + + | Author | [facility] | + + + | Organization | NON REVENUE LOCATIONS | + + + | Address | Unknown | + + + | Phone | Unavailable | + + + Support + + +---------+ + | Name | Relationship | Address | Phone | + + +---------+ + | SCHWAB ANNE | ECON | Unknown | Unavailable | + + +---------+ + Care Team Providers + +------+ + | Care Tumbler Machine Operator Name | Role | Phone | + +------+ + | Tanvir Waters DO | PP | Unavailable | + +------+ + Source Comments BOGDAN is fully live on both [facility] Ambulatory and [facility] InPatient.[facility] Allergies + + + + + + | Active Allergy | Reactions | Severity | Noted | Comments | | | | | Date | | + + + + + + | Sulfa (Sulfonamide | Pruritus | High | 09/07/19 | | | Antibiotics) | | | 11 | | + [...] | | | Activ | | 25 mg Oral Tablet | two times daily. | | | | | e | | | Administer with | | | | | | | | food.25 mg in AM and | | | | | | | | 12.5 mg in PM | | | | | | + + +-------+---------+------+------+-------+ | insulin glargine | Inject 20 Units | | | | | Activ | | (LANTUS) 100 unit/mL | under the skin | | | | | e | | Subcutaneous | (SUBC) once daily at | | | | | | | Solution | bedtime. | | | | | | + + +-------+---------+------+------+-------+ | albuterol (PROAIR | Inhale 2 Puffs every | | | 04/1 | | Activ | | HFA) 90 | six hours as | | | 9/20 | | e | | mcg/Actuation | needed. | | | 11 | | | | Inhalation HFA | | | | | | | | Aerosol Inhaler | | | | | | | + + +-------+---------+------+------+-------+ | venlafaxine XR | Take 150 mg by mouth | | | 04/1 | | Activ | | (EFFEXOR XR) 150 mg | once daily at | | | 9/20 | | e | | Oral Capsule, Ext | bedtime. | | | 11 | | | | Release 24 hr | | | | | | | + + +-------+---------+------+------+-------+ | venlafaxine XR | Take 75 mg by mouth | | | 04/1 | | Activ | | (EFFEXOR XR) 75 mg | once daily at | | | 9/20 | | e | | Oral Capsule, Ext | bedtime. | | | 11 | | | | Release 24 hr | | | | | | | + + +-------+---------+------+------+-------+ | cetirizine | Take 10 mg by mouth | | | | | Activ | | (ZYRTEC) 10 mg Oral | once daily. | | | | | e | | Tablet | | | | | | | + + +-------+---------+------+------+-------+ | Cholecalciferol, | Take by mouth. | | | | | Activ | | Vitamin D3, (VITAMIN | | | | | | e | | D-3) 1,000 unit | | | | | | | | Oral Tablet, | | | | | | | | Chewable | | | | | | | + + +-------+---------+------+------+-------+ | paricalcitol | Take 1 mcg by mouth | | | | | Activ | | (ZEMPLAR) 2 mcg Oral | once daily. | | | | | e | | Capsule | | | | | | | + + +-------+---------+------+------+-------+ | darbepoetin iza | Inject 60 mcg into | | | 08/19 | | Activ | | (ARANESP, | the vein (IV) every | | | 02/07 | | e | | POLYSORBATE,) 60 | thirty days. | | | 11 | | | | mcg/mL Injection | | | | | | | | Solution | | | | | | | + + +-------+---------+------+------+-------+ | furosemide 40 mg | Take 1 Tab by mouth | | | 08/ | | Activ | | Oral Tablet | every two days. | | | 4/20 | | e | | | | | | 11 | | | + + +-------+---------+------+------+-------+ | ALPRAZolam XR 2 mg | Take 1 Tab by mouth | | | 08/2 | | Activ | | Oral Tablet | once daily at | | | 4 | | e | | Extended Release 24 | bedtime. | | | 11 | | | | hr | | | | | | | + + +-------+---------+------+------+-------+ | lisinopril 20 mg | Take 1 Tab by mouth | | | 08/2 | | Activ | | Oral Tablet | once daily. | | | 09/07 | | e | | | | | | 11 | | | + + +-------+---------+------+------+-------+ Active Problems + + + | Problem | Noted Date | + + + | Hearing disorder | 01/11/2011 | + + + + + | Overview: Cannot hear from her left ear. Uses hearing aid in | | the right ear. | + + + +---+ | CKD (chronic kidney disease) stage 4, GFR 15-29 ml/min ([facility]) | | + +---+ + + | 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 | | GFR < 20 mL/min | + + + +---+ | Diabetes mellitus, type II ([facility]) | | + +---+ + + | Overview: Diabetes II since approximately 2004 | | taking insulin since approximately 2007 | | Last Hgb A1c approximately 7.0 | | Followed by her primary care physician. | | ICD10 | + + + +---+ | Essential hypertension | | + +---+ + + | Overview: Taking medications since approximately 2005. | | 07/11/12 Inactive Dx replaced with clinically equivalent record | + + + +---+ | Hyperlipidemia | | + +---+ + + | Overview: Taking a statin since approximately 2005 | + + + +---+ | Dilated cardiomyopathy (HCC) | | + +---+ + + | Overview: 11/10/10 echocardiogram: Normal left ventricular | | size, thickness and wall motion. LVEF = 55%Grade 1 LV diastolic | | dysfunction. Normal pulmonary pressure (27 mmHg) | + + + +---+ | Reactive airways dysfunction syndrome (HCC) | | + +---+ + + | Overview: 10/13/10 PFT's: DLCO 67% predicted. Spirometry and | | lung volumes otherwise > 90% predicted except FRC PL = 83 % and | | ERV (expiratory reserve volume) = 22%. Stopped smoking over 20 | | years ago. | + + + +---+ | GERD (gastroesophageal reflux disease) | | + +---+ + + | Overview: Takes omeprazole but does not have a history of | | significant heart burn. | + + + +---+ | DJD (degenerative joint disease) | | + +---+ + + | Overview: No longer has pain in her back. | + + + +---+ | Anxiety and depression | | + +---+ + + | Overview: Takes Effexor and alprazolam with a very good | | effect.Saw a psychiatrist initially but currently primary care | | physician prescribes these meds. | + + + +---+ | S/P breast lumpectomy | | + +---+ + + | Overview: Right breast lumpectomy approximately for benign | | disease 2004 | + + Social History + + + +--------+ + | Tobacco Use | Types | Packs/Day | Years | Date | | | | | Used | | + + + +--------+ + | Former Smoker | Cigarettes | 1 | 40 | Quit: 09/08/1995 | + + + +--------+ + + +---+---+---+ | Smokeless Tobacco: | | | | | Never Used | | | | + +---+---+---+ + + + | Sex Assigned at | Date Recorded | | | | + + + | Not on file | | + + + Last Filed Vital Signs + + + + | Vital Sign | Reading | Time Taken | + + + + | Blood Pressure | 150/82 | 01/11/2011 1:09 PM PDT | + + + + | Pulse | 97 | 01/11/2011 1:09 PM PDT | + + + + | Temperature | 36.2 C (97.1 F) | 01/11/2011 1:09 PM PDT | + + + + | Respiratory Rate | - | - | + + + + | Oxygen Saturation | 98% | 01/11/2011 1:09 PM PDT | + + + + | Inhaled Oxygen | - | - | | Concentration | | | + + + + | Weight | 89.2 kg (196 lb 9.6 | 01/11/2011 1:09 PM PDT | | | oz) | | + + + + | Height | 162.6 cm (5' 4") | 01/11/2011 1:09 PM PDT | + + + + | Body Mass Index | 33.75 | 01/11/2011 1:09 PM PDT | + + + + Plan of Treatment + + + + + | Health Maintenance | Due Date | Last Done | Comments | + + + + + | Pneumococcal (Adult) | | | | | (1 of 2 - PCV13) | 3 | | | + + + + + | Influenza (Flu) | | | | | vaccination (#1) | 8 | | | + + + + + Results Not on filefrom Last 3 Months Insurance + +--------+ +--------+ + + | Payer | Benefi | Subscriber | Type | Phone | Address | | | t Plan | ID | | | | | | / | | | | | | | Group | | | | | + +--------+ +--------+ + + | MEDICARE | MEDICA | xxxxxxxxxx | Medica | [phone] [address] | | | RE A & | | re | [phone] | [place] [address] | | | B | | | | | + +--------+ +--------+ + + | MEDICARE RENAL | MEDICA | xxxxxxxxxx | Agency | | RENAL DEPT [id number] | | RECIPIENT EVAL | [place] | | | | [place] [address] | | | RENAL | | | | | | | RECIPI | | | | | | | ENT | | | | | | | EVAL | | | | | + +--------+ +--------+ + + | MODA MEDICARE | MODA | xxxxxxxxx | POS | [phone] | [address] [address] | | SUPPLEMENT | MEDICA | | | [phone] | [place] [address] | | | RE | | | | | | | SUPPLE | | | | | | | MENT | | | | | + +--------+ [...] | Self [birth year] | Home: | [address] | | [place]ANKAR | al/Fam | | 1936 | +- | [place] [address] | | | heladio | | | [address] | | + +--------+ +--------+ + + | DALIA KAT | Specia | Self | [birth year] | Home: | [address] | | [place]AR | l | | 1936 | [phone] | [place] [address] | | | [place] | | | [address] | | | | g | | | | | + +--------+ +--------+ + +
--- OUTSIDE RECORDS SUMMARY | ~2018-08-25 | XMS | Encounter Summary ---
Demographics + + + | Address | [address] | | | [place] [address] | + + + | Home Phone | | + + + | Preferred Language | Unknown | + + + | Marital Status | Single | + + + | Congregational Affiliation | 1041 | + + + | Race | Unknown | + + + | Ethnic Group | Unknown | + + + Author + + + | Author | [facility] | | | and [place] | + + + | Organization | [facility] | | | [...] [place] | | | | | [address] | | + + + + + Care Team Providers + +------+ + | Care Front Desk Associate Name | Role | Phone | + [...] | | [address] | [address] | | | | | [place], [place] | [place], [place] | | | | | [address] | [address] | | | | | [phone] | | | +--------+ + + + [...] | Visit | | [address] | | | | | | [address] | | | | | | [place] | | | | | | [address] | | | | | | | [...]
--- OUTSIDE RECORDS SUMMARY | ~2018-08-25 | XMS | Encounter Summary ---
Demographics + + + | Address | [address] | | | [place] [address] | + + + | Home Phone | | + + + | Preferred Language | Unknown | + + + | Marital Status | Single | + + + | Mandaen Affiliation | 1041 | + + + | Race | Unknown | + + + | Ethnic Group | Unknown | + + + Author + + + | Author | [facility] | | | and [place] | + + + | Organization | [facility] | | | [...] [place] | | | | | [address] | | + + + + + Care Team Providers + +------+ + | Care Catering Chef Name | Role | Phone | + [...] | | [address] | [place] | | | | | [place], [place] | [place], [place] | | | | | [address] | [address] | | | | | [phone] | | | +--------+ + + + [...] | Visit | | DO [address] | | | | | | [address] | | | | | | [place] | | | | | | [address] | | | | | | | [...] | EXTERNAL LAB: PTH, | Routin | 08/16/2018 | | Results [...] | | + +--------+ + + + documented in this encounter Results External Lab: PTH, Intact (08/16/2018) + +---------+ + + + | Component [...] | + + | | + + Hemoglobin A1C (08/16/2018) + +-------+ + + [...] | + +---------+ + + External Lab: BUN (08/16/2018) + +-------+ + + + | [...] + +---------+ + + External Lab: Glucose (08/16/2018) + +-------+ + + + | [...] + +---------+ + + External Lab: ALT (08/16/2018) + +-------+ + + + | [...] + +---------+ + + External Lab: AST (08/16/2018) + +-------+ + + + | [...] +---------+ + + External Lab: Alkaline Phosphatase (08/16/2018) + +-------+ + + + | [...] +---------+ + + External Lab: Bilirubin, Total (08/16/2018) + +-------+ + + + [...] + +---------+ + + External Lab: Albumin (08/16/2018) + +-------+ + + + | [...] +---------+ + + External Lab: Protein, Total (08/16/2018) + +-------+ + + + [...] + +---------+ + + External Lab: Calcium (08/16/2018) + +-------+ + + + | [...] +---------+ + + External Lab: Carbon Dioxide (08/16/2018) + +-------+ + + + | [...] + +---------+ + + External Lab: Chloride (08/16/2018) + +-------+ + + + | [...] + +---------+ + + External Lab: Potassium (08/16/2018) + +-------+ + + + | [...] + +---------+ + + External Lab: Sodium (08/16/2018) + [...] + + External Lab: Vitamin D, 25-Hydroxy (08/16/2018) + +-------+ + + + | [...] + +---------+ + + External Lab: CBC (08/16/2018) + +-------+ + + + | [...] + +---------+ + + External Lab: Triglycerides (08/16/2018) + [...] +---------+ + + External Lab: Cholesterol, HDL (08/16/2018) [...] +---------+ + + External Lab: Cholesterol, Total (08/16/2018) [...] +---------+ + + External Lab: Cholesterol, LDL (08/16/2018) [...] + +---------+ + + External Lab: eGFR (08/16/2018) + +-------+ + + + | [...] + +---------+ + + External Lab: Creatinine (08/16/2018) + +-------+ + + + | [...] | | | + +---------+ + + documented in this encounter Visit Diagnoses Not on filedocumented in this encounter"
--- OUTSIDE RECORDS SUMMARY | ~2018-08-25 | XMS | Clinical Summary ---
Demographics + + + | Address | [address] | | | [place] [address] | + + + | Home Phone | | + + + | Preferred Language | Unknown | + + + | Marital Status | Single | + + + | Tenriism Affiliation | Unknown | + + + | Race | Unknown | + + + | Ethnic Group | Unknown | + + + Author + + + | Author | [facility] | + + + | Organization | [facility] | + + + | Address | Unknown | + + + | Phone | Unavailable | + + + Support + + + + + | Name | Relationship | Address | Phone | + + + + + | Brissa Corrales | ECON | [address] | | | | | [place] | | | | | [address] | | + + + + + Care Team Providers + +------+ + | Care Day Ha[employer] Charter Bus Driver Name | Role | Phone | + [...] +------+-------+ + | MEDICARE | MEDICA | [id number] | | | [address] | | | RE | | | | [place] [address] | | | IP-OP | | | | | + +--------+ +------+-------+ + | [employer]AN | ODS | [id number] | | | | | | HEALTH [...] maninder/Jorge | | 1936 | [phone] | [place] | | | [place] | | | [phone] | [phone] | + +--------+ +--------+ + +
--- OUTSIDE RECORDS SUMMARY | ~2018-08-25 | XMS | Encounter Summary ---
Demographics + + + | Address | [address] | | | [place] [address] | + + + | Home Phone | | + + + | Preferred Language | Unknown | + + + | Marital Status | Single | + + + | Jain Affiliation | 1041 | + + + | Race | Unknown | + + + | Ethnic Group | Unknown | + + + Author + + + | Author | [facility] | | | and [place] | + + + | Organization | [facility] | | [...] [place] | | | | | [address] | | + + + + + Care Team Providers + +------+ + | Care Belt Splicer Name | Role | Phone | + [...] | | [address] | [place] | | | | | [place], [place] | [place], [place] | | | | | [address] | [address] | | | | | [phone] | | | +--------+ + + + [...] | Visit | | DO [address] | | | | | | [place], [address] | | | | | | [place] | | | | | | [address] | | | | | | | [...] documented in this encounter Results External Lab: Protein/Creatinine [...] + | | + + External Lab: PTH, Intact (06/10/2018) + +-------+ + + + | Component | Value | Ref Range | Performed | Pathologist | | | | | At | Signature | + +-------+ + + + | PTH Intact, | 80.51 | 12 - 88 | | | | External | | | | | + +-------+ + + + + + | Specimen | + + | | + + Hemoglobin A1C (06/10/2018) + +-------+ + + + | Component | Value | Ref Range | Performed | Pathologist | | | | | At | Signature | + +-------+ + + + | Hemoglobin | 6.2 | % | EXTERNAL | | | [...] Lab: CODY (06/10/2018) + +-------+ + + + | Component | Value | Ref Range | Performed | Pathologist | | | | | At | Signature | + +-------+ + + + | CODY, | 31 | | EXTERNAL | | | External | | | LAB | | + +-------+ + + + + +---------+ + + | Performing | Address | City/State/Zipcode | Phone Number | | Organization | | | | + +---------+ + + | EXTERNAL LAB | | | | + +---------+ + + External Lab: Glucose (06/10/2018) + +-------+ + + + | Component | Value | Ref Range | Performed | Pathologist | | | | | At | Signature | + +-------+ + + + | Glucose, | 177 | | EXTERNAL | | | External | | | LAB | | + +-------+ + + + + +---------+ + + | Performing | Address | City/State/Zipcode | Phone Number | | Organization | | | | + +---------+ + + | EXTERNAL LAB | | | | + +---------+ + + External Lab: ALT (06/10/2018) + +-------+ + + + | Component | Value | Ref Range | Performed | Pathologist | | | | | At | Signature | + +-------+ + + + | ALT, | 9 | | EXTERNAL | | | External | | | LAB | | + +-------+ + + + + +---------+ + + | Performing | Address | City/State/Zipcode | Phone Number | | Organization | | | | + +---------+ + + | EXTERNAL LAB | | | | + +---------+ + + External Lab: AST (06/10/2018) + +-------+ + + + | [...] Alkaline Phosphatase (06/10/2018) + +-------+ + + + | Component | Value | Ref Range | Performed | Pathologist | | | | | At | Signature | + +-------+ + + + | ALP, | 65 | | EXTERNAL | | | External | | | LAB | | + +-------+ + + + + +---------+ + + | Performing | Address | City/State/Zipcode | Phone Number | | Organization | | | | + +---------+ + + | EXTERNAL LAB | | | | + +---------+ + + External Lab: Bilirubin, Total (06/10/2018) + +-------+ + + + | Component | Value | Ref Range | Performed | Pathologist | | | | | At | Signature | + +-------+ + + + | Bilirubin, | 0.5 | | EXTERNAL | | | Total, [...] Lab: Albumin (06/10/2018) + +-------+ + + + | [...] Protein, Total (06/10/2018) + +-------+ + + + | Component | Value | Ref Range | Performed | Pathologist | | | | | At | Signature | + +-------+ + + + | Protein, | 6.3 | | EXTERNAL | | | Total, [...] Lab: Phosphorus (06/10/2018) + +-------+ + + + | Component | Value | Ref Range | Performed | Pathologist | | | | | At | Signature | + +-------+ + + + | Phosphorus, | 4.1 | | EXTERNAL | | | External | | | LAB | | + +-------+ + + + + +---------+ + + | Performing | Address | City/State/Zipcode | Phone Number | | Organization | | | | + +---------+ + + | EXTERNAL LAB | | | | + +---------+ + + External Lab: Calcium (06/10/2018) + +-------+ + + + | Component | Value | Ref Range | Performed | Pathologist | | | | | At | Signature | + +-------+ + + + | Calcium, | 9.2 | | EXTERNAL | | | External | | | LAB | | + +-------+ + + + + +---------+ + + | Performing | Address | City/State/Zipcode | Phone Number | | Organization | | | | + +---------+ + + | EXTERNAL LAB | | | | + +---------+ + + External Lab: Carbon Dioxide (06/10/2018) + +-------+ + + + | Component | Value | Ref Range | Performed | Pathologist | | | | | At | Signature | + +-------+ + + + | Carbon | 26 | | EXTERNAL | | | Dioxide, [...] Lab: Chloride (06/10/2018) + +-------+ + + + | Component | Value | Ref Range | Performed | Pathologist | | | | | At | Signature | + +-------+ + + + | Chloride, | 103 | | EXTERNAL | | | External | | | LAB | | + +-------+ + + + + +---------+ + + | Performing | Address | City/State/Zipcode | Phone Number | | Organization | | | | + +---------+ + + | EXTERNAL LAB | | | | + +---------+ + + External Lab: Potassium (06/10/2018) + +-------+ + + + | [...] Lab: Sodium (06/10/2018) + +-------+ + + + | Component | Value | Ref Range | Performed | Pathologist | | | | | At | Signature | + +-------+ + + + | Sodium, | 143 | | EXTERNAL | | | External | | | LAB | | + +-------+ + + + + +---------+ + + | Performing | Address | City/State/Zipcode | Phone Number | | Organization | | | | + +---------+ + + | EXTERNAL LAB | | | | + +---------+ + + External Lab: Vitamin D, 25-Hydroxy (06/10/2018) + +-------+ + + + | Component | Value | Ref Range | Performed | Pathologist | | | | | At | Signature | + +-------+ + + + | Vitamin D, | 24 | | EXTERNAL | | | 25-Hydroxy, [...] Lab: CBC (06/10/2018) + +-------+ + + + | Component | Value | Ref Range | Performed | Pathologist | | | | | At | Signature | + +-------+ + + + | WBC, | 5.0 | | EXTERNAL | | | External | | | LAB | | + +-------+ + + + | HGB, | 12.4 | | EXTERNAL | | | External | | | LAB | | + +-------+ + + + | HCT, | 37.3 | | EXTERNAL | | | External | | | LAB | | + +-------+ + + + | PLT, | 185 | | EXTERNAL | | | External | | | LAB | | + +-------+ + + + | RBC, | 3.78 | | EXTERNAL | | | External | | | LAB | | + +-------+ + + + | MCV, | 99 | | EXTERNAL | | | External | | | LAB | | + +-------+ + + + | RDW, | 16.3 | | EXTERNAL | | | External | | | LAB | | + +-------+ + + + + +---------+ + + | Performing | Address | City/State/Zipcode | Phone Number | | Organization | | | | + +---------+ + + | EXTERNAL LAB | | | | + +---------+ + + External Lab: Triglycerides (06/10/2018) + +-------+ + + + | Component | Value | Ref Range | Performed | Pathologist | | | | | At | Signature | + +-------+ + + + | Triglycerid | 206 | | EXTERNAL | | | es, [...] Cholesterol, HDL (06/10/2018) + +-------+ + + + | Component | Value | Ref Range | Performed | Pathologist | | | | | At | Signature | + +-------+ + + + | HDL | 47.6 | mg/dl | EXTERNAL | | | [...] Cholesterol, Total (06/10/2018) + +-------+ + + + | Component | Value | Ref Range | Performed | Pathologist | | | | | At | Signature | + +-------+ + + + | Cholesterol | 171 | mg/dl | EXTERNAL | | | [...] Cholesterol, LDL (06/10/2018) + +-------+ + + + | Component | Value | Ref Range | Performed | Pathologist | | | | | At | Signature | + +-------+ + + + | LDL | 82 | | EXTERNAL | | | Cholesterol [...] Lab: eGFR (06/10/2018) + +-------+ + + + | [...] Lab: Creatinine (06/10/2018) + +-------+ + + + | Component | Value | Ref Range | Performed | Pathologist | | | | | At | Signature | + +-------+ + + + | Creatinine, | 2.81 | | EXTERNAL | | | External [...]
--- OUTSIDE RECORDS SUMMARY | ~2018-08-25 | XMS | Encounter Summary ---
Demographics + + + | Address | [address] | | | [place] [address] | + + + | Home Phone | | + + + | Preferred Language | Unknown | + + + | Marital Status | Single | + + + | Buddhism Affiliation | 1041 | + + + | Race | Unknown | + + + | Ethnic Group | Unknown | + + + Author + + + | Author | [facility] | | | and [place] | + + + | Organization | [facility] | | [...] [place] | | | | | [address] | | + + + + + Care Team Providers + +------+ + | Care Plate Maker Name | Role | Phone | [...] | | [address] | [place], [address] | ([place]) (Primary | | | | [place], [place] | [place], [place] | Dx); Mixed | | | | [address] | [address] | hyperlipidemia; 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
--- OUTSIDE RECORDS SUMMARY | ~2018-08-25 | XMS | Encounter Summary ---
Demographics + + + | Address | [address] | | | [place] [address] | + + + | Home Phone | | + + + | Preferred Language | Unknown | + + + | Marital Status | Single | + + + | Pentecostal Affiliation | 1041 | + + + | Race | Unknown | + + + | Ethnic Group | Unknown | + + + Author + + + | Author | [facility] | | | and [place] | + + + | Organization | [facility] | | | [...] [place] | | | | | [address] | | + + + + + Care Team Providers + +------+ + | Care Network Associate Name | Role | Phone | [...] | | [address] | [place], [address] | | | | | [place], [place] | [place], [place] | | | | | [address] | [address] | | | | | [phone] | | | +--------+ + + + [...] | Visit | | DO [address] | | | | | | [place], [address] | | | | | | [place] | | | | | | [address] | | | | | | | [...] + + documented in this encounter Results Creatinine Clearance, Result [...] Hemoglobin A1C (06/20/2018) + +-------+ + + + | Component | Value | Ref Range | Performed | Pathologist | | | | | At | Signature | + +-------+ + + + | Hemoglobin | 6.3 | % | EXTERNAL | | | A1c | | | LAB | | + +-------+ + + + + + | Specimen | + + | Blood | + + + + | Resulting Agency Comment | + + | [facility] | + + + +---------+ + + | Performing | Address | City/State/Zipcode | Phone Number | | Organization | | | | + +---------+ + + | EXTERNAL LAB | | | | + +---------+ + + External Lab: CODY (06/20/2018) + +--------+ + + + | Component | Value | Ref Range | Performed | Pathologist | | | | | At | Signature | + +--------+ + + + | CODY, | 28 (A) | 6 - 23 | EXTERNAL | | | External | | | LAB | | + +--------+ + + + + + | Resulting Agency Comment | + + | [facility] | + + + +---------+ + + | Performing | Address | City/State/Zipcode | Phone Number | | Organization | | | | + +---------+ + + | EXTERNAL LAB | | | | + +---------+ + + External Lab: Glucose (06/20/2018) + +---------+ + + + | Component | Value | Ref Range | Performed | Pathologist | | | | | At | Signature | + +---------+ + + + | Glucose, | 168 (A) | 70 - 100 | EXTERNAL | | | External | | | LAB | | + +---------+ + + + + + | Resulting Agency Comment | + + | [facility] | + + + +---------+ + + | Performing | Address | City/State/Zipcode | Phone Number | | Organization | | | | + +---------+ + + | EXTERNAL LAB | | | | + +---------+ + + External Lab: ALT (06/20/2018) + +-------+ + + + | Component | Value | Ref Range | Performed | Pathologist | | | | | At | Signature | + +-------+ + + + | ALT, | 9 | 7 - 52 | EXTERNAL | | | External | [...] Lab: AST (06/20/2018) + +--------+ + + + | Component | Value | Ref Range | Performed | Pathologist | | | | | At | Signature | + +--------+ + + + | AST, | 10 (A) | 13 - 39 | EXTERNAL | | | External | | | LAB | | + +--------+ + + + + + | Resulting Agency Comment | + + | [facility] | + + + +---------+ + + | Performing | Address | City/State/Zipcode | Phone Number | | Organization | | | | + +---------+ + + | EXTERNAL LAB | | | | + +---------+ + + External Lab: Alkaline Phosphatase (06/20/2018) + +-------+ + + + | Component | Value | Ref Range | Performed | Pathologist | | | | | At | Signature | + +-------+ + + + | ALP, | 65 | 31 - 130 | EXTERNAL | | | External | [...] Bilirubin, Total (06/20/2018) + +-------+ + + + | Component | Value | Ref Range | Performed | Pathologist | | | | | At | Signature | + +-------+ + + + | Bilirubin, | 0.5 | 0 - 1.2 | EXTERNAL | | | Total, | [...] Lab: Albumin (06/20/2018) + +-------+ + + + | Component | Value | Ref Range | Performed | Pathologist | | | | | At | Signature | + +-------+ + + + | Albumin, | 4 | 3.5 - 5 | EXTERNAL | | | [...] Protein, Total (06/20/2018) + +-------+ + + + | Component | Value | Ref Range | Performed | Pathologist | | | | | At | Signature | + +-------+ + + + | Protein, | 6.1 | 6 - 8.3 | EXTERNAL | | | Total, | [...] Lab: Phosphorus (06/20/2018) + +-------+ + + + | [...] Lab: Calcium (06/20/2018) + +-------+ + + + | Component | Value | Ref Range | Performed | Pathologist | | | | | At | Signature | + +-------+ + + + | Calcium, | 9.7 | 8.5 - 10.3 | EXTERNAL | | | External | [...] Carbon Dioxide (06/20/2018) + +--------+ + + + | Component | Value | Ref Range | Performed | Pathologist | | | | | At | Signature | + +--------+ + + + | Carbon | 28 (A) | 6 - 23 | EXTERNAL | | | Dioxide, | | | LAB | | | External | | | | | + +--------+ + + + + + | Resulting Agency Comment | + + | [facility] | + + + +---------+ + + | Performing | Address | City/State/Zipcode | Phone Number | | Organization | | | | + +---------+ + + | EXTERNAL LAB | | | | + +---------+ + + External Lab: Chloride (06/20/2018) + +-------+ + + + | Component | Value | Ref Range | Performed | Pathologist | | | | | At | Signature | + +-------+ + + + | Chloride, | 101 | 95 - 112 | EXTERNAL | | | External | [...] Lab: Potassium (06/20/2018) + +-------+ + + + | Component | Value | Ref Range | Performed | Pathologist | | | | | At | Signature | + +-------+ + + + | Potassium, | 3.6 | 3.6 - 5.1 | EXTERNAL | | | External | [...] Lab: Sodium (06/20/2018) + +-------+ + + + | Component | Value | Ref Range | Performed | Pathologist | | | | | At | Signature | + +-------+ + + + | Sodium, | 143 | 132 - 143 | EXTERNAL | | | External | [...] D, 25-Hydroxy (06/20/2018) + +-------+ + + + | Component | Value | Ref Range | Performed | Pathologist | | | | | At | Signature | + +-------+ + + + | Vitamin D, | 32 | 30 - 100 | EXTERNAL | | | 25-Hydroxy, | | | LAB | | | External | | | | | + +-------+ + + + + + | Specimen | + + | Blood | + + + + | Resulting [...] CBC (06/20/2018) + + + + + + | Component | Value | Ref Range | Performed | Pathologist | | | | | At | Signature | + + + + + + | WBC, | 5.6 | 4.5 - 11 | EXTERNAL | | | External | | | LAB | | + + + + + + | HGB, | 11.9 (A) | 12 - 16 | EXTERNAL | | | External | | | LAB | | + + + + + + | HCT, | 35.9 | 35 - 45 | EXTERNAL | | | External | | | LAB | | + + + + + + | PLT, | 203 | 140 - 440 | EXTERNAL | | | External | | | LAB | | + + + + + + | RBC, | 3.66 (A) | 3.8 - 5.1 | EXTERNAL | | | External | | | LAB | | + + + + + + | MCV, | 98 | 81 - 99 | EXTERNAL | | | External | | | LAB | | + + + + + + | RDW, | 16.5 (A) | 10.5 - 15 | EXTERNAL | | | External | | | LAB | | + + + + + + + + | Resulting Agency Comment | + + | [facility] | + + + +---------+ + + | Performing | Address | City/State/Zipcode | Phone Number | | Organization | | | | + +---------+ + + | EXTERNAL LAB | | | | + +---------+ + + External Lab: Triglycerides (06/20/2018) + +---------+ + + + | Component | Value | Ref Range | Performed | Pathologist | | | | | At | Signature | + +---------+ + + + | Triglycerid | 157 (A) | 30 - 150 | EXTERNAL | | | es, | | | LAB | | | External | | | | | + +---------+ + + + + + | Specimen | + + | Blood | + + + + | Resulting Agency Comment | + + | [facility] | + + + +---------+ + + | Performing | Address | City/State/Zipcode | Phone Number | | Organization | | | | + +---------+ + + | EXTERNAL LAB | | | | + +---------+ + + External Lab: Cholesterol, HDL (06/20/2018) + +-------+ + + + | Component | Value | Ref Range | Performed | Pathologist | | | | | At | Signature | + +-------+ + + + | HDL | 47.9 | 40 mg/dl | EXTERNAL | | | Cholesterol | | | LAB | | | , External | | | | | + +-------+ + + + + + | Specimen | + + | Blood | + + + + | Resulting Agency Comment | + + | [facility] | + + + +---------+ + + | Performing | Address | City/State/Zipcode | Phone Number | | Organization | | | | + +---------+ + + | EXTERNAL LAB | | | | + +---------+ + + External Lab: Cholesterol, Total (06/20/2018) + +-------+ + + + | Component | Value | Ref Range | Performed | Pathologist | | | | | At | Signature | + +-------+ + + + | Cholesterol | 178 | 200 mg/dl | EXTERNAL | | | , Total, | | | LAB | | | External | | | | | + +-------+ + + + + + | Specimen | + + | Blood | + + + + | Resulting Agency Comment | + + | [facility] | + + + +---------+ + + | Performing | Address | City/State/Zipcode | Phone Number | | Organization | | | | + +---------+ + + | EXTERNAL LAB | | | | + +---------+ + + External Lab: Cholesterol, LDL (06/20/2018) + +-------+ + + + | Component | Value | Ref Range | Performed | Pathologist | | | | | At | Signature | + +-------+ + + + | LDL | 99 | 100 | EXTERNAL | | | Cholesterol | | | LAB | | | , External | | | | | + +-------+ + + + + + | Specimen | + + | Blood | + + + + | Resulting Agency Comment | + + | [facility] | + + + +---------+ + + | Performing | Address | City/State/Zipcode | Phone Number | | Organization | | | | + +---------+ + + | EXTERNAL LAB | | | | + +---------+ + + External Lab: eGFR (06/20/2018) + +-------+ + + + | Component | Value | Ref Range | Performed | Pathologist | | | | | At | Signature | + +-------+ + + + | eGFR, | 19 | | EXTERNAL | | | External | | | LAB | | + +-------+ + + + + + | Specimen | + + | Blood | + + + + | Resulting Agency Comment | + + | [facility] | + + + +---------+ + + | Performing | Address | City/State/Zipcode | Phone Number | | Organization | | | | + +---------+ + + | EXTERNAL LAB | | | | + +---------+ + + External Lab: Creatinine (06/20/2018) + +---------+ + + + | Component | Value | Ref Range | Performed | Pathologist | | | | | At | Signature | + +---------+ + + + | Creatinine, | 2.5 (A) | 0.7 - 1.11 | EXTERNAL | | | External | | | LAB | | + +---------+ + + + + + | Specimen | + + | Blood | + + + + | Resulting [...]
--- OUTSIDE RECORDS SUMMARY | ~2018-08-25 | XMS | Encounter Summary ---
Demographics + + + | Address | [address] | | | [place] [address] | + + + | Home Phone | | + + + | Preferred Language | Unknown | + + + | Marital Status | Single | + + + | Congregation Affiliation | 1041 | + + + | Race | Unknown | + + + | Ethnic Group | Unknown | + + + Author + + + | Author | [facility] | | | and [place] | + + + | Organization | [facility] | | | [...] [place] | | | | | [address] | | + + + + + Care Team Providers + +------+ + | Care Senior Validation Engineer Name | Role | Phone | + [...] | | [address] | [place], [address] | | | | | [place], [place] | [place], [place] | | | | | [address] | [address] | | | | | [phone] | | | +--------+ + + + [...] | Visit | | DO [address] | | | | | | [place], [address] | | | | | | [place] | | | | | | [address] | | | | | | | [...]
--- OUTSIDE RECORDS SUMMARY | ~2018-08-25 | XMS | Encounter Summary ---
Demographics + + + | Address | [address] | | | [place] [address] | + + + | Home Phone | | + + + | Preferred Language | Unknown | + + + | Marital Status | Single | + + + | Zoroastrian Affiliation | 1041 | + + + | Race | Unknown | + + + | Ethnic Group | Unknown | + + + Author + + + | Author | [facility] | | | and [place] | + + + | Organization | [facility] | | | [...] [place] | | | | | [address] | | + + + + + Care Team Providers + +------+ + | Care Aerospace Medicine Physician Name | Role | Phone | [...] IV | | | | [address] | [place], [address] | ([place]) (Primary | | | | [place], [place] | [place], [place] | Dx); Mixed | | | | [phone] | [address] | hyperlipidemia; Type | | | | [phone] | | 2 diabetes mellitus | | [...] | Visit | | DO [address] | | | | | | [place], [address] | | | | | | [place] | | | | | | [phone] | | | | | | | [...]
--- OUTSIDE RECORDS SUMMARY | ~2018-08-25 | XMS | Encounter Summary ---
Demographics + + + | Address | [address] | | | [place] [address] | + + + | Home Phone [...] [place] | | | | | [address] | | + + + + + Care Team Providers + +------+ + | Care Manifest/Order Organizer Print Orders Name | Role | Phone | + [...] | | [address] | [place], [address] | | | | | [place], [place] | [place], [place] | | | | | [address] | [address] | | | | | [phone] | | | +--------+ + + + [...] | Visit | | DO [address] | | | | | | [place], [address] | | | | | | [place] | | | | | | [address] | | | | | | | [...]
--- OUTSIDE RECORDS SUMMARY | ~2018-08-25 | XMS | Encounter Summary ---
Demographics + + + | Address | [address] | | | [place] [address] | + + + | Home Phone | | + + + | Preferred Language | Unknown | + + + | Marital Status | Single | + + + | Oriental Orthodox Affiliation | 1041 | + + + | Race | Unknown | + + + | Ethnic Group | Unknown | + + + Author + + + | Author | [facility] | | | and [place] | + + + | Organization | [facility] | | | [...] [place] | | | | | [address] | | + + + + + Care Team Providers + +------+ + | Care Plating Equipment Tender Name | Role | Phone | + [...] kidney | DO [address] | [address] | | | | | disease, | [address] [place] | [place], [place] | | | | | stage 4 | [place], [place] | [address] [place] | | | | | (severe) | [address] | [facility], [place] | | | | | (HCC) | Phone: | [phone] Phone: | | | | | Essential | [phone] | [phone] | | | | | hypertension | Fax: | Fax: | | | | | Anemia in | [phone] | [phone] | | | | | chronic | | | | | | | kidney | | | | | | | disease | | | | | | | Dysuria | | | | | | | Procedures | | | | | | | [place] OFFICE | | | | | | [...] | | [address] | [place], [address] | CHRONIC KIDNEY | | | | [place], [place] | [place], [place] | DISEASE STAGE IV | | | | [address] | [address] | ([place]VERE); Essential | | | | [phone] | | hypertension; Type 2 | | [...] She states that she was DC'd from [facility], [place], [place] on 08/16 after a stay for [...] PHOSEX 3.5 06/20/2018 PTHEX 143 (A) 08/16/2018 [id number] 5.7 08/16/2018 Lab Results Component Value Date [...] attempt to obtain her DC records from [facility] from the recent stay. 2 I reviewed [...] 6 months at the [facility] at [place], [place]. She will have a CBC, CMP, [...] | Visit | | DO [address] | | | | | | [address] | | | | | | [place] | | | | | | [phone] | | | | | | | [...]
--- OUTSIDE RECORDS SUMMARY | ~2018-08-25 | XMS | Clinical Summary ---
Demographics + + + | Address | [address] | | | [place] [address] | + + + | Home Phone | | + + + | Preferred Language | Unknown | + + + | Marital Status | Single | + + + | Restoration Affiliation | [id number] | + + + [...] [place] | | | | | [address] | | + + + + + Care Team Providers + +------+ + | Care Software Project Lead Name | Role | Phone | + [...] | | | | | | (moderate) ([facility]), | | | | | | | | Anemia in chronic | | | | | | | | kidney | | | | | | | | disease(285.21), | | | | | | | | Diabetes mellitus, | | | | | | | | type 2 ([facility]), CHF | | | | | | | | (congestive heart | | | | | | | | failure) ([facility]), | | | | | | | [...] | | | | | whether senior living | | | | | | insulin [...] | | | | | | whether remote computer terminal operator | | | | | | [...] | | | | | whether senior living | | | | | | insulin [...] | 2018 | Visit | | Colin [address] [place] [address] | | | | | | [place], [address] | | | | | | [place] | | | | | | [address] | | | | | | | [...] + +--------+ | MEDICARE | MEDICA | [id number] | 11/19/19 | [phone] | | Medica | | | RE | | 03-Pre | 5 | | re | | | PART A | | sent | | | | | | AND B | | | | | | + +--------+ +--------+ + +--------+ | MODA | MODA | [id number] | 07/20/19 | [phone] | [address] | Indemn | | | HEALTH | | 08-Pre | 9 | [id number] | ity | | | MDCR | | sent | | [place], | | | | [place] | | | | [place] [address] | | + +--------+ +--------+ + +--------+ [...] | | [address] (Home) | [place] [address] | + +--------+ +--------+ + + Advance Directives Patient has advance care planning documents, and code status on file. For more information, please contact:[facility] [place] [address] + + + + + | Code [...]
--- OUTSIDE RECORDS SUMMARY | ~2018-08-25 | XMS | Clinical Summary ---
Demographics + + + | Address | [address] | | | [place] [address] | + + + | Home Phone | | + + + | Preferred Language | Unknown | + + + | Marital Status | Single | + + + | Pentecostalism Affiliation | Unknown | + + + [...] Team Providers + +------+ + | Care Hand Assembler For Puller Over Name | Role | Phone | + +------+ + | Tanvir Waters DO | PP | Unavailable | + +------+ + Source Comments BOGDAN is fully live on both [facility]ulatory and [facility] InPatient.[facility] Allergies + + + + [...] kidney disease) stage 4, GFR 15-29 ml/min (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 | | GFR < 20 mL/min | + + + +---+ | Diabetes mellitus, type II ([facility]) | | + +---+ + + [...] | re | [address] | [place] [address] | | | B | | | | | + +--------+ +--------+ + + | MEDICARE RENAL | MEDICA | xxxxxxxxxx | Agency | | RENAL DEPT [id number] | | RECIPIENT EVAL | RE | | | | [place] [address] | | | RENAL | | | | | | | RECIPI | | | | | | | ENT | | | | | | | EVAL | | | | | + +--------+ +--------+ + + | MODA MEDICARE | MODA | xxxxxxxxx | POS | [phone] | [address] [address] | | SUPPLEMENT | MEDICA | | | [phone] | [place] [address] | | | RE | | | [...] | 1936 | +- | [place] [address] | | | heladio | | | [address] | | + +--------+ +--------+ + + | DALIA KAT | Specia | Self | [birth year] | Home: | [address] | | [place] | l | | 1936 | [phone] | [place] [address] | | | [place] | | | [address] | | | | g | | | | | + +--------+ +--------+ + +
--- OUTSIDE RECORDS SUMMARY | ~2018-08-25 | XMS | Encounter Summary ---
Demographics + + + | Address | [address] | | | [place] [address] | + + + | Home Phone | | + + + | Preferred Language | Unknown | + + + | Marital Status | Single | + + + | Restorationist Affiliation | 1041 | + + + | Race | Unknown | + + + | Ethnic Group | Unknown | + + + Author + + + | Author | [facility] | | | and [place] | + + + | Organization | [facility] | | [...] [place] | | | | | [address] | | + + + + + Care Team Providers + +------+ + | Care Nuclear Medicine Medical Director Name | Role | Phone | [...] | | [address] | [place], [address] | | | | | [place], [place] | [place], [place] | | | | | [address] | [address] | | | | | [phone] | | | +--------+ + + + [...] | Visit | | DO Colin [address] | | | | | | [place], [address] | | | | | | [place] | | | | | | [address] | | | | | | | [...]
--- OUTSIDE RECORDS SUMMARY | ~2018-08-25 | XMS | Clinical Summary ---
Demographics + + + | Address | [address] | | | [place] [address] | + + + | Home Phone | | + + + | Preferred Language | Unknown | + + + | Marital Status | Single | + + + | Jainism Affiliation | Unknown | + + + | Race | Unknown | + + + | Ethnic Group | Unknown | + + + Author + + + | Author | [facility] | + + + | Organization | [facility] | + + + | Address | Unknown | + + + | Phone | Unavailable | + + + Support + + + + + | Name | Relationship | Address | Phone | + + + + + | Brissa Corrales | ECON | [address] | | | | | [place] | | | | | [address] | | + + + + + Care Team Providers + +------+ + | Care Optical Scientist Name | Role | Phone | + [...] +------+-------+ + | MEDICARE | MEDICA | [id number] | | | [address] | | | RE | | | | [place] [address] | | | IP-OP | | | | | + +--------+ +------+-------+ + | ODS HE[employer] PLAN | ODS | [id number] | | | | | | HEALTH [...] | | | [place] | | | 1910 | [address] | + +--------+ +--------+ + +
--- OUTSIDE RECORDS SUMMARY | ~2018-08-25 | XMS | Encounter Summary ---
Demographics + + + | Address | [address] | | | [place] [address] | + + + | Home Phone | | + + + | Preferred Language | Unknown | + + + | Marital Status | Single | + + + | Anabaptism Affiliation | 1041 | + + + | Race | Unknown | + + + | Ethnic Group | Unknown | + + + Author + + + | Author | [facility] | | | and [place] | + + + | Organization | [facility] | | [...] [place] | | | | | [address] | | + + + + + Care Team Providers + +------+ + | Care Procedure Tech Name | Role | Phone | + [...] | | [address] | [place], [address] | | | | | [place], [place] | [place], [place] | | | | | [address] | [address] | | | | | [phone] | | | +--------+ + + + [...] | Visit | | DO Colin [address] | | | | | | [place], [address] | | | | | | [place] | | | | | | [address] | | | | | | | [...]
[~2018-08-25 18:14] MED LIST changes: +ALPRAZOLAM ER3 MG PO; +DEMADEX20 MG PO; +VENLAFAXINE HCL75 M1 PO; +VITAMIN D31000 UNI1 PO
--- OUTSIDE RECORDS SUMMARY | 2018-08-25 18:16 | XMS ---
PreManage Notification: CHARLES KAT Security Crown Perforator Operator Events 1 event(s) in the past 18 months Most recent security events: Elopement at [facility] 04/30/2017 20:32 - Patient eloped before treatment completed. Details: LWBS CRITERIA MET - Group Notification - PDMP - [facility] - 2 Visits in 30 Days CARE PROVIDERS MICKIE CUELLAR [facility] 02/26/2018-Current PHONE: Unknown Hardik Waters Current PHONE: Unknown Deshawn has no Care Guidelines for this patient. E.DMelvin VISIT COUNT (12 MO.) 4 [facility] TOTAL 4 NOTE: Visits indicate total known visits. ED/UCC VISIT TRACKING (12 MO.) 08/25/2018 18:14 [facility] TYPE: Emergency COMPLAINT: - ANXIETY 08/07/2018 11:51 [facility] TYPE: Emergency COMPLAINT: - FLU SYMPTOMS 03/14/2018 12:17 [facility] TYPE: Emergency COMPLAINT: - CONFUSION DIAGNOSES: - Type 2 diabetes mellitus without complications - Heart failure, unspecified - Other long-term (current) drug therapy - Gastro-esophageal reflux disease without esophagitis - Anxiety disorder, unspecified - Disorientation, unspecified - Chronic kidney disease, unspecified - Urinary tract infection, site not specified - Hypertensive heart and chronic kidney disease with heart failure and stage 1 through stage 4 chronic kidney disease, or unspecified chronic kidney disease - Allergy status to sulfonamides status 02/25/2018 08:38 [facility] TYPE: Emergency COMPLAINT: - FOREIGN OBJECT R EAR/MSE TO HOME DIAGNOSES: - Foreign body in right ear, initial encounter INPATIENT VISIT TRACKING (12 MO.) 08/07/2018 11:52 [facility] [place] TYPE: Observation COMPLAINT: - HYPERCALCEMIA HYPOKALEMIA DIAGNOSES: - Allergy status to sulfonamides status - Anxiety disorder, unspecified - Monoclonal gammopathy - Heart failure, unspecified - Hypertensive heart and chronic kidney disease with heart failure and stage 1 through stage 4 chronic kidney disease, or unspecified chronic kidney disease - Shortness of breath - Gastro-esophageal reflux disease without esophagitis - Hypothyroidism, unspecified - Secondary hyperparathyroidism, not elsewhere classified - Do not resuscitate - Dehydration - Acute kidney failure, unspecified - Post-traumatic stress disorder, unspecified - halfway (current) use of insulin - Hypercalcemia - Personal history of nicotine dependence - Hyperlipidemia, unspecified - Other termite control representative (current) drug therapy - Type 2 diabetes mellitus with diabetic chronic kidney disease - Chronic kidney disease, stage 4 (severe) - Hypokalemia [email or web address]
== END 2018-08-25 19:55 | disposition home or self-care (01) ==
LOC: ED 18:14
DX: F41.9 Anxiety disorder, unspecified (principal); I11.0 Hypertensive heart disease with heart failure; E11.9 Type 2 diabetes mellitus without complications; K21.9 Gastro-esophageal reflux disease without esophagitis; Z88.2 Allergy status to sulfonamides; Z79.899 Other long term (current) drug therapy; Z79.4 Long term (current) use of insulin
CPT/HCPCS: 99283

== ENCOUNTER 2020-10-23 22:25 | Emergency (ER) | payer MEDICARE, OTHER ==
[~2020-10-23] VITALS: Ht 162.6 cm; Wt 83.5 kg
--- OUTSIDE RECORDS SUMMARY | 2020-10-23 22:32 | XMS ---
PreManage Notification: CHARLES KAT Security Hotel Operation Manager Events No recent Security Events currently on file CRITERIA MET - Group Notification - [facility] - Has Care Guidelines CARE PROVIDERS MICKIE CUELLAR Family Medicine 02/26/2018-Current PHONE: [phone] Susannah Orellana Helper Shear Operator/Supervisor Metal Furniture Fabrication 06/21/2020-Current PHONE: [phone] Guidelines Source[facility] Guidelines Date: 11/18/2019 Care Coordination: Member is currently not engaged in [facility] services. If Mental Health services are needed, please contact: Hector [phone] Paul/ [place]olt[place] [phone] Crisis Line [phone] Care History Medical/Surgical 08/27/2018 [facility] - PATIENT HAS A FOLLOW UP APT WITH DR CUELLAR ON Sunday08/29/18 @ 3:30PM. E.D. VISIT COUNT (12 MO.) 1 [facility] TOTAL 1 NOTE: Visits indicate total known visits. ED/UCC VISIT TRACKING (12 MO.) 10/23/2020 22:27 [facility] [place] TYPE: Emergency COMPLAINT: - MEDICATION REFILL INPATIENT VISIT TRACKING (12 MO.) No inpatient visits to display in this time frame [id number]
[2020-10-23] MEDS ORDERED: MIRTAZAPINE15 MG PO (22:51)
[2020-10-23] MEDS ORDERED: CLONAZEPAM2 MG (22:52)
[2020-10-23] MEDS ORDERED: FEBUXOSTAT40 MG PO (22:52)
[2020-11-07] MEDS ORDERED: NITROFURANTOIN100 M1 PO (14:58)
[2020-11-07] MEDS ORDERED: CALCITRIOL0.5 MCG PO (14:58)
== END 2020-10-23 23:53 | disposition home or self-care (01) ==
LOC: ED 22:25
DX: Z76.0 Encounter for issue of repeat prescription (principal); I11.0 Hypertensive heart disease with heart failure; I50.9 Heart failure, unspecified; E11.9 Type 2 diabetes mellitus without complications; K21.9 Gastro-esophageal reflux disease without esophagitis; Z88.2 Allergy status to sulfonamides; Z79.899 Other long term (current) drug therapy; Z79.4 Long term (current) use of insulin
CPT/HCPCS: 99281; J1815

== ENCOUNTER → 2020-11-07 | Emergency (ER) | payer MEDICARE, OTHER ==
[~2020-11-07] VITALS: Ht 162.6 cm; Wt 83.5 kg
[~2020-11-07] MED LIST changes: +CALCITRIOL0.5 MCG PO; +CEFPODOXIME PR200 MG PO; +CLONAZEPAM2 MG; +CLONAZEPAM2 MG PO; +FEBUXOSTAT40 MG PO; +MIRTAZAPINE15 MG PO; +NITROFURANTOIN100 M1 PO; +PRAVASTATIN SOD20 MG PO; +TORSEMIDE20 MG PO; +VENLAFAXINE H37.5 M1 PO
--- OUTSIDE RECORDS SUMMARY | 2020-11-07 14:38 | XMS ---
PreManage Notification: CHARLES KAT Security Sliver Lap Tender Events No recent Security Events currently on file CRITERIA MET - PDMP - Group Notification - [facility] - 2 Visits in 30 Days - [facility] - Has Care Guidelines CARE PROVIDERS MICKIE CUELLAR Family Medicine 10/25/2020-Current PHONE: [phone] Susannah Orellana Pharmacognosy Teacher/Multiple Pressure Riveter Operator 06/21/2020-Current PHONE: [phone] Guidelines Source: [facility] [facility] Guidelines Date: 11/18/2019 Care Coordination: Member is currently not engaged in [employer] services. If Mental Health services are needed, please contact: Hector [phone] Paul/ Colton Bennett [phone] [facility] Line [phone] Care History Medical/Surgical 08/27/2018 [facility] - PATIENT HAS A FOLLOW UP APT WITH DR CUELLAR ON Sunday08/29/18 @ 3:30PM. E.D. VISIT COUNT (12 MO.) [address] [facility] TOTAL 2 NOTE: Visits indicate total known visits. ED/UCC VISIT TRACKING (12 MO.) 11/07/2020 14:37 [facility] [place] TYPE: Emergency COMPLAINT: - WEAKNESS 10/23/2020 22:27 [facility] [place] TYPE: Emergency COMPLAINT: - MEDICATION REFILL DIAGNOSES: - Gastro-esophageal reflux disease without esophagitis - manager terminal (current) use of insulin - Hypertensive heart disease with heart failure - Type 2 diabetes mellitus without complications - Allergy status to sulfonamides - Encounter for issue of repeat prescription - Heart failure, unspecified - Other long term care administrator (current) drug therapy INPATIENT VISIT TRACKING (12 MO.) No inpatient visits to display in this time frame [id number]
--- NOTE | 2020-11-08 18:06 | EKG ---
[facility] [address] [place] [address] Signed Sinus rhythm with occasional premature ventricular complexes Left axis deviation Left bundle branch block Abnormal ECG When compared with ECG of 14-MAR-2018 13:00, T wave inversion no longer evident in Inferior leads T wave amplitude has decreased in Anterior leads T wave inversion less evident in Lateral leads Confirmed by OFELIA NIEVES MD ([id number]) on 11/08/2020 6:06:44 PM Electronically Signed By: OFELIA NIEVES MD 11/08/201805 PATIENT NAME: CHARLES KAT Electrocardiogram DATE OF : 39 PHYSICIAN: OFELIA NIEVES MD REPORT #: [id number] REPORT IS CONFIDENTIAL AND NOT TO BE RELEASED WITHOUT AUTHORIZATION
== END ==
LOC: ED 14:37
DX: R53.1 Weakness (principal); I11.0 Hypertensive heart disease with heart failure; I50.9 Heart failure, unspecified; E11.9 Type 2 diabetes mellitus without complications; K21.9 Gastro-esophageal reflux disease without esophagitis; Z87.891 Personal history of nicotine dependence; Z88.2 Allergy status to sulfonamides; Z79.899 Other long term (current) drug therapy; Z79.4 Long term (current) use of insulin
CPT/HCPCS: 71045; 80053; 81001; 83735; 84484; 85025; 93005; 93010; 99285-25

== ENCOUNTER 2020-11-09 12:42 | Emergency (ER) | payer MEDICARE, OTHER ==
[~2020-11-09] VITALS: Ht 162.6 cm; Wt 83.5 kg
[~2020-11-09 12:42] MED LIST changes: -CEFPODOXIME PR200 MG PO; -CLONAZEPAM2 MG PO; -PRAVASTATIN SOD20 MG PO; -TORSEMIDE20 MG PO; -VENLAFAXINE H37.5 M1 PO
--- OUTSIDE RECORDS SUMMARY | 2020-11-09 12:54 | XMS ---
PreManage Notification: CHARLES KAT Security Order Checker Events No recent Security Events currently on file CRITERIA MET - [facility] - 2 Visits in 30 Days - [facility] - Has Care Guidelines - Group Notification CARE PROVIDERS MICKIE CUELLAR Family Medicine 10/25/2020-Current PHONE: [phone] Susannah Orellana Video Intern/Demolition Specialist 06/21/2020-Current PHONE: [phone] Guidelines Source: [employer] [facility] Guidelines Date: 11/18/2019 Care Coordination: Member is currently not engaged in [employer] services. If Mental Health services are needed, please contact: Hector [phone] Paul/ Colton Bennett [phone] [facility] Line [phone] Care History Medical/Surgical 08/27/2018 [facility] - PATIENT HAS A FOLLOW UP APT WITH DR CUELLAR ON Sunday08/29/18 @ 3:30PM. E.D. VISIT COUNT (12 MO.) [address] [facility] TOTAL 3 NOTE: Visits indicate total known visits. ED/UCC VISIT TRACKING (12 MO.) 11/09/2020 12:44 [facility] [place] TYPE: Emergency COMPLAINT: - HALLUCINATIONS, POSS WRONG MEDICATION 11/07/2020 14:37 [facility] [place] TYPE: Emergency COMPLAINT: - WEAKNESS [facility]23[facility] [place] [facility] COMPLAINT: - MEDICATION REFILL DIAGNOSES: - Gastro-esophageal reflux disease without esophagitis - rat exterminator (current) use of insulin - Hypertensive heart disease with heart failure - Type 2 diabetes mellitus without complications - Allergy status to sulfonamides - Encounter for issue of repeat prescription - Heart failure, unspecified - Other residential (current) drug therapy INPATIENT VISIT TRACKING (12 MO.) No inpatient visits to display in this time frame [id number]
--- NOTE | 2020-11-11 18:30 | EKG ---
[facility] [address] [place] [address] Signed Normal sinus rhythm Left axis deviation Left bundle branch block Abnormal ECG When compared with ECG of 07-NOV-2020 15:18, premature ventricular complexes are no longer present Confirmed by OFELIA NIEVES MD ([id number]) on 11/11/2020 6:30:38 PM Electronically Signed By: OFELIA NIEVES MD 11/11/201829 PATIENT NAME: CHARLES KAT Electrocardiogram DATE OF : 39 PHYSICIAN: OFELIA NIEVES MD REPORT #: [id number] REPORT IS CONFIDENTIAL AND NOT TO BE RELEASED WITHOUT AUTHORIZATION
== END 2020-11-09 17:15 | disposition home or self-care (01) ==
LOC: ED 12:42
DX: T42.4X1A Poisoning by benzodiazepines, accidental (unintentional), initial encounter (principal); Z20.822 Contact with and (suspected) exposure to COVID-19; I11.0 Hypertensive heart disease with heart failure; I50.9 Heart failure, unspecified; E11.9 Type 2 diabetes mellitus without complications; K21.9 Gastro-esophageal reflux disease without esophagitis; Z87.891 Personal history of nicotine dependence; Z88.2 Allergy status to sulfonamides; Z79.899 Other long term (current) drug therapy
CPT/HCPCS: 70450; 80053; 81001; 85025; 93005; 93010; 99284-25; C9803; U0003

== ENCOUNTER 2020-11-11 18:13 | Emergency (ER) | payer MEDICARE, OTHER ==
[~2020-11-11] VITALS: Ht 162.6 cm; Wt 83.5 kg
--- OUTSIDE RECORDS SUMMARY | 2020-11-11 18:16 | XMS ---
PreManage Notification: CHARLES KAT Security Construction Technology Instructor Events No recent Security Events currently on file CRITERIA MET - [facility] - Has Care Guidelines - [facility] - 2 Visits in 30 Days - Group Notification - PDMP CARE PROVIDERS MICKIE CUELLAR Family [facility] 10/25/2020-Current PHONE: [phone] Susannah Orellana [employer] Membership Advisors/Home Security Alarm Installer 06/21/2020-Current PHONE: [phone] Guidelines Source: [employer] [facility] Guidelines Date: 11/18/2019 Care Coordination: Member is currently not engaged in [employer] services. If Mental Health services are needed, please contact: Hector [phone] Paul/ Colton Bennett [phone] [facility] Line [phone] Care History Medical/Surgical 08/27/2018 [facility] - PATIENT HAS A FOLLOW UP APT WITH DR CUELLAR ON Sunday08/29/18 @ 3:30PM. E.D. VISIT COUNT (12 MO.) [address] [facility] TOTAL 4 NOTE: Visits indicate total known visits. ED/UCC VISIT TRACKING (12 MO.) 11/11/2020 18:14 [facility] [place] TYPE: Emergency COMPLAINT: - MEDICAL CLEARANCE 11/09/2020 12:44 [facility] [place] TYPE: Emergency COMPLAINT: - HALLUCINATIONS, POSS WRONG MEDICATION 11/07/2020 14:37 [facility] [place] TYPE: Emergency COMPLAINT: - WEAKNESS DIAGNOSES: - Weakness - termite treater helper (current) use of insulin - Personal history of nicotine dependence - Heart failure, unspecified - Other shelter (current) drug therapy - Gastro-esophageal reflux disease without esophagitis - Hypertensive heart disease with heart failure - Type 2 diabetes mellitus without complications - Allergy status to sulfonamides 10/23/2020 22:27 [facility] [place] TYPE: Emergency COMPLAINT: - MEDICATION REFILL DIAGNOSES: - Gastro-esophageal reflux disease without esophagitis - halfway (current) use of insulin - Hypertensive heart disease with heart failure - Type 2 diabetes mellitus without complications - Allergy status to sulfonamides - Encounter for issue of repeat prescription - Heart failure, unspecified - Other shelter (current) drug therapy INPATIENT VISIT TRACKING (12 MO.) No inpatient visits to display in this time frame [id number]
== END 2020-11-11 19:26 | disposition home or self-care (01) ==
LOC: ED 18:13
DX: F03.91 Unspecified dementia, unspecified severity, with behavioral disturbance (principal); I11.0 Hypertensive heart disease with heart failure; I50.9 Heart failure, unspecified; E11.9 Type 2 diabetes mellitus without complications; K21.9 Gastro-esophageal reflux disease without esophagitis; Z88.2 Allergy status to sulfonamides; Z79.899 Other long term (current) drug therapy; Z79.4 Long term (current) use of insulin
CPT/HCPCS: 80053; 81001; 84443; 85025; 99284; G0480

== ENCOUNTER 2020-11-12 10:14 | Inpatient (IN) | payer MEDICARE, OTHER ==
[~2020-11-12] VITALS: Ht 162.6 cm; Wt 81.3 kg
--- OUTSIDE RECORDS SUMMARY | 2020-11-12 10:16 | XMS ---
PreManage Notification: CHARLES KAT Security Control Director Events No recent Security Events currently on file CRITERIA MET - [facility] - Has Care Guidelines - Group Notification - PDMP - [facility] - 2 Visits in 30 Days CARE PROVIDERS MICKIE CUELLAR Family Medicine 10/25/2020-Current PHONE: [phone] Susannah Orellana Livestock Trader/Residential Tech 06/21/2020-Current PHONE: [phone] Guidelines Source: [employer] [facility] Guidelines Date: 11/18/2019 Care Coordination: Member is currently not engaged in [employer] services. If Mental Health services are needed, please contact: Hector [phone] Paul/ Colton Bennett [phone] [facility] Line [phone] Care History Medical/Surgical 08/27/2018 [facility] - PATIENT HAS A FOLLOW UP APT WITH DR CUELLAR ON Sunday08/29/18 @ 3:30PM. E.D. VISIT COUNT (12 MO.) [address] [facility] TOTAL 5 NOTE: Visits indicate total known visits. ED/UCC VISIT TRACKING (12 MO.) 11/12/2020 10:14 [facility] [place] TYPE: Emergency COMPLAINT: - CONFUSION 11/11/2020 18:14 [facility] [place] TYPE: Emergency COMPLAINT: - MEDICAL CLEARANCE 11/09/2020 12:44 [facility] [place] TYPE: Emergency COMPLAINT: - HALLUCINATIONS, POSS WRONG MEDICATION DIAGNOSES: - Other intermodal owner operator truck driver (current) drug therapy - Type 2 diabetes mellitus without complications - Personal history of nicotine dependence - Allergy status to sulfonamides - Hypertensive heart disease with heart failure - Heart failure, unspecified - Poisoning by benzodiazepines, accidental (unintentional), initial encounter - Gastro-esophageal reflux disease without esophagitis - Disorientation, unspecified 11/07/2020 14:37 [facility] [place] TYPE: Emergency COMPLAINT: - WEAKNESS DIAGNOSES: - Weakness - FPC (current) use of insulin - Personal history of nicotine dependence - Heart failure, unspecified - Other intermodal owner operator truck driver (current) drug therapy - Gastro-esophageal reflux disease without esophagitis - Hypertensive heart disease with heart failure - Type 2 diabetes mellitus without complications - Allergy status to sulfonamides 10/23/2020 22:27 [facility] [place] TYPE: Emergency COMPLAINT: - MEDICATION REFILL DIAGNOSES: - Gastro-esophageal reflux disease without esophagitis - FPC (current) use of insulin - Hypertensive heart disease with heart failure - Type 2 diabetes mellitus without complications - Allergy status to sulfonamides - Encounter for issue of repeat prescription - Heart failure, unspecified - Other half-way (current) drug therapy INPATIENT VISIT TRACKING (12 MO.) No inpatient visits to display in this time frame [id number]
--- NOTE | 2020-11-12 19:00 | NUR ---
SHIFT REPORT RECEIVED FROM DAYSHIFT GIOVANNI CANO AT BEDSIDE. pt AWAKE AND RESTING IN BED, COMPLIANT WITH CARE AND FRIENDLY WITH STAFF. DENIES NEEDS, CALL LIGHT IN REACH. BED ALARM ON FOR SAFETY.
--- NOTE | 2020-11-12 21:30 | NUR ---
DAUGHTER JAMAL NATION ([phone]) IN ROOM TO VISIT pt, pt RESTING IN BED AND LAUGHING WITH SUPERVISOR DIALS AND DAUGHTER. WHEN ASKED pt'S BASELINE, DAUGHTER REPORTS THEY THINK THERE COULD BE SOME DEMENTIA AND DAUGHTER THINKS THE pt LAUGHS TO COVER UP WHEN SHE IS UNSURE ON HOW TO ANSWER QUESTIONS, DAUGHTER ALSO CLAIMS THAT pt TAKES XANAX REGULARLY AT HOME. BED ALARM ON FOR SAFETY, WILL CONTIUNE TO MONITOR. CALL LIGHT IN REACH.
--- NOTE | 2020-11-12 22:15 | NUR ---
ASSESSMENT COMPLETE, VSS. pt A/O TO SELF AND PLACE. REORIENTED TO DATE AND TIME, BED ALARM ON FOR SAFETY. IV FLUIDS INFUSING PER MD ORDERS, SITE WNL. pt REPOSITIONED IN BED, PILLOW UNDER RIGHT HIP. SCANT REDDNESS TO BUTTOCKS, BLANCHABLE. NO FURTHER NEEDS, CALL LIGHT IN REACH. CATH CARE DONE, ARAUJO PATENT. REDDNESS NOTED TO JEFF AREA, BARRIER CREAM IN PLACE. NO FURTHER NEEDS, CALL LIGHT IN REACH. BED ALARM ON.
--- NOTE | 2020-11-12 22:30 | NUR ---
IN TO GET VITALS, EMPTIED ARAUJO, ICE WATER PROVIDED, NO FURTHER NEEDS
--- NOTE | 2020-11-12 23:32 | NUR ---
spoke to wei in lab to clarify orders for urine culture. per wei in lab, urine culture has already been collected.
--- NOTE | 2020-11-13 01:44 | NUR ---
pt RESTING QUIETLY IN BED WITH EYES CLOSED, RR EVEN AND UNLABORED. NO DISTRESS NOTED, pt APPEARS COMFORTABLE AND RELAXED. CALL LIGHT IN REACH AND BED ALARM ON FOR SAFETY.
--- NOTE | 2020-11-13 02:20 | NUR ---
IN TO GET VITALS, I&Os DONE, ARAUJO EMPTIED AT THIS TIME, ICE WATER REFILLED, RN IN TO ASSIST WITH REPOSITION, PT TURNED TO RIGHT SIDE WITH PILLOW UNDER LEFT HIP, NO FURTHER NEEDS
--- NOTE | 2020-11-13 02:36 | NUR ---
0200 VSS, pt DENIES PAIN. NEW BAG IV FLUIDS HUNG AND INFUSING AT 125MLS/HR, SITE WNL. FLUSHES EASILY. ASSESSMENT ALSO COMPLETE, NO NEW CHANGES OR CONCERNS. pt A/O TO SELF AND PLACE, BED ALARM ON. NO FURTHER NEEDS, REPOSITIONED IN BED, PILLOW UNDER LEFT HIP. pt ABLE TO CHANGE POSITIONS IN BED.
--- NOTE | 2020-11-13 04:19 | NUR ---
pt RESTING IN BED WITH EYES CLOSED, RR EVEN AND UNLABORED. NO DISTRESS NOTED. CALL LIGHT IN REACH AND BED ALARM ON FOR SAFETY.
--- NOTE | 2020-11-13 05:17 | NUR ---
REINALDO FROM LAB IN ROOM TO COLLECT LAB DRAW.
--- NOTE | 2020-11-13 06:00 | NUR ---
O2 SAT 89% ON RA, pt PLACED ON 1LNC, O2 SATS SUSTAINING IN MID 90'S. CALL LIGHT IN REACH.
--- NOTE | 2020-11-13 06:25 | NUR ---
IN TO GET VITALS, ARAUJO EMPTIED/CATH CARE DONE AT THIS TIME, FRESH ICE WATER GIVEN, NO FURTHER NEEDS AT THIS TIME
--- NOTE | 2020-11-13 06:27 | NUR ---
pt HAD A GOOD NIGHT, A/O TO SELF AND PLACE. FORGETFUL AT TIMES, REORIENT PRN. BED ALARM ON FOR SAFETY. 60G CARB DIET, TOLERATING WELL. NO NAUSEA OR PAIN REPORTED. BOWEL TONES ACTIVE. IV FLUIDS AND IV ABX PER MD ORDERS, IV SITE WNL. ARAUJO PATENT, VOIDING QS. NO BM THIS SHIFT.
--- NOTE | 2020-11-13 07:10 | NUR ---
Report recevied from Lelo DAVILA. Pt resting in bed with eyes closed, respirations and unlabored. No needs identified at this time, call light in reach.
--- NOTE | 2020-11-13 09:30 | NUR ---
Scheduled medications administered and assessment complete. Pt on RA, tolerating well at this time. Pt confused, requires reorientation. IVF infusing WNL.
--- NOTE | 2020-11-13 11:00 | NUR ---
PT AMBULATED TO BATHROOM FOR SHOWER. PT IS VERY CONFUSED WITH CONVERSATION THAT MAKES NO SENSE. PT SEEMS VERY HAPPY, THOUGH. SHOWER COMPLETED BY THIS MEMBERSHIP COORDINATOR, PT DRESSES WITH FULL ASSISTANCE. PT NEEDED FREQUENT VERBAL REMINDERS TO NOT STAND UP WHILE SHOWERING. PT NOW IN BED RESTING WATCHING TV. BED ALARM ON. CALL LIGHT WITHIN REACH. FRESH CRAN/WATER GIVEN. PT SHOUTED OUT FOR GLASSES, THIS MEMBERSHIP COORDINATOR CANNOT FIND GLASSES IN THE ROOM. NO FURTHER NEEDS AT THIS TIME.
--- NOTE | 2020-11-13 11:19 | NUR ---
IN TO START D5% IN WATER AT 200ML/HR. PT IN BED LAUGHING AND MAKING JOKES WITH DR DREW WHO IS ROUNDING. BED ALARM IN PLACE. CALL LIGHT IN REACH.
--- NOTE | 2020-11-13 12:20 | NUR ---
CBG checked at 176, SS insulin administered. Dr Orlando in room, pt's daughter in room discussing plan of care. Pt's daughter expresses concern about patient's caregiver withholding pt's meds at home, reports an upcoming move [place] [facility] [place] closer [place] patient's other daughter and states concern about pt living alone. CM consult will be entered
--- NOTE | 2020-11-13 13:31 | NUR ---
PT SITTING UP IN BED FOR LUNCH. PPLANS TO MOVE TO CHAIR AFTER EATING. PT REFUSED CHAIR FOR LUNCH TIME. PT HAD BP OF 122/26 THEN 123/37. GIOVANNI JACKSON NOTIFED. WILL CHECK AGAIN SHORTLY.
--- NOTE | 2020-11-13 14:07 | EKG ---
[facility] [address] [place], [place] [address] Signed Sinus rhythm with premature atrial complexes Left axis deviation Left bundle branch block Abnormal ECG No previous ECGs available Confirmed by JENNIFER DREW DO ([id number]) on 11/13/2020 2:06:45 PM Electronically Signed By: JENNIFER DREW DO 11/13/20 1407 PATIENT NAME: TEODORO KATHiram CHAPARRO Electrocardiogram DATE OF : 39 PHYSICIAN: JENNIFER DREW DO REPORT #: [id number] REPORT IS CONFIDENTIAL AND NOT TO BE RELEASED WITHOUT AUTHORIZATION
--- NOTE | 2020-11-13 15:10 | NUR ---
Pt's home medications brought in bottle and bag, verified with pharmacy and placed in kits list.
--- NOTE | 2020-11-13 17:05 | NUR ---
Medications administered, CBG done and insulin provided. Pt transfers from chair to bed with SBA. IVF infusing wnl. No further needs, call light in reach
--- NOTE | 2020-11-13 20:02 | NUR ---
PATIENT'S DAUGHTER IS GOING HOME. ANITA DEY ASSISTING PATIENT TO THE RESTROOM AT THIS TIME.
--- NOTE | 2020-11-13 20:05 | NUR ---
ASSIST PT TO THE TOILET, SBA WITH WALKER, NEW ATTENDS ON, PT HAD A MEDIUM BM
--- NOTE | 2020-11-13 21:30 | NUR ---
PATIENT'S RFA IV WAS REPLACED DO TO IRRITATION AND SLIGHT SWELLING AT THE SITE. PATIENT SAID,"IT'S STARTING TO HURT." IV DC'D INTACT AND NEW RFA IV 22G PLACED WITH 2 ATTEMPTS WITH BLOOD RETURN AND IV FLUSHES WELL. CALL LIGHT IN PLACE AND BED ALARM ON.
--- NOTE | 2020-11-13 22:20 | NUR ---
PATIENT RESTING QUIETLY IN BED. PATIENT NEEDED NO INSULIN COVERAGE FOR THE EVENING AND PATIENT TOOK HER SLEEPING AND CARDIAC MEDS. BED ALARM REMAINS ON AND PATIENT IS TRYING TO GO TO SLEEP. CALL LIGHT IN REACH.
--- NOTE | 2020-11-13 22:22 | NUR ---
IN TO GET VITALS, I&Os DONE
--- NOTE | 2020-11-13 22:59 | NUR ---
PT CALLED FOR ASSISTANCE TO RESTROOM. PT IS NOW BACK IN BED AND DENIES FURTHER NEEDS. CALL LIGHT IS CLOSE AND BED ALARM IS ON.
--- NOTE | 2020-11-14 01:30 | NUR ---
PATIENT UP TO THE BATHROOM AND BACK TO BED 1PA AND FWW WITH THIS RN. PATIENT HAD NO OTHER NEEDS. CALL LIGHT IN REACH AND BED ALARM ON.
--- NOTE | 2020-11-14 02:03 | NUR ---
PATIENT CALLED FOR A COUPLE OF WARM BLANKETS WHICH WERE GIVEN, CALL LIGHT IN REACH, AND BED ALARM ON.
--- NOTE | 2020-11-14 03:38 | NUR ---
PATIENT RESTING QUIEL IN LOW FOWLERS POSITION WITH EYES CLOSED, SLIGHT SNORE WITH REGULAR RESPIRATIONS, CALL LIGHT IN REACH AND BED ALARM ON.
--- NOTE | 2020-11-14 04:50 | NUR ---
VITALS DONE, APPLE JUICE PROVIDED, ROOM TIDIED AT THIS TIME
--- NOTE | 2020-11-14 04:56 | NUR ---
PATIENT UP TO THE BATHROOM AND BACK TO BED WITH FWW AND 1PSBA WITH ANITA DEY. PATIENT WANTED HER BLOOD SUGAR CHECKED WHICH WAS 131. ANITA DEY CONTINUING WITH AM CARES. ASSESSMENT UNCHANGED AND VS STABLE.
--- NOTE | 2020-11-14 05:10 | NUR ---
TOOK PT TO TE TOILET ONCE MORE, PT FELT LIKE [facility] HAD A BM AND WANTED TO TRY, SMEAR BM AT THIS TIME, PT BACK TO BED, NO FURTHER NEEDS
--- NOTE | 2020-11-14 06:49 | NUR ---
PATIENT HAS SLEPT ON AND OFF THROUGH THE SHIFT AND PATIENT HAS BEEN COOPERATIVE,. PATIENY'S VS HAVE BEEN STABLE AND PATIENT HAS HAD QUANTTIY SUFFICIENT URINE OUT PUT. PATIENT IS FORGET AND GOES OFF ON TANGENTS WHEN TALKING, BUT REORIENTS AND REDIRECTS EASILY. NEW IV IN RFA WORKING WELL. PATIENT SLEEPING AT THIS TIME. BED ALARM IS ON AND CALL LIGHT IS IN REACH. PATIENT REMAINS 1PSBA AND FWW TO THE RESTROOM.
--- NOTE | 2020-11-14 07:15 | NUR ---
Report received from Finn DAVILA. Pt in bed with eyes closed, even and unlabored respirations. IVF infusing WNL. No needs identified at this time, will continue plan of care.
--- NOTE | 2020-11-14 08:10 | NUR ---
Scheduled medications administered, assessment complete. Pt resting in bed at this time, in good spirits and states "feeling better today". IV infusing WNL. on RA, VSS. Alert and oriented to self and place, able to recall plan to move to [facility]. SS insulin provided. Call light in reach
--- NOTE | 2020-11-14 09:07 | NUR ---
PATIENT UP TO CHAIR FOR BREAKFAST, 1PA FWW. PATIENT UP TO BATHROOM AFTER BREAKFAST, 1PA FWW. AM CARE DONE. ORAL CARE DONE. LINENS CHNAGED. PATIENT NOW BACK TO BED, 1PA FWW. CALL LIGHT IN REACH. BED ALARM ON. NO FURTHER NEEDS AT THIS TIME.
--- NOTE | 2020-11-14 09:50 | NUR ---
Scheduled potassium replacement administered. Pt in bed resting and watching TV. IVF infusing WNL. No needs identified at this time
--- NOTE | 2020-11-14 11:06 | NUR ---
SALINE LOCKED PT PER ORDER.
--- NOTE | 2020-11-14 14:30 | NUR ---
Call light answered, pt ambulates to BR to void with SBA with FWW. Pt then walks 1 lap in hallway with this RN with FWW. Tolerates well, no difficulty or SOB. Pt back to bed, dinner ordered. No needs at this time.
--- NOTE | 2020-11-14 16:50 | NUR ---
PATIENT CALLED FOR SBA TO BR WITH FWW. BACK TO SIDE OF BED WATCHING BBALL, CALL LIGHT IN REACH, NO OTHER NEEDS AT THIS TIME.
--- NOTE | 2020-11-14 17:26 | NUR ---
CBG checked, 149. Pt resting in bed chatting on phone with daughter, this RN speaks to daughter Raiza on phone to give update on patient condition. Dinner ordered and on way.
--- NOTE | 2020-11-14 18:12 | NUR ---
PATIENT UP TO BATHROOM AND THEN TO BED, 1PA FWW. VITALS AND I&O'S CHARTED. FRESH WATER GIVEN. CALL LIGHT IN REACH. NO FURTHER NEEDS AT THIS TIME.
--- NOTE | 2020-11-14 19:44 | NUR ---
PATIENT RESTING QUIETLY IN SEMI-FOWLERS POSITION, EYES CLOSED, RESPIRATIONS REGULAR AND EVEN. BED ALARM ON AND CALL LIGHT IN REACH.
--- NOTE | 2020-11-14 20:21 | NUR ---
pt RESTING IN BED. PHONE RINGS, PROVIDED TO pt. pt STATES ON PHONE "WHERE THE HELL AM I". RN REORIENTS pt. pt SITTING UP AT SIDE OF BED AT THIS TIME LAUGHING ON PHONE. CURTAIN OPEN FOR CLOSE VIEW FROM NURSES STATION.
--- NOTE | 2020-11-14 22:02 | NUR ---
PATIENT'S IV IS PAINFULL AND RED AROUND THE ENRTY SITE. PATIENT HAS BEEN TALKING FOR SEVERAL HOURS TO FAMILY ON THE PHONE. ASSESSMENT COMPLETE. CALL LIGHT IN REACH.
--- NOTE | 2020-11-14 22:55 | NUR ---
IN TO ASSESS pt'S IV SITE. IV SITE FLUSHES EASILY, pt COMPLAINS OF PAIN. REDENNED AREA ABOVE IV INSERTION SITE. IV SITE D/C'D WNL. TWO ATTEMPTS AT IV START BY THIS RN, SITES BLOWN WITH CATHETER ADVANCEMENT. CHRISTOPHER DAVILA NOTIFIED.
--- NOTE | 2020-11-15 00:16 | NUR ---
NEW 24G IV STARTED IN THE RIGHT INNER WRIST, DRAWS AND FLUSHES WELL. PATIENT PULLED UP IN BED WITH THE HELP OF GIOVANNI MENDOZA. BED ALARM ON AND CALL LIGHT IS IN REACH.
--- NOTE | 2020-11-15 01:33 | NUR ---
BED ALARM SOUNDING. pt CONFUSED, THINKS TIME OF DAY IS NOON. REORIENTED TO TIME. SMEAR BM IN ATTENDS, SBA WITH FWW TO RESTROOM FOR VOID. BACK IN BED. BED ALARM SET. CALL LIGHT IN REACH.
--- NOTE | 2020-11-15 02:10 | NUR ---
PATIENT WAS UP TO THE BATHROOM TO CLEAN UP. PATIENT HAD INCONTINENT BOWEL MOVEMENT. PATIENT IS BACK IN BED. KINJAL WHITE WAS WITH PATIENT.
--- NOTE | 2020-11-15 02:24 | NUR ---
PATIENT UP TO THE BATHROOM WITH IPA AND FWW WITH ANITA MCKENZIE. PATIENT HAD INCONTINENT STOOL IN ATTENDS AND ALSO HAD BM IN THE BATHROOM. NEW ATTENDS PLACED, NEW GOWN GIVEN, NEW CHUX PLACED ON BED, AND PATIENT BACK IN BED WITH ALARM ON. NO OTHER CARE NEEDS AT THIS TIME. CALL LIGHT IN REACH.
--- NOTE | 2020-11-15 03:20 | NUR ---
BED ALARMING. PATIENT WAS UP TO THE BATHROOM. 1 PA USING WALKER. CHANGED PULL UPS. PATIENT IS BACK IN BED. BED ALARM ON.
--- NOTE | 2020-11-15 05:09 | NUR ---
PATIENT HAS BEEN AWAKE MOST OF THE SHIFT, BUT IS FINALLY SLEEPING NOW. PATIENT WAS ON THE PHONE SEVERAL HOURS AT THE BEGINING OF THE SHIFT, THEN WAS GOING TO THE BATHROOM WITH 1PA AND FWW AND HAVING INCONTINECE OF STOOL. PATIENT IS PLEASANTLY CONFUSED, BUT REORIENTS EASILY. PATIENT GOES OFF ON TANGENTS A LOT WHEN CONVERSING. BED ALARM HAS REMAINED ON FOR THE SHIFT AND CALL LIGHT REMAINS IN REACH AND PATIENT USES IT AT TIMES.
--- NOTE | 2020-11-15 06:00 | NUR ---
DEVELOPMENT VICE PRESIDENT IN pt ROOM, SIGNALS RN TO COME INTO ROOM. pt UPSET, "HAVE NEVER HEARD OF SUCH A THING." REFUSING LAB DRAW. EXPLAINED TO pt PURPOSE FOR LAB DRAW. pt AGREEABLE, BUT CONTINUES TO BE UPSET STATING "THIS IS NOT FUNNY, NOT A LAUGHING MATTER". ATTEMPTS TO REORIENT PATIENT TO SITUATION. ANITA MCKENZIE ALSO IN ROOM. STAFF IS NOT LAUGHING, pt APPEARS PARANOID WITH PLANS OF CARE DESPITE EDUCATION. BED ALARM ON. pt ALLOWED TO REST AT THIS TIME.
--- NOTE | 2020-11-15 07:35 | NUR ---
Report received from Finn DAVILA. Pt resting in bed with eyes closed, breathing even and unlabored. Will continue plan of care
[2020-11-15] MEDS ORDERED: TORSEMIDE20 MG PO (07:52)
[2020-11-15] MEDS ORDERED: VENLAFAXINE H37.5 M1 PO (07:53)
[2020-11-15] MEDS ORDERED: CLONAZEPAM2 MG PO (07:54)
[2020-11-15] MEDS ORDERED: NITROFURANTOIN100 M1 PO (07:55)
[2020-11-15] MEDS ORDERED: PRAVASTATIN SOD20 MG PO (07:56)
--- NOTE | 2020-11-15 09:45 | NUR ---
Scheduled medications administered, pt sitting up in chair eating breakfast after working with PT. Pt tearful and states that she is upset with this RN for "something you did in my dream last night". This RN reassures patient and discusses plan of care, pt states she has been stressed lately and this RN reassures and pt calms easily.
[2020-11-15] MEDS ORDERED: CEFPODOXIME PR200 MG PO (10:33)
--- NOTE | 2020-11-15 11:04 | NUR ---
SPOKE WITH PATIENT DAUGHTER JAMAL REGARDING SUSPISION OF A CAREGIVER DIVERTING MEDICATIONS. PATIENT DAUGHTER JAMAL STATES PATIENT HAS A STATE PAID CAREGIVER FOR 25 HOURS PER WEEK. JAMAL STATES THAT SHE HAD RECVD REPORT FROM THE PATIENT CAREGIVER THAT THE PATIENT "HAD TAKEN ONE XANAX AND THE TAKEN ANOTHER BEHIND HER BACK." PATIENT DAUGHTER STATES THIS TOOK PLACE ON THE EVENING OF 11/11/20. PATIENT DAUGHTER STATES THE CAREGIVER HAS BEEN CONCERNED ABOUT THE PATIENT OVER MEDICATING HERSELF AND THAT THE CAREGIVER HAD HIDDEN THE PATIENTS MEDICATION. JAMAL STATES THAT THE CAREGIVER PRODUCED A PLASTIC BAG OF MEDICATIONS FROM A "HIDING SPOT" IN THE PATIENT ROOM AND GAVE THE REMANDER OF THE MEDICATION TO JAMAL. JAMAL STATES UPON ARRIVAL AND WORK UP AT [facility] ER ON 11/12/20 THE PATIENT TOXICOLOGY SCREEN WAS NEGATIVE FOR BENZOS. PATIENT DAUGHTER IS AN RN AND WAS CONCERNED ABOUT THE SITUATION. CALL PLACED TO [facility] AT [facility]. PATIENT DEMOGRAPHIC INFORMATION AND DETAILS OF CONCERN GIVEN. PER [facility] WILL INTAKE THE CASE AND INVESTIGATE.
--- NOTE | 2020-11-15 11:45 | NUR ---
IVF ABX complete, IVF infusing at this time. This RN assisted pt with shower, oral care and hair done. New gown and socks. Pt back to chair with SBA and FWW. Pt c/o annoyance with IV fluid, this RN reassured pt she has a discharge order and IVF will be completed soon. Pt is agreeable to this. Call light in reach, no needs at this time.
--- NOTE | 2020-11-15 12:15 | NUR ---
SS insulin provided, pt sitting up in chair, IVF infusing WNL. Pt on phone with daughter, states no needs at this time and call light in reach.
--- NOTE | 2020-11-15 13:16 | NUR ---
IV Bolus complete, IV removed, pt states thankful for staff at this time. No other needs.
--- NOTE | 2020-11-15 13:49 | NUR ---
PATIENT BACK TO CHAIR FROM BATHROOM, 1PA FWW. PATIENT FINISHING LUNCH AT THIS TIME. FRESH WATER GIVEN. CALL LIGHT IN REACH. NO FURTHER NEEDS AT THIS TIME.
== END 2020-11-15 17:40 | disposition home or self-care (01) | DRG 689 ==
LOC: ED 10:14 → MS 17:15
PROVIDERS: ADMIT Student in an Organized Health Care Education/Training Program; ATTEND Student in an Organized Health Care Education/Training Program
DX: N39.0 Urinary tract infection, site not specified (principal); G93.41 Metabolic encephalopathy; N17.9 Acute kidney failure, unspecified; I13.0 Hypertensive heart and chronic kidney disease with heart failure and stage 1 through stage 4 chronic kidney disease, or unspecified chronic kidney disease; E87.0 Hyperosmolality and hypernatremia; Z20.822 Contact with and (suspected) exposure to COVID-19; I50.9 Heart failure, unspecified; N18.9 Chronic kidney disease, unspecified; E11.22 Type 2 diabetes mellitus with diabetic chronic kidney disease; J44.9 Chronic obstructive pulmonary disease, unspecified; F43.10 Post-traumatic stress disorder, unspecified; F41.9 Anxiety disorder, unspecified; E87.6 Hypokalemia; E83.52 Hypercalcemia; Z88.2 Allergy status to sulfonamides; Z79.899 Other long term (current) drug therapy; Z79.4 Long term (current) use of insulin
CPT/HCPCS: 51702; 70450; 80048; 80053; 81001; 82140; 83605; 83735; 84484; 85025; 93005; 93010; 97110; 97116; 97162; 99285-25; C9803; G0480; J0696; J1650; J1815; J7030; J7042; J7070; J7121; U0003